=== PATIENT | female | born 1950 | race Caucasian/White ===

== ENCOUNTER → 2017-07-13 | Outpatient (CLI) | payer OTHER | LOC: M WUC 14:29 | DX: J20.9 Acute bronchitis, unspecified (principal) ==

== ENCOUNTER 2018-04-18 07:52 | Inpatient (IN) | payer OTHER, MEDICARE ==
[~2018-04-18] VITALS: Ht 172.7 cm; Wt 87.3 kg
[2018-04-18] MEDS ORDERED: HYDR-3713 PO (08:12)
[2018-04-18] MEDS ORDERED: ATOR1TAB19 PO (08:12)
[2018-04-18] MEDS ORDERED: METO1TAB7 PO (08:12)
[2018-04-18] MEDS ORDERED: IBUP-1022 PO (08:12)
[2018-04-18] MEDS ORDERED: ACETAMINOPHEN 325 MG TAB PO ONE (08:15)
[2018-04-18] MEDS ORDERED: LIDOCAINE 5% (LIDODERM) PATCH TD ONE (08:15)
[2018-04-18 08:34] LABS: BASO % 0.3 % (0.0-1.0); EOS % 0.1 % (0.0-3.0); HEMATOCRIT 42.8 % (36.0-47.0); HEMOGLOBIN 14.9 g/dl (12.0-15.5); LYMPH # 1.2 10^3/uL (1.5-4.5); LYMPH % 18.1 % (24.0-44.0); MEAN CORPUSCULAR HEMOGLOBIN 30.5 pg (27.0-33.0); MEAN CORPUSCULAR HGB CONC 34.8 g/dl (32.0-36.5); MEAN CORPUSCULAR VOLUME 87.5 fl (80.0-96.0); MONO # 0.3 10^3/uL (0.0-0.8); MONO % 4.9 % (0.0-5.0); NEUTROPHILS # 5.2 10^3/uL (1.8-7.7); PLATELET COUNT, AUTOMATED 291 10^3/uL (150-450); RED BLOOD COUNT 4.89 10^6/uL (4.00-5.40); WHITE BLOOD COUNT 6.8 10^3/uL (4.0-10.0)
[2018-04-18 09:09] LABS: ALBUMIN 4.3 GM/DL (3.2-5.2); ALT/SGPT 50 U/L (12-78); BILIRUBIN,TOTAL 0.6 MG/DL (0.2-1.0); BLOOD UREA NITROGEN 15 MG/DL (7-18); CALCIUM LEVEL 9.7 MG/DL (8.8-10.2); CARBON DIOXIDE LEVEL 21 MEQ/L (21-32); CHLORIDE LEVEL 104 MEQ/L (98-107); CREATININE FOR GFR 0.72 MG/DL (0.55-1.30); GLOMERULAR FILTRATION RATE > 60.0 (>45); GLUCOSE, FASTING 130 MG/DL (70-100); POTASSIUM SERUM 3.7 MEQ/L (3.5-5.1); SODIUM LEVEL 138 MEQ/L (136-145); TOTAL PROTEIN 7.2 GM/DL (6.4-8.2)
--- NOTE | 2018-04-18 09:19 | REP ---
CT abdomen and pelvis without contrast: History: Right-sided back pain. Flank pain. No comparison study. Findings: Preliminary digital application architect radiograph demonstrates a large rim calcification in the right upper quadrant. Bowel gas pattern is normal. On axial images at the lung bases, there is a nodular opacity at the right lower lobe which is incompletely evaluated 6 mm in greatest diameter visible on the uppermost 3 mm slice in the examination. There is linear fibrosis in the lingula. Lung bases are otherwise clear. The liver and spleen are normal in size, homogeneous in texture. There is a small accessory splenule. There is a small sliding hiatal hernia. A large calcified gallstone is seen in the lumen of the gallbladder. Gallbladder wall is not visibly thickened. Normal adrenal glands are seen bilaterally. No pancreatic abnormality is observed. The kidneys appear morphologically intact. No hydronephrosis or intrarenal calculus is seen. There is a dextroconvex scoliotic curve. Normal appendix is seen retrocecal in position. Small and large intestinal bowel loops are unremarkable. There is a small cyst in the right adnexa consistent with an ovarian cyst. This measures 2.7 cm in diameter. No uterine or left adnexal abnormality is seen. Urinary bladder is unremarkable. There is no evidence of diverticulosis or diverticulitis. No abdominal wall defect is seen. There is no evidence of free air or abnormal fluid collection. Bone window settings show no bony destructive lesion. Impression: Cholelithiasis with a large densely calcified gallstone in the gallbladder lumen. Small sliding-type hiatal hernia. Normal appendix. No urinary calculus or hydronephrosis seen. Also noted is a 6 mm nodule in the right lower lobe at the upper most slice in the CT acquisition. This is incompletely seen. Consider chest CT study. Electronically Signed by Mukul Bhatia MD 04/18/2018 11:27 A
[2018-04-18] MEDS: MORPHINE 4 MG/ML 1ML VIAL/SYRINGE (J2270) IV PRN ×4 (09:33→18:03)
[2018-04-18] MEDS ORDERED: diazePAM 5 MG TAB PO ONE (11:30)
[2018-04-18 12:21] LABS: C REACTIVE PROTEIN QUANTITATIV < 0.30 MG/DL (0.00-0.30)
[2018-04-18 12:59] LABS: ERYTHROCYTE SEDIMENTATION RATE 7 mm/hr (0-30)
--- NOTE | 2018-04-18 14:13 | REP ---
Pelvis right hip: Three views. History: Pain. Findings: AP view of the pelvis and AP and frog-leg views of the right hip are presented. Femoral heads are smooth and rounded and hip joint spaces are preserved. No hip fracture or pelvic fracture is seen. No sacral fractures noted. Visualized bowel gas pattern is unremarkable. Impression: No acute bony abnormality. Electronically Signed by Mukul Bhatia MD 04/18/2018 02:05 P
[2018-04-18] MEDS ORDERED: ADVI200T26 PO (14:57)
[2018-04-18] MEDS ORDERED: ALEV220T26 PO (14:57)
[2018-04-18] MEDS ORDERED: CALCTAB8 PO (14:57)
[2018-04-18] MEDS ORDERED: TURM500T PO (14:57)
[2018-04-18] MEDS ORDERED: ACETAMINOPHEN TAB 650MG DOSE (2X325MG) PO PRN (15:00)
--- NOTE | 2018-04-18 15:52 | HPE ---
DATE OF ADMISSION: 04/18/2018 PRIMARY CARE PROVIDER: Dr. Bonds CONSULTANTS: Dr. Adame from orthopaedic service ATTENDING PHYSICIAN: Dr. Taylor Cano CHIEF COMPLAINT: Intractable low back pain since Sunday. HISTORY OF PRESENT ILLNESS: The patient is a 68-year-old white female who presents to the hospital for evaluation of worsening low back pain. The history is provided by herself and she is a good historian. She states back to 1986 she had an L5 disc herniation for which she underwent surgical treatment. She does not have chronic low back pain. Also, she states she is receiving physical therapy with a physical therapist regularly. She states she was fine until Sunday when she woke up, she says she felt a little bit of pain in her low back which was mild and she was still able to be functioning normally. Prior to that she denies any injury or fall. However, in the next couple of days, her pain was getting worse gradually and she was trying to see her physical therapist but did not get an appointment yet. Today, she stated her pain is up to a 10/10 pain. She was trying to take nonsteroidal antiinflammatory drugs (NSAIDs) which did not help her. Also, she states sometimes the pain radiates to her right buttock and right lower extremity and she feels some numbness in the right side. She does not have any difficulty urinating or with bowel movements. After she came to the emergency room (ER), she was given IV morphine. After that, her pain has been getting better. She underwent x-ray, CT scan which was not significant. Due to worsening pain, she had a lumbar spine MRI done in the ER but formal report is pending at this point in time. Initially, the ER was planning to discharge her home. However, she has severe pain and not able to ambulate, so medicine service was called for admission. REVIEW OF SYSTEMS: Denies fever, no chills. No headache, no blurred vision. No shortness of breath, no chest pain. No abdominal pain, no nausea, no vomiting, no diarrhea or constipation. No dysuria. Except lower back and right buttock pain, otherwise not any other complaints. All other systems reviewed, but negative. PAST MEDICAL HISTORY: 1. Hypertension. 2. Dyslipidemia. PAST SURGICAL HISTORY: L5 disc surgery back to 1986, breast reduction, and tubal ligation. ALLERGIES: She is allergic to ERYTHROMYCIN, STREPTOMYCIN. SOCIAL HISTORY: Denies tobacco use. Denies alcohol abuse. Denies illicit drug abuse. She is living at home with her . She is a [employer]. FAMILY HISTORY: Both parents . Father from lymphoma and mother from leukemia. MEDICATIONS: Reviewed. PHYSICAL EXAMINATION: VITAL SIGNS: Temperature 97.4, heart rate 76, respiratory rate 18, blood pressure 170/89, oxygen saturation 99% on room air. GENERAL: She is awake, alert, oriented times three. She is in acute distress. HEENT: Atraumatic. Pupils equal, round, reactive to light. Ears, nose, and throat normal. No jaundice. Extraocular muscles intact. Mouth: Mucosa not dry. NECK: No jugular venous distention (JVD), no bruits. LUNGS: Clear, no wheezing, no crackles. HEART: S1, S2, regular, no murmur. ABDOMEN: Soft, bowel sounds positive, nontender. LOWER EXTREMITIES: No edema in bilateral lower extremities. NEUROLOGICAL: Focal, and regarding her low back pain she has severe tenderness in her right buttock area and also any movement of the right lower extremity makes the pain worse. SKIN: No rash. PSYCHOLOGICAL: No acute psychosis. DIAGNOSTIC AND LABORATORIES: Include the following: CBC and differential: WBC 6.8, hemoglobin and hematocrit 14.9/42, platelets 291. Sodium 138, potassium 3.7, chloride 104, bicarbonate 21, BUN 15, creatinine 0.7, glucose 130. CT of the abdomen and pelvis demonstrated positive gallstone. Lumbar spine MRI is pending. IMPRESSION: 1. Intractable low back pain. 2. Hypertension. 3. Dyslipidemia. PLAN: Patient will be admitted to the medical/surgical floor. Will treat with symptomatic and supportive. Will start her on oral steroid. Dr. Adame will consult on the patient. BRINDA
--- NOTE | 2018-04-18 15:57 | REP ---
MR LUMBAR SPINE WITHOUT CONTRAST: HISTORY: Back and right leg pain. Decreased signal intensity on T2-weighted images is present in the L2-3 through L5-S1 intervertebral discs. The discs are decreased in height. These findings are consistent with disc degeneration. A diffuse disc bulge is present at the L1-2 level. There is minimal compression of the thecal sac. There is hypertrophy of the ligamenta flava and posterior articulating facets. L1 nerves exit the neural foramina without compression. A diffuse disc bulge is present at the L2-3 level. There is minimal compression of the thecal sac. There is hypertrophy of the ligamenta flava and posterior articulating facets. The L2 nerves exit the neural foramina without compression. A diffuse disc bulge is present at the L3-4 level. There is hypertrophy of the ligamenta flava and posterior articulating facets. These findings produce mild central canal stenosis. There is compression of the left L3 nerve in the neural foramen. The right L3 nerve exits the neural foramen without compression. A diffuse disc bulge and mild sized right paracentral disc extrusion are present at the L4-5 level. there is inferior migration of disc material. There is hypertrophy of the ligamenta flava and posterior articulating facets. These findings produce moderate central canal stenosis. There is compression of the right L5 nerve in the right L5 lateral recess. The L4 nerves exit the neural foramina without compression. A diffuse disc bulge is present at the L5-S1 level. This abuts the thecal sac. There are 3 mm of retrolisthesis of L5 on S1. There is hypertrophy of the posterior articulating facets. There is compression of the right L5 nerve in the neural foramen. The left L5 nerve exits the neural foramen without compression. A right laminectomy defect is present. Scar tissue is present in the right lateral aspect of the spinal canal. The scar tissue involves the right S1 nerve. The conus medullaris is normal in appearance terminating at the level of the T12-L1 intervertebral discs . Increased signal intensity on T2-weighted images is present in the end plates of the L3-L4 vertebral bodies. This represents degenerative changes. IMPRESSION: 1. Diffuse disc bulges at the L1-2 and L2-3 levels with minimal thecal sac compression. 2. Mild central canal stenosis at the L3-4 level secondary to disc bulge, ligamentous, and facet hypertrophy. There is compression of the left L3 nerve in the neural foramen. 3. Moderate central stenosis at the L4-5 level secondary to disc bulge, disc extrusion, ligamentous and facet hypertrophy. There is compression of the right L5 nerve in the right L5 lateral recess. 4. Diffuse disc bulge at the L5-S1 level. This abuts the thecal sac. There is compression of the right L5 nerve in the neural foramen. A right laminectomy defect is present. Scar tissue involves the right S1 nerve. Electronically Signed by Michael Moncada MD 04/18/2018 04:32 P
[2018-04-18] MEDS ORDERED: methylPREDNISolone 4 MG TAB PO ONE ×2 (16:00→21:00)
[2018-04-18] MEDS: PERCOCET 5MG/325MG TAB PO PRN ×2 (16:03→20:55)
[2018-04-18 17:16] VITALS: BP 164/74
--- NOTE | 2018-04-18 17:35 | CR ---
DATE OF CONSULTATION: 04/18/2018 CONSULTATION FOR: Dr. Sheldon This is a 68-year-old woman I was asked to evaluate for significant low back pain and right lower extremity radiculopathy over the past 3 days. She relates that she had a discectomy at L5-S1 I believe back in [address] Bergman and has overall done pretty well with her back. She intermittently sees a chiropractor for back and neck issues. She does intermittently get some right lower extremity sciatica, but she backs off her activity and the symptoms seem to subside. She thinks that Sunday night or Sunday morning when she awoke that she started having this right-sided lower back pain and buttocks pain that occasionally radiates down her right leg to the bottom of her foot. No real numbness. No bowel/bladder incontinence. No weakness, but she says the pain has gotten gradually worse. She has tried anti-inflammatory medications without much benefit, did get some benefit out of IV medication in the emergency room. She has had a CT scan, MRI scan done so far. Has also had plain x-rays of her pelvis and hip. REVIEW OF SYSTEMS: Denies any fever or chills. She denies any blurred vision or shortness of breath. No chest pain. Denies any abdominal pain, nausea. She denies any endocrine abnormalities. No dysuria. No incontinence. PAST MEDICAL HISTORY: Notable for hypertension and hyperlipidemia. PAST SURGICAL HISTORY: As noted for L5-S1 discectomy back in 1986, breast reduction and tubal ligation. ALLERGIES: Include ERYTHROMYCIN and STREPTOMYCIN. SOCIAL HISTORY: She lives with her . Denies any drug or alcohol use. Denies tobacco use. FAMILY HISTORY: Otherwise noncontributory to this situation. MEDICATIONS: As above. PHYSICAL EXAMINATION: She is alert and oriented, in some distress, some degree of right-sided lower back discomfort. She is not currently getting any sciatic symptoms. HEENT: Extraocular muscles intact. She has regular rate and rhythm to her breathing. Regular pulse. Abdomen: Soft, nontender. Extremities were somewhat limited to exam due to her discomfort. She was able to dorsiflex her ankles, 5/5 strength. She had good plantar flexion. She has what appears to be 2+ reflexes in her knees and difficult to gauge her ankle reflexes. She has no obvious muscle atrophy. She does relate some right-sided lower back tenderness and right buttocks tenderness. Lab work as noted. CT scan abdomen and pelvis was obtained which shows cholelithiasis with a large gallstone. Hiatal hernia. No hydronephrosis. A nodule in the right lower lobe of the lung, and they are recommending considering a chest CT study. The pelvis and hip x-ray was otherwise unremarkable. No significant evidence of any fracture or arthritic change. Her lumbar spine MRI showed disc bulges at L1-2 and L2-3. There was some mild stenosis at L3-4 with compression of the left L3 nerve root, moderate stenosis at L4-5 with compression of the right L5 nerve in the right L5 lateral recess. Diffuse disc bulging at L5-S1. This also causes compression on the right L5 nerve root. Previous surgical findings noted. There is some right S1 nerve root scarring per this report. IMPRESSION: Low back pain and right lower extremity sciatica that is fairly significant. RECOMMENDATIONS: 1. Activity as tolerated and would consider physical therapy evaluation and treatment. 2. Would recommend hospitalist consideration for working up the right lower lobe finding on the CT scan. 3. As I discussed with the consulting physician, I would advise getting the pain service involved as soon as possible, especially given that the weekend is coming up, for consideration for epidural steroid injections. I hope that this is something that could be accomplished tomorrow, and I think would be likely helpful for her. 4. Continue with intravenous (IV) pain medication per routine. 5. If she has any worsening symptoms or bowel, bladder changes, or incontinence, or weakness, then please contact us immediately. 6. If she is refractory to conservative management, we certainly could get an opinion from an orthopedic spine surgeon. Thank you for the consult.
[2018-04-18] MEDS: DOCUSATE SODIUM 100 MG CAP PO SCH (20:53)
[2018-04-18] MEDS: HEPARIN SOD (PORCINE) 5000 UNITS/ML VIAL SC SCH (20:53)
[2018-04-18] MEDS: ATORVASTATIN 10 MG TAB PO SCH (20:53)
[2018-04-18 22:00] VITALS: BP 172/82
[2018-04-18] MEDS: **NOTE PATIENT COMMENT** MISC XX SCH (23:35)
[2018-04-18] MEDS: METOPROLOL SUCC (TopROL XL) 50MG **XL** TAB PO SCH (23:36)
[2018-04-19] MEDS: MORPHINE 4 MG/ML 1ML VIAL/SYRINGE (J2270) IV PRN ×5 (00:12→22:36)
[2018-04-19] MEDS: PERCOCET 5MG/325MG TAB PO PRN ×5 (04:39→22:37)
[2018-04-19] MEDS: HEPARIN SOD (PORCINE) 5000 UNITS/ML VIAL SC SCH ×4 (05:56→20:51)
[2018-04-19 06:00] VITALS: BP 153/71
[2018-04-19 08:41] LABS: BASO % 0.1 % (0.0-1.0); HEMOGLOBIN 15.1 g/dl (12.0-15.5); LYMPH # 1.5 10^3/uL (1.5-4.5); LYMPH % 17.7 % (24.0-44.0); MEAN CORPUSCULAR HEMOGLOBIN 30.5 pg (27.0-33.0); MEAN CORPUSCULAR HGB CONC 33.6 g/dl (32.0-36.5); MEAN CORPUSCULAR VOLUME 90.9 fl (80.0-96.0); MONO # 0.2 10^3/uL (0.0-0.8); MONO % 2.8 % (0.0-5.0); NEUTROPHILS # 6.5 10^3/uL (1.8-7.7); NEUTROPHILS % 78.8 % (36.0-66.0); PLATELET COUNT, AUTOMATED 337 10^3/uL (150-450); RED BLOOD COUNT 4.95 10^6/uL (4.00-5.40); WHITE BLOOD COUNT 8.3 10^3/uL (4.0-10.0)
[2018-04-19] MEDS: DOCUSATE SODIUM 100 MG CAP PO SCH ×2 (08:41→20:51)
[2018-04-19] MEDS: PANTOPRAZOLE 40MG TAB (PROTONIX) PO SCH (08:43)
[2018-04-19] MEDS: methylPREDNISolone 4 MG TAB PO SCH ×3 (08:44→20:51)
[2018-04-19 09:04] LABS: BLOOD UREA NITROGEN 15 MG/DL (7-18); C REACTIVE PROTEIN QUANTITATIV < 0.30 MG/DL (0.00-0.30); CALCIUM LEVEL 9.5 MG/DL (8.8-10.2); CARBON DIOXIDE LEVEL 25 MEQ/L (21-32); CHLORIDE LEVEL 104 MEQ/L (98-107); CREATININE FOR GFR 0.79 MG/DL (0.55-1.30); GLOMERULAR FILTRATION RATE > 60.0 (>45); GLUCOSE, FASTING 121 MG/DL (70-100); POTASSIUM SERUM 4.6 MEQ/L (3.5-5.1); SODIUM LEVEL 138 MEQ/L (136-145)
[2018-04-19 09:14] LABS: ERYTHROCYTE SEDIMENTATION RATE 5 mm/hr (0-30)
[2018-04-19] MEDS ORDERED: ISOVUE-370 76% 100ML VIAL (Q9967) As Ordered ONE (13:02)
--- NOTE | 2018-04-19 13:11 | IPNPDOC ---
Date Seen The patient was seen on 04/19/18. Progress Note SUBJECTIVE: Denies fever, no chills. No headache, no blurred vision. No shortness of breath, no chest pain. No abdominal pain, no nausea, no vomiting, no diarrhea or constipation. No dysuria. Except lower back and right buttock pain, otherwise not any other complaints. All other systems reviewed, but negative. OBJECTIVE: PHYSICAL EXAMINATION: VITAL SIGNS: PLS SEE BELOW GENERAL: She is awake, alert, oriented times three. She is in acute distress. HEENT: Atraumatic. Pupils equal, round, reactive to light. Ears, nose, and throat normal. No jaundice. Extraocular muscles intact. Mouth: Mucosa not dry. NECK: No jugular venous distention (JVD), no bruits. LUNGS: Clear, no wheezing, no crackles. HEART: S1, S2, regular, no murmur. ABDOMEN: Soft, bowel sounds positive, nontender. LOWER EXTREMITIES: No edema in bilateral lower extremities. NEUROLOGICAL: Focal, and regarding her low back pain she has severe tenderness in her right buttock area and also any movement of the right lower extremity makes the pain worse. SKIN: No rash. PSYCHOLOGICAL: No acute psychosis. DIAGNOSTIC AND LABORATORIES: ON HOSPITAL ADMISSION CBC and differential: WBC 6.8, hemoglobin and hematocrit 14.9/42, platelets 291. Sodium 138, potassium 3.7, chloride 104, bicarbonate 21, BUN 15, creatinine 0.7, glucose 130. IMAGING STUDIES: MR LUMBAR SPINE WITHOUT CONTRAST: HISTORY: Back and right leg pain. Decreased signal intensity on T2-weighted images is present in the L2-3 through L5-S1 intervertebral discs. The discs are decreased in height. These findings are consistent with disc degeneration. A diffuse disc bulge is present at the L1-2 level. There is minimal compression of the thecal sac. There is hypertrophy of the ligamenta flava and posterior articulating facets. L1 nerves exit the neural foramina without compression. A diffuse disc bulge is present at the L2-3 level. There is minimal compression of the thecal sac. There is hypertrophy of the ligamenta flava and posterior articulating facets. The L2 nerves exit the neural foramina without compression. A diffuse disc bulge is present at the L3-4 level. There is hypertrophy of the ligamenta flava and posterior articulating facets. These findings produce mild central canal stenosis. There is compression of the left L3 nerve in the neural foramen. The right L3 nerve exits the neural foramen without compression. A diffuse disc bulge and mild sized right paracentral disc extrusion are present at the L4-5 level. there is inferior migration of disc material. There is hypertrophy of the ligamenta flava and posterior articulating facets. These findings produce moderate central canal stenosis. There is compression of the right L5 nerve in the right L5 lateral recess. The L4 nerves exit the neural foramina without compression. A diffuse disc bulge is present at the L5-S1 level. This abuts the thecal sac. There are 3 mm of retrolisthesis of L5 on S1. There is hypertrophy of the posterior articulating facets. There is compression of the right L5 nerve in the neural foramen. The left L5 nerve exits the neural foramen without compression. A right laminectomy defect is present. Scar tissue is present in the right lateral aspect of the spinal canal. The scar tissue involves the right S1 nerve. The conus medullaris is normal in appearance terminating at the level of the T12-L1 intervertebral discs . Increased signal intensity on T2-weighted images is present in the end plates of the L3-L4 vertebral bodies. This represents degenerative changes. IMPRESSION: 1. Diffuse disc bulges at the L1-2 and L2-3 levels with minimal thecal sac compression. 2. Mild central canal stenosis at the L3-4 level secondary to disc bulge, ligamentous, and facet hypertrophy. There is compression of the left L3 nerve in the neural foramen. 3. Moderate central stenosis at the L4-5 level secondary to disc bulge, disc extrusion, ligamentous and facet hypertrophy. There is compression of the right L5 nerve in the right L5 lateral recess. 4. Diffuse disc bulge at the L5-S1 level. This abuts the thecal sac. There is compression of the right L5 nerve in the neural foramen. A right laminectomy defect is present. Scar tissue involves the right S1 nerve. Electronically Signed by Michael Moncada MD 04/18/2018 04:32 P DD: Michael Moncada MD 04/18/18 1330 DT: VERNON 04/18/18 1556 DS: DANIELLE 04/18/18 1632 04/18/[address] abdomen and pelvis without contrast: History: Right-sided back pain. Flank pain. No comparison study. Findings: Preliminary digital lacing string cutter radiograph demonstrates a large rim calcification in the right upper quadrant. Bowel gas pattern is normal. On axial images at the lung bases, there is a nodular opacity at the right lower lobe which is incompletely evaluated 6 mm in greatest diameter visible on the uppermost 3 mm slice in the examination. There is linear fibrosis in the lingula. Lung bases are otherwise clear. The liver and spleen are normal in size, homogeneous in texture. There is a small accessory splenule. There is a small sliding hiatal hernia. A large calcified gallstone is seen in the lumen of the gallbladder. Gallbladder wall is not visibly thickened. Normal adrenal glands are seen bilaterally. No pancreatic abnormality is observed. The kidneys appear morphologically intact. No hydronephrosis or intrarenal calculus is seen. There is a dextroconvex scoliotic curve. Normal appendix is seen retrocecal in position. Small and large intestinal bowel loops are unremarkable. There is a small cyst in the right adnexa consistent with an ovarian cyst. This measures 2.7 cm in diameter. No uterine or left adnexal abnormality is seen. Urinary bladder is unremarkable. There is no evidence of diverticulosis or diverticulitis. No abdominal wall defect is seen. There is no evidence of free air or abnormal fluid collection. Bone window settings show no bony destructive lesion Impression: Cholelithiasis with a large densely calcified gallstone in the gallbladder lumen. Small sliding-type hiatal hernia. Normal appendix. No urinary calculus or hydronephrosis seen. Also noted is a 6 mm nodule in the right lower lobe at the upper most slice in the CT acquisition. This is incompletely seen. Consider chest CT study. Electronically Signed by Mukul Bhatia MD 04/18/2018 11:27 A DD: Mukul Bhatia MD 04/18/18 0900 DT: NYDIA 04/18/18 0916 DS: JOLENE 04/18/18 1127 04/18/18 1127 Pelvis right hip: Three views. History: Pain. Findings: AP view of the pelvis and AP and frog-leg views of the right hip are presented. Femoral heads are smooth and rounded and hip joint spaces are preserved. No hip fracture or pelvic fracture is seen. No sacral fractures noted. Visualized bowel gas pattern is unremarkable. Impression: No acute bony abnormality. Electronically Signed by Mukul Bhatia MD 04/18/2018 02:05 P DD: Mukul Bhatia MD 04/18/18 1404 DT: Meri 04/18/18 1405 DS: JOLENE 04/18/18 1405 04/18/18 1405 ASSESSMENT AND PLAN: The patient is a 68-year-old white female who presents to the hospital for evaluation of worsening low back pain. The history is provided by herself and she is a good historian. She states back to 1986 she had an L5 disc herniation for which she underwent surgical treatment. She does not have chronic low back pain. Also, she states she is receiving physical therapy with a physical therapist regularly. She states she was fine until Sunday when she woke up, she says she felt a little bit of pain in her low back which was mild and she was still able to be functioning normally. Prior to that she denies any injury or fall. However, in the next couple of days, her pain was getting worse gradually and she was trying to see her physical therapist but did not get an appointment yet. Today, she stated her pain is up to a 10/10 pain. She was trying to take nonsteroidal antiinflammatory drugs (NSAIDs) which did not help her. Also, she states sometimes the pain radiates to her right buttock and right lower extremity and she feels some numbness in the right side. She does not have any difficulty urinating or with bowel movements. After she came to the emergency room (ER), she was given IV morphine. After that, her pain has been getting better. She underwent x-ray, CT scan which was not sign ificant. Due to worsening pain, she had a lumbar spine MRI done in the ER but formal report is pending at this point in time. Initially, the ER was planning to discharge her home. However, she has severe pain and not able to ambulate, so medicine service was called for admission. Intractable Back pain due to Diffuse disc bulges at the L1-2 and L2-3 levels with minimal thecal sac compression. Mild central canal stenosis at the L3-4 level secondary to disc bulge, ligamentous, and facet hypertrophy. There is compression of the left L3 nerve in the neural foramen. Moderate central stenosis at the L4-5 level secondary to disc bulge, disc extrusion, ligamentous and facet hypertrophy. There is compression of the right L5 nerve in the right L5 lateral recess. Diffuse disc bulge at the L5-S1 level. This abuts the thecal sac. There is compression of the right L5 nerve in the neural foramen. A right laminectomy defect is present. Scar tissue involves the right S1 nerve. Pt has been given prn po opioids, with no relief. Per Orthopedic surgical consultation, pain management has been consulted for epidural injections and physical therapy/ARU screen. Pt did not have signs and symptoms of myelopathy at this time. nodular opacity at the right lower lobe which is incompletely evaluated 6 mm in greatest diameter was found on CT abd/pelvis 04/18/18. 04/19/18 Ct chest with iv contrast has been ordered. Pt denies any tobacco use. Cholelithiasis with a large densely calcified gallstone in the gallbladder lumen has been found incidentally on CT abd/pelvis 04/18/18. She had no complaints of biliary colic, jaundice, abdominal pain, nausea, or vomiting. no fever or chills. if patient becomes symptomatic,may need to monitor bilirubin levels and surgical consultation for outpt laparoscopic cholecystectomy. Small sliding-type hiatal hernia. Pt does not complain of GERD symptoms. no need for further workup. She denies any hematemesis, dysphagia, or wt loss. HTN, uncontrolled due to back pain. continued on home meds, and added norvasc qhs with holding parameters. hyperlipidemia. chronic, resume home meds. L5-S1 discectomy 1987 defer to ortho for surgical recommendations pain mgt for poain control History of breast reduction and tubal ligation. DVT prophylaxis: compression stockings Diet: DASH Code status: full code VS, I&O, 24H, Fishbone Vital Signs/I&O Vital Signs Date Time Temp Pulse Resp B/P (MAP) Pulse Ox O2 Delivery O2 Flow Rate FiO2 04/19/18 12:26 18 04/19/18 06:00 96.8 60 153/71 (98) 95 Room Air I&O- Last 24 Hours up to 6 AM 04/19/18 06:00 Intake Total 2280 ml Output Total 1520 ml Balance 760 ml Laboratory Data 24H LABS Laboratory Tests 2 04/18/18 15:10: Urine Color YELLOW, Urine Appearance HAZY, Urine pH 7.0, Urine Specific [place] 1.010, Urine Protein NEGATIVE, Urine Glucose (UA) NEGATIVE, Urine Ketones NEGATIVE, Urine Blood NEGATIVE, Urine Nitrite NEGATIVE, Urine Bilirubin NEGATIVE, Urine Urobilinogen 0.2, Urine Leukocyte Esterase 1+H, Urine WBC (Auto) 5H, Urine RBC (Auto) 3, Urine Hyaline Casts (Auto) 0, Urine Bacteria (Auto) 1+H, Urine Squamous Epithelial Cells 1, Urine Mucus (Auto) SMALL, Urine Sperm (Auto) 04/19/18 08:15: Immature Granulocyte % (Auto) 0.6, White Blood Count 8.3, Red Blood Count 4.95, Hemoglobin 15.1, Hematocrit 45.0, Mean Corpuscular Volume 90.9, Mean Corpuscular Hemoglobin 30.5, Mean Corpuscular Hemoglobin Concent 33.6, Red Cell Distribution Width 12.0, Platelet Count 337, Neutrophils (%) (Auto) 78.8H, Lymphocytes (%) (Auto) 17.7L, Monocytes (%) (Auto) 2.8, Eosinophils (%) (Auto) 0.0, Basophils (%) (Auto) 0.1, Neutrophils # (Auto) 6.5, Lymphocytes # (Auto) 1.5, Monocytes # (Auto) 0.2, Eosinophils # (Auto) 0.0, Basophils # (Auto) 0.0, Nucleated Red Blood Cells % (auto) 0.0, Erythrocyte Sedimentation Rate 5, Anion Gap 9, Glom erular Filtration Rate > 60.0, Blood Urea Nitrogen 15, Creatinine 0.79, Sodium Level 138, Potassium Level 4.6#, Chloride Level 104, Carbon Dioxide Level 25, Calcium Level 9.5, C-Reactive Protein, Quantitative < 0.30 CBC/BMP Laboratory Tests 04/19/18 08:15 Red Blood Count 4.95, Mean Corpuscular Volume 90.9, Mean Corpuscular Hemoglobin 30.5, Mean Corpuscular Hemoglobin Concent 33.6, Red Cell Distribution Width 12.0, Neutrophils (%) (Auto) 78.8 H, Lymphocytes (%) (Auto) 17.7 L, Monocytes (%) (Auto) 2.8, Eosinophils (%) (Auto) 0.0, Basophils (%) (Auto) 0.1, Neutrophils # (Auto) 6.5, Lymphocytes # (Auto) 1.5, Monocytes # (Auto) 0.2, Eosinophils # (Auto) 0.0, Basophils # (Auto) 0.0, Calcium Level 9.5 Microbiology Microbiology 04/18/18 Urine Culture - Final, Complete LA ESPARZA MD Apr 19, 2018 12:51
--- NOTE | 2018-04-19 13:46 | CR ---
DATE OF CONSULTATION: 04/19/2018 CHIEF COMPLAINT: Low back pain, right leg pain. HISTORY OF PRESENT ILLNESS: Michelle is a generally healthy female who was admitted yesterday for intractable low back and right leg pain. History of lumbar surgery in the late 1980s and was doing well up until this past week. She does attend reproductive healthcare assistant and does home stretching and physical therapy (PT) over the years that has been helpful. She was unable to move due to pain. Denies any precipitating event. MRI imaging is showing disk protrusion and compression of the right L5 nerve and the right L5 lateral recess. Today, she is complaining of weakness and pain with any movement. She is unable to sit on her right buttock area. Denies bowel or bladder incontinence. PAST MEDICAL HISTORY: Hypertension and hyperlipidemia. PAST SURGICAL HISTORY: L5 disk surgery in 1986. Breast reduction. Tubal ligation. ALLERGIES: - ERYTHROMYCIN - STREPTOMYCIN SOCIAL HISTORY: She lives with her who is disabled. Denies tobacco use. Denies alcohol use. Denies illicit drug use. FAMILY HISTORY: Noncontributory. MEDICATIONS: Reviewed. PHYSICAL EXAMINATION: Awake, alert, pleasant, appears uncomfortable with any movement. Vital signs: 96.8, 60, 18, blood pressure (BP) of 153/71, and O2 sat 95% on room air. Cardiac: S1 and S2, normal rate and rhythm. Respiratory: Lung sounds clear. Respirations nonlabored. Inspection of Spine: Marked tenderness noted over right lumbar paraspinal area. Tenderness over right sacroiliac joint (SIJ) area. Neurologic: Normal sensation to light touch lower extremities. The patient is weak over right leg. ASSESSMENT: 1. Acute low back pain. 2. Lumbar radiculopathy. PLAN: 1. The patient will be brought to the pain clinic on Sunday for lumbar epidural steroid. I would suggest the addition of gabapentin 100 mg three times a day for lumbar radicular symptoms of the right leg. I would recommend using a muscle relaxant such as Soma 350 mg three times a day. Continue her current pain medications as needed for severe pain episodes. She will be holding the heparin dose on April 21 after her last dose. She is to be brought over by stretcher at 2:00 p.m. on April 22, for L4-5 lumbar epidural steroid injection (LESI). She is to be n.p.o. after the morning breakfast on April 22. Clear fluids stopped at 12 noon on April 22. Thank you for allowing us to participate in the care of your patient, Michelle Vallejo. If you should have questions or concerns, please do not hesitate to contact us. BRINDA
[2018-04-19 14:00] VITALS: BP 171/76
--- NOTE | 2018-04-19 19:23 | REP ---
Clinical: Right lower lobe nodule. Technique: Axial contrast enhanced images from the thoracic inlet to the upper abdomen with coronal and sagittal re-formations using 100 ml Isovue 370 intravenous contrast material. Comparison: Lung base images from abdominal CT dated 04/18/2018. Findings: The 6 mm density on the previous examination corresponds to a 6 mm non solid density (image 53) along the anterior right lower lobe and is otherwise nonspecific. A 3 mm noncalcified nodule is also identified along the periphery of the right upper lobe (image 31). Trace left basilar and lingular fibroatelectatic changes are noted along with very minimal scattered scarring. No consolidation, effusion, or pneumothorax. Tracheobronchial tree is patent. No significant axillary, hilar, or mediastinal adenopathy. Mediastinum demonstrates normal thoracic aorta and pulmonary vasculature along with atherosclerotic changes to the coronary arteries. No cardiomegaly or pericardial effusion. Musculoskeletal structures are intact and without focal osseous abnormality. 12 mm hypodense lesion in the left thyroid lobe is nonspecific but may warrant thyroid ultrasound follow-up. Limited upper abdomen demonstrates normal bilateral adrenal glands along with cholelithiasis. Impression: 1. The 6 mm density identified on previous abdominal CT corresponds to a 6 mm non solid density and is likely chronic. A 3 mm noncalcified nodules identified in the periphery of the right upper lobe. Consider reevaluation in 6-9 months. 2. Minimal scattered chronic interstitial changes without further acute mediastinal or pleuroparenchymal process. 3. Atherosclerotic changes to the coronary arteries. 4. Cholelithiasis. 5. 12 mm hypodense lesion in the left thyroid lobe may warrant ultrasound follow-up. Electronically Signed by Alexandru Amezcua MD 04/19/2018 07:07 P
[2018-04-19] MEDS: ATORVASTATIN 10 MG TAB PO SCH (20:51)
[2018-04-19] MEDS: METOPROLOL SUCC (TopROL XL) 50MG **XL** TAB PO SCH (20:52)
[2018-04-19] MEDS: **NOTE PATIENT COMMENT** MISC XX SCH (20:59)
[2018-04-19 22:00] VITALS: BP 154/73
[2018-04-20] MEDS: PERCOCET 5MG/325MG TAB PO PRN ×5 (03:19→22:12)
[2018-04-20 06:00] VITALS: BP 149/77
[2018-04-20] MEDS: HEPARIN SOD (PORCINE) 5000 UNITS/ML VIAL SC SCH ×3 (06:00→21:42)
[2018-04-20] MEDS: MORPHINE 4 MG/ML 1ML VIAL/SYRINGE (J2270) IV PRN ×4 (06:43→22:13)
[2018-04-20 07:18] LABS: BASO % 0.3 % (0.0-1.0); EOS % 0.2 % (0.0-3.0); HEMATOCRIT 42.3 % (36.0-47.0); HEMOGLOBIN 14.3 g/dl (12.0-15.5); LYMPH # 2.9 10^3/uL (1.5-4.5); LYMPH % 32.3 % (24.0-44.0); MEAN CORPUSCULAR HEMOGLOBIN 30.2 pg (27.0-33.0); MEAN CORPUSCULAR HGB CONC 33.8 g/dl (32.0-36.5); MEAN CORPUSCULAR VOLUME 89.2 fl (80.0-96.0); MONO # 0.7 10^3/uL (0.0-0.8); MONO % 7.3 % (0.0-5.0); NEUTROPHILS # 5.3 10^3/uL (1.8-7.7); NEUTROPHILS % 59.2 % (36.0-66.0); PLATELET COUNT, AUTOMATED 305 10^3/uL (150-450); RED BLOOD COUNT 4.74 10^6/uL (4.00-5.40); WHITE BLOOD COUNT 8.9 10^3/uL (4.0-10.0)
[2018-04-20 07:40] LABS: BLOOD UREA NITROGEN 20 MG/DL (7-18); CALCIUM LEVEL 9.3 MG/DL (8.8-10.2); CARBON DIOXIDE LEVEL 26 MEQ/L (21-32); CHLORIDE LEVEL 104 MEQ/L (98-107); CHOLESTEROL LEVEL 176 MG/DL (<200); CHOLESTEROL RISK RATIO 2.666 (<5); CREATININE FOR GFR 0.78 MG/DL (0.55-1.30); GLOMERULAR FILTRATION RATE > 60.0 (>45); GLUCOSE, FASTING 104 MG/DL (70-100); HDL CHOLESTEROL 66 MG/DL (>40); LDL CHOLESTEROL 83 MG/DL (<100); NON-HDL-C 110 MG/DL; POTASSIUM SERUM 4.4 MEQ/L (3.5-5.1); SODIUM LEVEL 138 MEQ/L (136-145); TRIGLYCERIDES LEVEL 136 MG/DL (<150)
[2018-04-20] MEDS: methylPREDNISolone 4 MG TAB PO SCH ×2 (08:56→21:46)
[2018-04-20] MEDS: DOCUSATE SODIUM 100 MG CAP PO SCH ×2 (08:56→21:46)
[2018-04-20] MEDS: PANTOPRAZOLE 40MG TAB (PROTONIX) PO SCH (08:56)
[2018-04-20] MEDS: CARISOPRODOL 350 MG TAB PO SCH ×3 (09:49→21:46)
[2018-04-20] MEDS: GABAPENTIN 100 MG CAP PO SCH ×3 (09:49→21:42)
--- NOTE | 2018-04-20 10:43 | IPNPDOC ---
Date Seen The patient was seen on 04/20/18. Progress Note SUBJECTIVE: Pt was seen by pain mgt. she continues to have no relief w current regimen, and states that she missed a dose of pain med while sleeping and still trying to catch up. Per pain management recommendations: "pain clinic on Sunday for lumbar epidural steroid. I would suggest the addition of gabapentin 100 mg three times a day for lumbar radicular symptoms of the right leg. I would recommend using a muscle relaxant such as Soma 350 mg three times a day. Continue her current pain medications as needed for severe pain episodes. She will be holding the heparin dose on April 21 after her last dose. She is to be brought over by stretcher at 2:00 p.m. on Sunday, April 22, for L4-5 lumbar epidural steroid injection (LESI). She is to be n.p.o. after the morning breakfast on April 22. Clear fluids stopped at 12 noon on April 22." OBJECTIVE PHYSICAL EXAMINATION: VITAL SIGNS: Please see below. GENERAL: She is awake, alert, oriented times three. She is in acute distress. HEENT: Atraumatic. Pupils equal, round, reactive to light. Ears, nose, and throat normal. No jaundice. Extraocular muscles intact. Mouth: Mucosa not dry. NECK: No jugular venous distention (JVD), no bruits. LUNGS: Clear, no wheezing, no crackles. HEART: S1, S2, regular, no murmur. ABDOMEN: Soft, bowel sounds positive, nontender. LOWER EXTREMITIES: No edema in bilateral lower extremities. NEUROLOGICAL: Focal, and regarding her low back pain she has severe tenderness in her right buttock area and also any movement of the right lower extremity makes the pain worse. SKIN: No rash. PSYCHOLOGICAL: No acute psychosis. DIAGNOSTIC AND LABORATORIES: ON HOSPITAL ADMISSION CBC and differential: WBC 6.8, hemoglobin and hematocrit 14.9/42, platelets 291. Sodium 138, potassium 3.7, chloride 104, bicarbonate 21, BUN 15, creatinine 0.7, glucose 130. TODAY'S LABS: REVIEWED, PLS SEE BELOW IMAGING STUDIES: Clinical: Right lower lobe nodule. Technique: Axial contrast enhanced images from the thoracic inlet to the upper abdomen with coronal and sagittal re-formations using 100 ml Isovue 370 intravenous contrast material. Comparison: Lung base images from abdominal CT dated 04/18/2018. Findings: The 6 mm density on the previous examination corresponds to a 6 mm non solid density (image 53) along the anterior right lower lobe and is otherwise nonspecific. A 3 mm noncalcified nodule is also identified along the periphery of the right upper lobe (image 31). Trace left basilar and lingular fibroatelectatic changes are noted along with very minimal scattered scarring. No consolidation, effusion, or pneumothorax. Tracheobronchial tree is patent. No significant axillary, hilar, or mediastinal adenopathy. Mediastinum demonstrates normal thoracic aorta and pulmonary vasculature along with atherosclerotic changes to the coronary arteries. No cardiomegaly or per icardial effusion. Musculoskeletal structures are intact and without focal osseous abnormality. 12 mm hypodense lesion in the left thyroid lobe is nonspecific but may warrant thyroid ultrasound follow-up. Limited upper abdomen demonstrates normal bilateral adrenal glands along with cholelithiasis. Impression: 1. The 6 mm density identified on previous abdominal CT corresponds to a 6 mm non solid density and is likely chronic. A 3 mm noncalcified nodules identified in the periphery of the right upper lobe. Consider reevaluation in 6-9 months. 2. Minimal scattered chronic interstitial changes without further acute mediastinal or pleuroparenchymal process. 3. Atherosclerotic changes to the coronary arteries. 4. Cholelithiasis. 5. 12 mm hypodense lesion in the left thyroid lobe may warrant ultrasound follow-up. Electronically Signed by MR LUMBAR SPINE WITHOUT CONTRAST: HISTORY: Back and right leg pain. Decreased signal intensity on T2-weighted images is present in the L2-3 through L5-S1 intervertebral discs. The discs are decreased in height. These findings are consistent with disc degeneration. A diffuse disc bulge is present at the L1-2 level. There is minimal compression of the thecal sac. There is hypertrophy of the ligamenta flava and posterior articulating facets. L1 nerves exit the neural foramina without compression. A diffuse disc bulge is present at the L2-3 level. There is minimal compression of the thecal sac. There is hypertrophy of the ligamenta flava and posterior articulating facets. The L2 nerves exit the neural foramina without compression. A diffuse disc bulge is present at the L3-4 level. There is hypertrophy of the ligamenta flava and posterior articulating facets. These findings produce mild central canal stenosis. There is compression of the left L3 nerve in the neural foramen. The right L3 nerve exits the neural foramen without compression. A diffuse disc bulge and mild sized right paracentral disc extrusion are present at the L4-5 level. there is inferior migration of disc material. There is hypertrophy of the ligamenta flava and posterior articulating facets. These findings produce moderate central canal stenosis. There is compression of the right L5 nerve in the right L5 lateral recess. The L4 nerves exit the neural foramina without compression. A diffuse disc bulge is present at the L5-S1 level. This abuts the thecal sac. There are 3 mm of retrolisthesis of L5 on S1. There is hypertrophy of the posterior articulating facets. There is compression of the right L5 nerve in the neural foramen. The left L5 nerve exits the neural foramen without compression. A right laminectomy defect is present. Scar tissue is present in the right lateral aspect of the spinal canal. The scar tissue involves the right S1 nerve. The conus medullaris is normal in appearance terminating at the level of the T12-L1 intervertebral discs . Increased signal intensity on T2-weighted images is present in the end plates of the L3-L4 vertebral bodies. This represents degenerative changes. IMPRESSION: 1. Diffuse disc bulges at the L1-2 and L2-3 levels with minimal thecal sac compression. 2. Mild central canal stenosis at the L3-4 level secondary to disc bulge, ligamentous, and facet hypertrophy. There is compression of the left L3 nerve in the neural foramen. 3. Moderate central stenosis at the L4-5 level secondary to disc bulge, disc extrusion, ligamentous and facet hypertrophy. There is compression of the right L5 nerve in the right L5 lateral recess. 4. Diffuse disc bulge at the L5-S1 level. This abuts the thecal sac. There is compression of the right L5 nerve in the neural foramen. A right laminectomy defect is present. Scar tissue involves the right S1 nerve. Electronically Signed by Michael Moncada MD 04/18/2018 04:32 P DD: Michael Moncada MD 04/18/18 1330 DT: VERNON 04/18/18 1556 DS: DANIELLE 04/18/18 1632 04/18/[address] abdomen and pelvis without contrast: History: Right-sided back pain. Flank pain. No comparison study. Findings: Preliminary digital mud logger radiograph demonstrates a large rim calcification in the right upper quadrant. Bowel gas pattern is normal. On axial images at the lung bases, there is a nodular opacity at the right lower lobe which is incompletely evaluated 6 mm in greatest diameter visible on the uppermost 3 mm slice in the examination. There is linear fibrosis in the lingula. Lung bases are otherwise clear. The liver and spleen are normal in size, homogeneous in texture. There is a small accessory splenule. There is a small sliding hiatal hernia. A large calcified gallstone is seen in the lumen of the gallbladder. Gallbladder wall is not visibly thickened. Normal adrenal glands are seen bilaterally. No pancreatic abnormality is observed. The kidneys appear morphologically intact. No hydronephrosis or intrarenal calculus is seen. There is a dextroconvex scoliotic curve. Normal appendix is seen retrocecal in position. Small and large intestinal bowel loops are unremarkable. There is a small cyst in the right adnexa consistent with an ovarian cyst. This measures 2.7 cm in diameter. No uterine or left adnexal abnormality is seen. Urinary bladder is unremarkable. There is no evidence of diverticulosis or diverticulitis. No abdominal wall defect is seen. There is no evidence of free air or abnormal fluid collection. Bone window settings show no bony destructive lesion Impression: Cholelithiasis with a large densely calcified gallstone in the gallbladder lumen. Small sliding-type hiatal hernia. Normal appendix. No urinary calculus or hydronephrosis seen. Also noted is a 6 mm nodule in the right lower lobe at the upper most slice in the CT acquisition. This is incompletely seen. Consider chest CT study. Electronically Signed by Mukul Bhatia MD 04/18/2018 11:27 A DD: Mukul Bhatia MD 04/18/18 0900 DT: NYDIA 04/18/18 0916 DS: JOLENE 04/18/18 1127 04/18/18 1127 Pelvis right hip: Three views. History: Pain. Findings: AP view of the pelvis and AP and frog-leg views of the right hip are presented. Femoral heads are smooth and rounded and hip joint spaces are preserved. No hip fracture or pelvic fracture is seen. No sacral fractures noted. Visualized bowel gas pattern is unremarkable. Impression: No acute bony abnormality. Electronically Signed by Mukul Bhatia MD 04/18/2018 02:05 P DD: Mukul Bhatia MD 04/18/18 1404 DT: Meri 04/18/18 1405 DS: JOLENE 04/18/18 1405 04/18/18 1405 ASSESSMENT AND PLAN: The patient is a 68-year-old white female who presents to the hospital for evaluation of worsening low back pain. The history is provided by herself and she is a good historian. She states back to 1986 she had an L5 disc herniation for which she underwent surgical treatment. She does not have chronic low back pain. Also, she states she is receiving physical therapy with a physical therapist regularly. She states she was fine until Sunday when she woke up, she says she felt a little bit of pain in her low back which was mild and she was still able to be functioning normally. Prior to that she denies any injury or fall. However, in the next couple of days, her pain was getting worse gradually and she was trying to see her physical therapist but did not get an appointment yet. Today, she stated her pain is up to a 10/10 pain. She was trying to take nonsteroidal antiinflammatory drugs (NSAIDs) which did not help her. Also, she states sometimes the pain radiates to her right buttock and right lower extremity and she feels some numbness in the right side. She does not have any difficulty urinating or with bowel movements. After she came to the emergency room (ER), she was given IV morphine. After that, her pain has been getting better. She underwent x-ray, CT scan which was not significan t. Due to worsening pain, she had a lumbar spine MRI done in the ER but formal report is pending at this point in time. Initially, the ER was planning to discharge her home. However, she has severe pain and not able to ambulate, so medicine service was called for admission. Intractable Back pain due to Diffuse disc bulges at the L1-2 and L2-3 levels with minimal thecal sac compression. Mild central canal stenosis at the L3-4 level secondary to disc bulge, ligamentous, and facet hypertrophy. There is compression of the left L3 nerve in the neural foramen. Moderate central stenosis at the L4-5 level secondary to disc bulge, disc extrusion, ligamentous and facet hypertrophy. There is compression of the right L5 nerve in the right L5 lateral recess. Diffuse disc bulge at the L5-S1 level. This abuts the thecal sac. There is compression of the right L5 nerve in the neural foramen. A right laminectomy defect is present. Scar tissue involves the right S1 nerve. Pt has been given prn po opioids, with no relief. Per Orthopedic surgical consultation, pain management has been consulted for epidural injections and physical therapy/ARU screen. Pt did not have signs and symptoms of myelopathy at this time. Per pain management recommendations: "pain clinic on Sunday for lumbar epidural steroid. I would suggest the addition of gabapentin 100 mg three times a day for lumbar radicular symptoms of the right leg. I would recommend using a muscle relaxant such as Soma 350 mg three times a day. Continue her current pain medications as needed for severe pain episodes. She will be holding the heparin dose on April 21 after her last dose. She is to be brought over by stretcher at 2:00 p.m. on April 22, for L4-5 lumbar epidural steroid injection (LESI). She is to be n.p.o. after the morning breakfast on April 22. Clear fluids stopped at 12 noon on April 22." nodular opacity at the right lower lobe which is incompletely evaluated 6 mm in greatest diameter was found on CT abd/pelvis 04/18/18. 04/19/18 Ct chest with iv contrast reviewed.Outpt surveillance with repeat CT chest in 6 months to be arranged by her primary care physician. Pt denies any tobacco use. Cholelithiasis with a large densely calcified gallstone in the gallbladder lumen has been found incidentally on CT abd/pelvis 04/18/18. She had no complaints of biliary colic, jaundice, abdominal pain, nausea, or vomiting. no fever or chills. if patient becomes symptomatic,may need to monitor bilirubin levels and surgical consultation for outpt laparoscopic cholecystectomy. Small sliding-type hiatal hernia. Pt does not complain of GERD symptoms. no need for further workup. She denies any hematemesis, dysphagia, or wt loss. HTN, uncontrolled due to back pain. continued on home meds, and added norvasc qhs with holding parameters. hyperlipidemia. chronic, resume home meds. Atherosclerotic changes to the coronary arteries. optimize lipid and bp meds 12 mm hypodense lesion in the left thyroid lobe thyroid ultrasound, check thyroid function tests L5-S1 discectomy 1987 defer to ortho for surgical recommendations pain mgt for poain control History of breast reduction and tubal ligation. DVT prophylaxis: compression stockings Diet: DASH Code status: full code VS, I&O, 24H, Lj Vital Signs/I&O Vital Signs Date Time Temp Pulse Resp B/P (MAP) Pulse Ox O2 Delivery O2 Flow Rate FiO2 04/20/18 08:57 20 04/20/18 06:00 98.9 60 149/77 (101) 96 Room Air I&O- Last 24 Hours up to 6 AM 04/20/18 06:00 Intake Total 720 ml Output Total 900 ml Balance -180 ml Laboratory Data 24H LABS Laboratory Tests 2 04/20/18 06:49: Immature Granulocyte % (Auto) 0.7, White Blood Count 8.9, Red Blood Count 4.74, Hemoglobin 14.3, Hematocrit 42.3, Mean Corpuscular Volume 89.2, Mean Corpuscular Hemoglobin 30.2, Mean Corpuscular Hemoglobin Concent 33.8, Red Cell Distribution Width 11.9, Platelet Count 305, Neutrophils (%) (Auto) 59.2, Lymphocytes (%) (Auto) 32.3, Monocytes (%) (Auto) 7.3H, Eosinophils (%) (Auto) 0.2, Basophils (%) (Auto) 0.3, Neutrophils # (Auto) 5.3, Lymphocytes # (Auto) 2.9, Monocytes # (Auto) 0.7, Eosinophils # (Auto) 0.0, Basophils # (Auto) 0.0, Nucleated Red Blood Cells % (auto) 0.0, Anion Gap 8, Glomerular Filtration Rate > 60.0, Calcium Level 9.3, Triglycerides Level 136, LDL Cholesterol 83, Total Cholesterol 176, Non-HDL Cholesterol (LDL + VLDL) 110, Total HDL Cholesterol 66, Cholesterol/HDL Ratio 2.666 CBC/BMP Laboratory Tests 04/20/18 06:49 Red Blood Count 4.74, Mean Corpuscular Volume 89.2, Mean Corpuscular Hemoglobin 30.2, Mean Corpuscular Hemoglobin Concent 33.8, Red Cell Distribution Width 11.9, Neutrophils (%) (Auto) 59.2, Lymphocytes (%) (Auto) 32.3, Monocytes (%) (Auto) 7.3 H, Eosinophils (%) (Auto) 0.2, Basophils (%) (Auto) 0.3, Neutrophils # (Auto) 5.3, Lymphocytes # (Auto) 2.9, Monocytes # (Auto) 0.7, Eosinophils # (Auto) 0.0, Basophils # (Auto) 0.0 Microbiology Microbiology 04/18/18 Urine Culture - Final, Complete LA ESPARZA MD Apr 20, 2018 09:29
[2018-04-20] MEDS ORDERED: MORPHINE 4 MG/ML 1ML VIAL/SYRINGE (J2270) IV ONE (11:00)
[2018-04-20 14:00] VITALS: BP 139/74
[2018-04-20] MEDS: ATORVASTATIN 10 MG TAB PO SCH (21:46)
[2018-04-20] MEDS: METOPROLOL SUCC (TopROL XL) 50MG **XL** TAB PO SCH (21:46)
[2018-04-20 22:00] VITALS: BP 155/73
[2018-04-21] MEDS: MORPHINE 4 MG/ML 1ML VIAL/SYRINGE (J2270) IV PRN ×5 (01:43→21:39)
[2018-04-21] MEDS: PERCOCET 5MG/325MG TAB PO PRN ×5 (02:50→22:46)
[2018-04-21 06:00] VITALS: BP 132/71
[2018-04-21] MEDS: HEPARIN SOD (PORCINE) 5000 UNITS/ML VIAL SC SCH ×4 (06:00→21:39)
[2018-04-21] MEDS: GABAPENTIN 100 MG CAP PO SCH ×3 (08:19→21:37)
[2018-04-21] MEDS: methylPREDNISolone 4 MG TAB PO SCH ×2 (08:19→21:37)
[2018-04-21] MEDS: DOCUSATE SODIUM 100 MG CAP PO SCH ×2 (08:19→21:37)
[2018-04-21] MEDS: PANTOPRAZOLE 40MG TAB (PROTONIX) PO SCH (08:19)
[2018-04-21] MEDS: CARISOPRODOL 350 MG TAB PO SCH ×3 (08:22→21:37)
[2018-04-21 14:00] VITALS: BP 146/72
--- NOTE | 2018-04-21 19:27 | IPNPDOC ---
Date Seen The patient was seen on 04/21/18. Progress Note SUBJECTIVE: Pt feels some relief with new meds given by pain mgt,but increased sleepiness. She is worried as her cannot care for her at home. He has his own medical problems which she oversees. painis improved with current meds, but worse whenshe attempts to move. plans are for epidural sunday at 2pm. npo after 12noon on sunday. OBJECTIVE PHYSICAL EXAMINATION: VITAL SIGNS: Please see below. GENERAL: She is awake, alert, oriented times three. She is in acute distress. HEENT: Atraumatic. Pupils equal, round, reactive to light. Ears, nose, and throat normal. No jaundice. Extraocular muscles intact. Mouth: Mucosa not dry. NECK: No jugular venous distention (JVD), no bruits. LUNGS: Clear, no wheezing, no crackles. HEART: S1, S2, regular, no murmur. ABDOMEN: Soft, bowel sounds positive, nontender. LOWER EXTREMITIES: No edema in bilateral lower extremities. NEUROLOGICAL: Focal, and regarding her low back pain she has severe tenderness in her right buttock area and also any movement of the right lower extremity makes the pain worse. SKIN: No rash. PSYCHOLOGICAL: No acute psychosis. DIAGNOSTIC AND LABORATORIES: ON HOSPITAL ADMISSION CBC and differential: WBC 6.8, hemoglobin and hematocrit 14.9/42, platelets 291. Sodium 138, potassium 3.7, chloride 104, bicarbonate 21, BUN 15, creatinine 0.7, glucose 130. TODAY'S LABS: REVIEWED, PLS SEE BELOW IMAGING STUDIES: Clinical: Right lower lobe nodule. Technique: Axial contrast enhanced images from the thoracic inlet to the upper abdomen with coronal and sagittal re-formations using 100 ml Isovue 370 intravenous contrast material. Comparison: Lung base images from abdominal CT dated 04/18/2018. Findings: The 6 mm density on the previous examination corresponds to a 6 mm non solid density (image 53) along the anterior right lower lobe and is otherwise nonspecific. A 3 mm noncalcified nodule is also identified along the periphery of the right upper lobe (image 31). Trace left basilar and lingular fibroatelectatic changes are noted along with very minimal scattered scarring. No consolidation, effusion, or pneumothorax. Tracheobronchial tree is patent. No significant axillary, hilar, or mediastinal adenopathy. Mediastinum demonstrates normal thoracic aorta and pulmonary vasculature along with atherosclerotic changes to the coronary arteries. No cardiomegaly or pericardial effusion. Musculoskeletal structures are intact and without focal osseous abnormality. 12 mm hypodense lesion in the left thyroid lobe is nonspecific but may warrant thyroid ultrasound follow-up. Limited upper abdomen demonstrates normal bilateral adrenal glands along with cholelithiasis. Impression: 1. The 6 mm density identified on previous abdominal CT corresponds to a 6 mm non solid density and is likely chronic. A 3 mm noncalcified nodules identified in the periphery of the right upper lobe. Consider reevaluation in 6-9 months. 2. Minimal scattered chronic interstitial changes without further acute mediastinal or pleuroparenchymal process. 3. Atherosclerotic changes to the coronary arteries. 4. Cholelithiasis. 5. 12 mm hypodense lesion in the left thyroid lobe may warrant ultrasound follow-up. Electronically Signed by MR LUMBAR SPINE WITHOUT CONTRAST: HISTORY: Back and right leg pain. Decreased signal intensity on T2-weighted images is present in the L2-3 through L5-S1 intervertebral discs. The discs are decreased in height. These findings are consistent with disc degeneration. A diffuse disc bulge is present at the L1-2 level. There is minimal compression of the thecal sac. There is hypertrophy of the ligamenta flava and posterior articulating facets. L1 nerves exit the neural foramina without compression. A diffuse disc bulge is present at the L2-3 level. There is minimal compression of the thecal sac. There is hypertrophy of the ligamenta flava and posterior articulating facets. The L2 nerves exit the neural foramina without compression. A diffuse disc bulge is present at the L3-4 level. There is hypertrophy of the ligamenta flava and posterior articulating facets. These findings produce mild central canal stenosis. There is compression of the left L3 nerve in the neural foramen. The right L3 nerve exits the neural foramen without compression. A diffuse disc bulge and mild sized right paracentral disc extrusion are present at the L4-5 level. there is inferior migration of disc material. There is hypertrophy of the ligamenta flava and posterior articulating facets. These findings produce moderate central canal stenosis. There is compression of the right L5 nerve in the right L5 lateral recess. The L4 nerves exit the neural foramina without compression. A diffuse disc bulge is present at the L5-S1 level. This abuts the thecal sac. There are 3 mm of retrolisthesis of L5 on S1. There is hypertrophy of the posterior articulating facets. There is compression of the right L5 nerve in the neural foramen. The left L5 nerve exits the neural foramen without compression. A right laminectomy defect is present. Scar tissue is present in the right lateral aspect of the spinal canal. The scar tissue involves the right S1 nerve. The conus medullaris is normal in appearance terminating at the level of the T12-L1 intervertebral discs . Increased signal intensity on T2-weighted images is present in the end plates of the L3-L4 vertebral bodies. This represents degenerative changes. IMPRESSION: 1. Diffuse disc bulges at the L1-2 and L2-3 levels with minimal thecal sac compression. 2. Mild central canal stenosis at the L3-4 level secondary to disc bulge, ligamentous, and facet hypertrophy. There is compression of the left L3 nerve in the neural foramen. 3. Moderate central stenosis at the L4-5 level secondary to disc bulge, disc extrusion, ligamentous and facet hypertrophy. There is compression of the right L5 nerve in the right L5 lateral recess. 4. Diffuse disc bulge at the L5-S1 level. This abuts the thecal sac. There is compression of the right L5 nerve in the neural foramen. A right laminectomy defect is present. Scar tissue involves the right S1 nerve. Electronically Signed by Michael Moncada MD 04/18/2018 04:32 P DD: Michael Moncada MD 04/18/18 1330 DT: [facility] 04/18/18 1556 DS: DANIELLE 04/18/18 1632 04/18/[address] abdomen and pelvis without contrast: History: Right-sided back pain. Flank pain. No comparison study. Findings: Preliminary digital color grinder radiograph demonstrates a large rim calcification in the right upper quadrant. Bowel gas pattern is normal. On axial images at the lung bases, there is a nodular opacity at the right lower lobe which is incompletely evaluated 6 mm in greatest diameter visible on the uppermost 3 mm slice in the examination. There is linear fibrosis in the lingula. Lung bases are otherwise clear. The liver and spleen are normal in size, homogeneous in texture. There is a small accessory splenule. There is a small sliding hiatal hernia. A large calcified gallstone is seen in the lumen of the gallbladder. Gallbladder wall is not visibly thickened. Normal adrenal glands are seen bilaterally. No pancreatic abnormality is observed. The kidneys appear morphologically intact. No hydronephrosis or intrarenal calculus is seen. There is a dextroconvex scoliotic curve. Normal appendix is seen retrocecal in position. Small and large intestinal bowel loops are unremarkable. There is a small cyst in the right adnexa consistent with an ovarian cyst. This measures 2.7 cm in diameter. No uterine or left adnexal abnormality is seen. Urinary bladder is unremarkable. There is no evidence of diverticulosis or diverticulitis. No abdominal wall defect is seen. There is no evidence of free air or abnormal fluid collection. Bone window settings show no bony destructive lesion Impression: Cholelithiasis with a large densely calcified gallstone in the gallbladder lumen. Small sliding-type hiatal hernia. Normal appendix. No urinary calculus or hydronephrosis seen. Also noted is a 6 mm nodule in the right lower lobe at the upper most slice in the CT acquisition. This is incompletely seen. Consider chest CT study. Electronically Signed by Mukul Bhatia MD 04/18/2018 11:27 A DD: Mukul Bhatia MD 04/18/18 0900 DT: [facility] 04/18/18 0916 DS: JOLENE 04/18/18 1127 04/18/18 1127 Pelvis right hip: Three views. History: Pain. Findings: AP view of the pelvis and AP and frog-leg views of the right hip are presented. Femoral heads are smooth and rounded and hip joint spaces are preserved. No hip fracture or pelvic fracture is seen. No sacral fractures noted. Visualized bowel gas pattern is unremarkable. Impression: No acute bony abnormality. Electronically Signed by Mukul Bhatia MD 04/18/2018 02:05 P DD: Mukul Bhatia MD 04/18/18 1404 1405 DS: JOLENE 04/18/18 1405 04/18/18 1405 ASSESSMENT AND PLAN: The patient is a 68-year-old white female who presents to the hospital for evaluation of worsening low back pain. The history is provided by herself and she is a good historian. She states back to 1986 she had an L5 disc herniation for which she underwent surgical treatment. She does not have chronic low back pain. Also, she states she is receiving physical therapy with a physical therapist regularly. She states she was fine until Sunday when she woke up, she says she felt a little bit of pain in her low back which was mild and she was still able to be functioning normally. Prior to that she denies any injury or fall. However, in the next couple of days, her pain was getting worse gradually and she was trying to see her physical therapist but did not get an appointment yet. Today, she stated her pain is up to a 10/10 pain. She was trying to take nonsteroidal antiinflammatory drugs (NSAIDs) which did not help her. Also, she states sometimes the pain radiates to her right buttock and right lower extremity and she feels some numbness in the right side. She does not have any difficulty urinating or with bowel movements. After she came to the emergency room (ER), she was given IV morphine. After that, her pain has been getting better. She underwent x-ray, CT scan which was not significant. Due to worsening pain, she had a lumbar spine MRI done in the ER but formal report is pending at this point in time. Initially, the ER was planning to discharge her home. However, she has severe pain and not able to ambulate, so medicine service was called for admission. Intractable Back pain due to Diffuse disc bulges at the L1-2 and L2-3 levels with minimal thecal sac compression. Mild central canal stenosis at the L3-4 level secondary to disc bulge, ligamentous, and facet hypertrophy. There is compression of the left L3 nerve in the neural foramen. Moderate central stenosis at the L4-5 level secondary to disc bulge, disc extrusion, ligamentous and facet hypertrophy. There is compression of the right L5 nerve in the right L5 lateral recess. Diffuse disc bulge at the L5-S1 level. This abuts the thecal sac. There is compression of the right L5 nerve in the neural foramen. A right laminectomy defect is present. Scar tissue involves the right S1 nerve. Pt has been given prn po opioids, with no relief. Per Orthopedic surgical consultation, pain management has been consulted for epidural injections and physical therapy/ARU screen. Pt did not have signs and symptoms of myelopathy at this time. Per pain management recommendations: "pain clinic on Sunday for lumbar epidural steroid. I would suggest the addition of gabapentin 100 mg three times a day for lumbar radicular symptoms of the right leg. I would recommend using a muscle relaxant such as Soma 350 mg three times a day. Continue her current pain medications as needed for severe pain episodes. She will be holding the heparin dose on April 21 after her last dose. She is to be brought over by stretcher at 2:00 p.m. on April 22, for L4-5 lumbar epidural steroid injection (LESI). She is to be n.p.o. after the morning breakfast on April 22. Clear fluids stopped at 12 noon on April 22." nodular opacity at the right lower lobe which is incompletely evaluated 6 mm in greatest diameter was found on CT abd/pelvis 04/18/18. 04/19/18 Ct chest with iv contrast reviewed.Outpt surveillance with repeat CT chest in 6 months to be arranged by her primary care physician. Pt denies any tobacco use. Cholelithiasis with a large densely calcified gallstone in the gallbladder lumen has been found incidentally on CT abd/pelvis 04/18/18. She had no complaints of biliary colic, jaundice, abdominal pain, nausea, or vomiting. no fever or chills. if patient becomes symptomatic,may need to monitor bilirubin levels and surgical consultation for outpt laparoscopic cholecystectomy. Small sliding-type hiatal hernia. Pt does not complain of GERD symptoms. no need for further workup. She denies any hematemesis, dysphagia, or wt loss. HTN, uncontrolled due to back pain. continued on home meds, and added norvasc qhs with holding parameters. hyperlipidemia. chronic, resume home meds. Atherosclerotic changes to the coronary arteries. optimize lipid and bp meds 12 mm hypodense lesion in the left thyroid lobe thyroid ultrasound, check thyroid function tests L5-S1 discectomy 1986 defer to ortho for surgical recommendations pain mgt for poain control History of breast reduction and tubal ligation. DVT prophylaxis: compression stockings Diet: DASH Code status: full code VS, I&O, 24H, Fishbone Vital Signs/I&O Vital Signs Date Time Temp Pulse Resp B/P (MAP) Pulse Ox O2 Delivery O2 Flow Rate FiO2 04/21/18 18:10 20 04/21/18 14:00 98.0 63 146/72 (96) 95 Room Air I&O- Last 24 Hours up to 6 AM 04/21/18 06:00 Intake Total 1620 ml Output Total 1950 ml Balance -330 ml Laboratory Data Microbiology Microbiology 04/18/18 Urine Culture - Final, Complete LA ESPARZA MD Apr 21, 2018 19:27
[2018-04-21 20:00] VITALS: BP 106/55
[2018-04-21] MEDS: METOPROLOL SUCC (TopROL XL) 50MG **XL** TAB PO SCH (21:37)
[2018-04-21] MEDS: ATORVASTATIN 10 MG TAB PO SCH (21:38)
[2018-04-21 22:00] VITALS: BP 144/62
[2018-04-21 22:55] VITALS: BP 109/55
[2018-04-22] MEDS: MORPHINE 4 MG/ML 1ML VIAL/SYRINGE (J2270) IV PRN ×4 (01:26→21:28)
[2018-04-22] MEDS: PERCOCET 5MG/325MG TAB PO PRN ×2 (03:12→10:18)
[2018-04-22 06:00] VITALS: BP_SYST 135; BP_SYST 144; BP_DIAS 62; BP_DIAS 69
[2018-04-22] MEDS: DOCUSATE SODIUM 100 MG CAP PO SCH ×2 (10:17→21:25)
[2018-04-22] MEDS: GABAPENTIN 100 MG CAP PO SCH ×3 (10:18→21:26)
[2018-04-22] MEDS: methylPREDNISolone 4 MG TAB PO SCH ×2 (10:18→21:26)
[2018-04-22] MEDS: CARISOPRODOL 350 MG TAB PO SCH ×3 (10:19→21:26)
[2018-04-22] MEDS: PANTOPRAZOLE 40MG TAB (PROTONIX) PO SCH (10:21)
[2018-04-22] MEDS ORDERED: MORPHINE 4 MG/ML 1ML VIAL/SYRINGE (J2270) IV ONE (10:45)
--- NOTE | 2018-04-22 10:52 | IPNPDOC ---
Date Seen The patient was seen on 04/22/18. Progress Note SUBJECTIVE: Despite iv morphine and percocet, pt was in tears this AM. denies urinary or bowel incontinence or retentions. Pt is tolerating gabapentin and soma given by pain mgt,but increased sleepiness. She is worried as her cannot care for her at home. He has his own medical problems which she oversees. painis improved with current meds, but worse when she attempts to move. plans are for epidural 04/22/18at 2pm. npo after 12noon on sunday. OBJECTIVE PHYSICAL EXAMINATION: VITAL SIGNS: Please see below. GENERAL: She is awake, alert, oriented times three. She is in acute distress. HEENT: Atraumatic. Pupils equal, round, reactive to light. Ears, nose, and throat normal. No jaundice. Extraocular muscles intact. Mouth: Mucosa not dry. NECK: No jugular venous distention (JVD), no bruits. LUNGS: Clear, no wheezing, no crackles. HEART: S1, S2, regular, no murmur. ABDOMEN: Soft, bowel sounds positive, nontender. LOWER EXTREMITIES: No edema in bilateral lower extremities. NEUROLOGICAL: Focal, and regarding her low back pain she has severe tenderness in her right buttock area and also any movement of the right lower extremity makes the pain worse. SKIN: No rash. PSYCHOLOGICAL: No acute psychosis. DIAGNOSTIC AND LABORATORIES: ON HOSPITAL ADMISSION CBC and differential: WBC 6.8, hemoglobin and hematocrit 14.9/42, platelets 291. Sodium 138, potassium 3.7, chloride 104, bicarbonate 21, BUN 15, creatinine 0.7, glucose 130. TODAY'S LABS: REVIEWED, PLS SEE BELOW IMAGING STUDIES: Clinical: Right lower lobe nodule. Technique: Axial contrast enhanced images from the thoracic inlet to the upper abdomen with coronal and sagittal re-formations using 100 ml Isovue 370 intravenous contrast material. Comparison: Lung base images from abdominal CT dated 04/18/2018. Findings: The 6 mm density on the previous examination corresponds to a 6 mm non solid density (image 53) along the anterior right lower lobe and is otherwise nonspecific. A 3 mm noncalcified nodule is also identified along the periphery of the right upper lobe (image 31). Trace left basilar and lingular fibroatelectatic changes are noted along with very minimal scattered scarring. No consolidation, effusion, or pneumothorax. Tracheobronchial tree is patent. No significant axillary, hilar, or mediastinal adenopathy. Mediastinum demonstrates normal thoracic aorta and pulmonary vasculature along with atherosclerotic changes to the coronary arteries. No cardiomegaly or pericardial effusion. Musculoskeletal structures are intact and without focal osseous abnormality. 12 mm hypodense lesion in the left thyroid lobe is nonspecific but may warrant thyroid ultrasound follow-up. Limited upper abdomen demonstrates normal bilateral adrenal glands along with cholelithiasis. Impression: 1. The 6 mm density identified on previous abdominal CT corresponds to a 6 mm non solid density and is likely chronic. A 3 mm noncalcified nodules identified in the periphery of the right upper lobe. Consider reevaluation in 6-9 months. 2. Minimal scattered chronic interstitial changes without further acute mediastinal or pleuroparenchymal process. 3. Atherosclerotic changes to the coronary arteries. 4. Cholelithiasis. 5. 12 mm hypodense lesion in the left thyroid lobe may warrant ultrasound follow-up. Electronically Signed by MR LUMBAR SPINE WITHOUT CONTRAST: HISTORY: Back and right leg pain. Decreased signal intensity on T2-weighted images is present in the L2-3 through L5-S1 intervertebral discs. The discs are decreased in height. These findings are consistent with disc degeneration. A diffuse disc bulge is present at the L1-2 level. There is minimal compression of the thecal sac. There is hypertrophy of the ligamenta flava and posterior articulating facets. L1 nerves exit the neural foramina without compression. A diffuse disc bulge is present at the L2-3 level. There is minimal compression of the thecal sac. There is hypertrophy of the ligamenta flava and posterior articulating facets. The L2 nerves exit the neural foramina without compression. A diffuse disc bulge is present at the L3-4 level. There is hypertrophy of the ligamenta flava and posterior articulating facets. These findings produce mild central canal stenosis. There is compression of the left L3 nerve in the neural foramen. The right L3 nerve exits the neural foramen without compression. A diffuse disc bulge and mild sized right paracentral disc extrusion are present at the L4-5 level. there is inferior migration of disc material. There is hypertrophy of the ligamenta flava and posterior articulating facets. These findings produce moderate central canal stenosis. There is compression of the right L5 nerve in the right L5 lateral recess. The L4 nerves exit the neural foramina without compression. A diffuse disc bulge is present at the L5-S1 level. This abuts the thecal sac. There are 3 mm of retrolisthesis of L5 on S1. There is hypertrophy of the posterior articulating facets. There is compression of the right L5 nerve in the neural foramen. The left L5 nerve exits the neural foramen without compression. A right laminectomy defect is present. Scar tissue is present in the right lateral aspect of the spinal canal. The scar tissue involves the right S1 nerve. The conus medullaris is normal in appearance terminating at the level of the T12-L1 intervertebral discs . Increased signal intensity on T2-weighted images is present in the end plates of the L3-L4 vertebral bodies. This represents degenerative changes. IMPRESSION: 1. Diffuse disc bulges at the L1-2 and L2-3 levels with minimal thecal sac compression. 2. Mild central canal stenosis at the L3-4 level secondary to disc bulge, ligamentous, and facet hypertrophy. There is compression of the left L3 nerve in the neural foramen. 3. Moderate central stenosis at the L4-5 level secondary to disc bulge, disc extrusion, ligamentous and facet hypertrophy. There is compression of the right L5 nerve in the right L5 lateral recess. 4. Diffuse disc bulge at the L5-S1 level. This abuts the thecal sac. There is compression of the right L5 nerve in the neural foramen. A right laminectomy defect is present. Scar tissue involves the right S1 nerve. Electronically Signed by Michael Moncada MD 04/18/2018 04:32 P DD: Michael Moncada MD 04/18/18 1330 DT: [facility]ERNON 04/18/18 1556 DS: DANIELLE 04/18/18 1632 04/18/[address] abdomen and pelvis without contrast: History: Right-sided back pain. Flank pain. No comparison study. Findings: Preliminary digital belly dancer radiograph demonstrates a large rim calcification in the right upper quadrant. Bowel gas pattern is normal. On axial images at the lung bases, there is a nodular opacity at the right lower lobe which is incompletely evaluated 6 mm in greatest diameter visible on the uppermost 3 mm slice in the examination. There is linear fibrosis in the lingula. Lung bases are otherwise clear. The liver and spleen are normal in size, homogeneous in texture. There is a small accessory splenule. There is a small sliding hiatal hernia. A large calcified gallstone is seen in the lumen of the gallbladder. Gallbladder wall is not visibly thickened. Normal adrenal glands are seen bilaterally. No pancreatic abnormality is observed. The kidneys appear morphologically intact. No hydronephrosis or intrarenal calculus is seen. There is a dextroconvex scoliotic curve. Normal appendix is seen retrocecal in position. Small and large intestinal bowel loops are unremarkable. There is a small cyst in the right adnexa consistent with an ovarian cyst. This measures 2.7 cm in diameter. No uterine or left adnexal abnormality is seen. Urinary bladder is unremarkable. There is no evidence of diverticulosis or diverticulitis. No abdominal wall defect is seen. There is no evidence of free air or abnormal fluid collection. Bone window settings show no bony destructive lesion Impression: Cholelithiasis with a large densely calcified gallstone in the gallbladder lumen. Small sliding-type hiatal hernia. Normal appendix. No urinary calculus or hydronephrosis seen. Also noted is a 6 mm nodule in the right lower lobe at the upper most slice in the CT acquisition. This is incompletely seen. Consider chest CT study. Electronically Signed by Mukul Bhatia MD 04/18/2018 11:27 A DD: Mukul Bhatia MD 04/18/18 0900 DT: [facility] 04/18/18 0916 DS: JOLENE 04/18/18 1127 04/18/18 1127 Pelvis right hip: Three views. History: Pain. Findings: AP view of the pelvis and AP and frog-leg views of the right hip are presented. Femoral heads are smooth and rounded and hip joint spaces are preserved. No hip fracture or pelvic fracture is seen. No sacral fractures noted. Visualized bowel gas pattern is unremarkable. Impression: No acute bony abnormality. Electronically Signed by Mukul Bhatia MD 04/18/2018 02:05 P DD: Mukul Bhatia MD 04/18/18 1404 1405 DS: JOLENE 04/18/18 1405 04/18/18 1405 ASSESSMENT AND PLAN: The patient is a 68-year-old white female who presents to the hospital for evaluation of worsening low back pain. The history is provided by herself and she is a good historian. She states back to 1986 she had an L5 disc herniation for which she underwent surgical treatment. She does not have chronic low back pain. Also, she states she is receiving physical therapy with a physical therapist regularly. She states she was fine until Sunday when she woke up, she says she felt a little bit of pain in her low back which was mild and she was still able to be functioning normally. Prior to that she denies any injury or fall. However, in the next couple of days, her pain was getting worse gradually and she was trying to see her physical therapist but did not get an appointment yet. Today, she stated her pain is up to a 10/10 pain. She was trying to take nonsteroidal antiinflammatory drugs (NSAIDs) which did not help her. Also, she states sometimes the pain radiates to her right buttock and right lower extremity and she feels some numbness in the right side. She does not have any difficulty urinating or with bowel movements. After she came to the emergency room (ER), she was given IV morphine. After that, her pain has been getting better. She underwent x-ray, CT scan which was not signifi cant. Due to worsening pain, she had a lumbar spine MRI done in the ER but formal report is pending at this point in time. Initially, the ER was planning to discharge her home. However, she has severe pain and not able to ambulate, so medicine service was called for admission. Intractable Back pain due to Diffuse disc bulges at the L1-2 and L2-3 levels with minimal thecal sac compression. Mild central canal stenosis at the L3-4 level secondary to disc bulge, ligamentous, and facet hypertrophy. There is compression of the left L3 nerve in the neural foramen. Moderate central stenosis at the L4-5 level secondary to disc bulge, disc extrusion, ligamentous and facet hypertrophy. There is compression of the right L5 nerve in the right L5 lateral recess. Diffuse disc bulge at the L5-S1 level. This abuts the thecal sac. There is compression of the right L5 nerve in the neural foramen. A right laminectomy defect is present. Scar tissue involves the right S1 nerve. Pt has been given prn po opioids, with no relief. Per Orthopedic surgical consultation, pain management has been consulted for epidural injections and physical therapy/ARU screen. Pt did not have signs and symptoms of myelopathy at this time. Per pain management recommendations: "pain clinic on Sunday for lumbar epidural steroid. I would suggest the addition of gabapentin 100 mg three times a day for lumbar radicular symptoms of the right leg. I would recommend using a muscle relaxant such as Soma 350 mg three times a day. Continue her current pain medications as needed for severe pain episodes. She will be holding the heparin dose on April 21 after her last dose. She is to be brought over by stretcher at 2:00 p.m. on April 22, for L4-5 lumbar epidural steroid injection (LESI). She is to be n.p.o. after the morning breakfast on April 22. Clear fluids stopped at 12 noon on April 22." nodular opacity at the right lower lobe which is incompletely evaluated 6 mm in greatest diameter was found on CT abd/pelvis 04/18/18. 04/19/18 Ct chest with iv contrast reviewed.Outpt surveillance with repeat CT chest in 6 months to be arranged by her primary care physician. Pt denies any tobacco use. Cholelithiasis with a large densely calcified gallstone in the gallbladder lumen has been found incidentally on CT abd/pelvis 04/18/18. She had no complaints of biliary colic, jaundice, abdominal pain, nausea, or vomiting. no fever or chills. if patient becomes symptomatic,may need to monitor bilirubin levels and surgical consultation for outpt laparoscopic cholecystectomy. Small sliding-type hiatal hernia. Pt does not complain of GERD symptoms. no need for further workup. She denies any hematemesis, dysphagia, or wt loss. HTN, uncontrolled due to back pain. continued on home meds, and added norvasc qhs with holding parameters. hyperlipidemia. chronic, resume home meds. Atherosclerotic changes to the coronary arteries. optimize lipid and bp meds 12 mm hypodense lesion in the left thyroid lobe thyroid ultrasound, check thyroid function tests L5-S1 discectomy 1986 defer to ortho for surgical recommendations pain mgt for poain control History of breast reduction and tubal ligation. DVT prophylaxis: compression stockings Diet: DASH Code status: full code VS, I&O, 24H, Fishbone Vital Signs/I&O Vital Signs Date Time Temp Pulse Resp B/P (MAP) Pulse Ox O2 Delivery O2 Flow Rate FiO2 04/22/18 10:18 16 04/22/18 06:00 98.4 67 135/69 (91) 96 Room Air I&O- Last 24 Hours up to 6 AM 04/22/18 06:00 Intake Total 2280 ml Output Total 2850 ml Balance -570 ml Laboratory Data Microbiology Microbiology 04/18/18 Urine Culture - Final, Complete LA ESPARZA MD Apr 22, 2018 10:52
[2018-04-22] MEDS ORDERED: oxyCODONE 5MG TAB As Ordered ONE (16:15)
[2018-04-22] MEDS ORDERED: ONDANSETRON 4MG/2ML VIAL (J2405) As Ordered ONE (16:31)
[2018-04-22] MEDS ORDERED: ISOVUE-M 300 61% 15ML VIAL (Q9967) As Ordered ONE (16:38)
[2018-04-22] MEDS ORDERED: methylPREDNISolone SUSP 40 MG/ML (DEPO-medrol) VIAL (J1030) As Ordered ONE (16:38)
[2018-04-22] MEDS ORDERED: LIDOCAINE 1% SDV INJ 30 ML VIAL As Ordered ONE (16:38)
[2018-04-22] MEDS ORDERED: diazePAM 5 MG TAB As Ordered ONE (16:41)
[2018-04-22 18:30] VITALS: BP 166/98
[2018-04-22] MEDS: METOPROLOL SUCC (TopROL XL) 50MG **XL** TAB PO SCH (21:26)
[2018-04-22] MEDS: ATORVASTATIN 10 MG TAB PO SCH (21:26)
[2018-04-22 22:00] VITALS: BP 145/67
[2018-04-23] MEDS: MORPHINE 4 MG/ML 1ML VIAL/SYRINGE (J2270) IV PRN ×7 (02:10→20:48)
[2018-04-23 06:00] VITALS: BP 127/66
[2018-04-23 06:26] LABS: HEMATOCRIT 44.8 % (36.0-47.0); HEMOGLOBIN 15.1 g/dl (12.0-15.5); MEAN CORPUSCULAR HEMOGLOBIN 30.4 pg (27.0-33.0); MEAN CORPUSCULAR HGB CONC 33.7 g/dl (32.0-36.5); MEAN CORPUSCULAR VOLUME 90.1 fl (80.0-96.0); PLATELET COUNT, AUTOMATED 327 10^3/uL (150-450); RED BLOOD COUNT 4.97 10^6/uL (4.00-5.40); WHITE BLOOD COUNT 7.5 10^3/uL (4.0-10.0)
[2018-04-23 06:57] LABS: BLOOD UREA NITROGEN 20 MG/DL (7-18); CALCIUM LEVEL 9.5 MG/DL (8.8-10.2); CARBON DIOXIDE LEVEL 29 MEQ/L (21-32); CHLORIDE LEVEL 102 MEQ/L (98-107); CREATININE FOR GFR 0.93 MG/DL (0.55-1.30); FREE THYROXINE INDEX 3.2 % (1.3-4.8); GLOMERULAR FILTRATION RATE > 60.0 (>45); GLUCOSE, FASTING 113 MG/DL (70-100); POTASSIUM SERUM 4.9 MEQ/L (3.5-5.1); SODIUM LEVEL 137 MEQ/L (136-145); T UPTAKE 36 % (30-39); THYROID STIMULATING HORMONE 0.556 uIU/ML (0.358-3.740); THYROXINE (T4) 8.8 UG/DL (4.5-12.0)
[2018-04-23] MEDS: HEPARIN SOD (PORCINE) 5000 UNITS/ML VIAL SC SCH ×3 (06:58→20:44)
[2018-04-23 08:30] VITALS: BP 173/90
--- NOTE | 2018-04-23 08:45 | REP ---
Clinical: Right thyroid nodule. Technique: Real time santana scale and color evaluation using linear high frequency and curved array transducers. Findings: The thyroid gland is relatively normal in contour, and size demonstrating multiple nonspecific bilateral small cysts and nodules. The isthmus measures 2.0 mm in width. Right lobe measures 5.7 x 1.8 x 1.9 cm and includes a 19 x 12 x 16 mm solid mid pole nodule and 6 x 5 x 5 mm solid lower pole nodule along with 7 x 5 x 5 mm posterior mid pole cyst with small mural nodule. Left lobe measures 5.3 x 1.6 x 1.5 cm and includes 17 x 9 x 12 mm complex cystic nodule with small echogenic mural focus with 5 x 3 x 3 mm upper pole solid nodule and 7 x 4 x 5 mm upper pole partially cystic nodule. Impression: Multiple bilateral nodules and cysts. Findings are nonspecific and should be correlated with thyroid function tests. Biopsy/aspiration of the larger right-sided nodule and left-sided complex cystic nodule may be considered. Electronically Signed by Alexandru Amezcua MD 04/23/2018 08:37 A
--- NOTE | 2018-04-23 08:51 | IPN ---
DATE: 04/23/2018 Michelle is seen on 5 aponte under the hospitalist service. Admitted with intractable back pain. She had an epidural yesterday. Has not really noticed much change in her pain since then. PHYSICAL EXAMINATION: Afebrile. Vital signs stable. Lungs: Clear. Heart: Regular rate and rhythm. Abdomen: Soft, nontender. No masses. Normal strength in the arms and legs. Normal sensation in the legs. Thyroid nodule palpable. LABS: BMP unremarkable. TSH normal. CBC unremarkable. IMPRESSION: 1. Intractable low back pain status post epidural. She has an acute rehabilitation unit (ARU) screen pending. Continue physical therapy efforts. 2. Lung nodule. She had a CT of the chest that showed a right anterior lung nodule that was unchanged; 6 mm no change from previous CT; 3 mm right upper lobe nodule warrants repeat CT in 6-9 months. 3. Thyroid nodule. Ultrasound pending. This really should be dealt with as an outpatient. 4. Hyperlipidemia. control on current dose of atorvastatin. 5. Hypertension. Blood pressure is well controlled on current regimen.
[2018-04-23 09:00] VITALS: BP 173/90
--- NOTE | 2018-04-23 09:03 | REP ---
Partial lumbar spine series: Three views . History: Injection procedure for pain. 13 seconds of fluoroscopy time is reported. Findings: A sequence of three fluoroscopically obtained last image hold procedural spot radiographs of the lumbar spine document needle position and contrast injection associated with injection procedure. Electronically Signed by Mukul Bhatia MD 04/23/2018 08:53 A
[2018-04-23] MEDS: PERCOCET 5MG/325MG TAB PO PRN ×4 (09:48→20:47)
[2018-04-23] MEDS: CARISOPRODOL 350 MG TAB PO SCH ×3 (09:58→20:45)
[2018-04-23] MEDS: methylPREDNISolone 4 MG TAB PO SCH ×2 (10:16→20:45)
[2018-04-23] MEDS: DOCUSATE SODIUM 100 MG CAP PO SCH ×2 (10:16→20:44)
[2018-04-23] MEDS: PANTOPRAZOLE 40MG TAB (PROTONIX) PO SCH (10:17)
[2018-04-23] MEDS: GABAPENTIN 100 MG CAP PO SCH ×3 (10:17→20:45)
[2018-04-23] MEDS ORDERED: PILL CRUSHER/CUTTER 1 EACH XX PRN (10:30)
[2018-04-23 14:00] VITALS: BP 144/69
[2018-04-23 20:00] VITALS: BP 156/75
[2018-04-23] MEDS ORDERED: HEPARIN SOD (PORCINE) 5000 UNITS/ML VIAL As Ordered ONE (20:36)
[2018-04-23] MEDS: ATORVASTATIN 10 MG TAB PO SCH (20:44)
[2018-04-23] MEDS: METOPROLOL SUCC (TopROL XL) 50MG **XL** TAB PO SCH (20:45)
[2018-04-24] MEDS: HEPARIN SOD (PORCINE) 5000 UNITS/ML VIAL SC SCH ×3 (04:57→20:49)
[2018-04-24] MEDS: MORPHINE 4 MG/ML 1ML VIAL/SYRINGE (J2270) IV PRN ×3 (04:58→14:19)
[2018-04-24 06:00] VITALS: BP 136/72
[2018-04-24] MEDS: DOCUSATE SODIUM 100 MG CAP PO SCH ×2 (08:09→20:50)
[2018-04-24] MEDS: PANTOPRAZOLE 40MG TAB (PROTONIX) PO SCH (08:09)
[2018-04-24] MEDS: CARISOPRODOL 350 MG TAB PO SCH ×3 (08:09→20:51)
[2018-04-24] MEDS: GABAPENTIN 100 MG CAP PO SCH (08:09)
[2018-04-24] MEDS: methylPREDNISolone 4 MG TAB PO SCH ×2 (08:09→20:51)
[2018-04-24] MEDS: PERCOCET 5MG/325MG TAB PO PRN ×2 (08:10→14:18)
--- NOTE | 2018-04-24 13:41 | IPN ---
DATE: 04/24/2018 Michelle is seen in [address] [place] [address]. She was feeling pretty good this morning, woke up with no back pain, but then once she got out of bed the back pain recurred. Waiting to meet with the pain clinic later today. PHYSICAL EXAMINATION: Afebrile. 136/72. Lungs clear. Palpable left thyroid nodule. Heart regular rate and rhythm. Abdomen soft, nontender. Low back is tender to palpate. IMAGING: Thyroid ultrasound showed multiple bilateral nodules and cysts. She has a 1.9 x 1.2 x 1.6 cm solid mid pole nodule on the right. There is a 1.7 x 0.9 x 1.2 cm complex cystic nodule on the left, both of which will require outpatient attention. IMPRESSION: 1. Intractable low back pain. Continue efforts through physical therapy. She is seeing the pain clinic later today. Her epidural that she had 2 days ago really did not provide much relief. 2. Lung nodule. Followup CT scan in 6-9 months recommended. 3. Thyroid nodules. Outpatient evaluation and possible fine needle aspiration advised. 4. Hyperlipidemia. Good control on current dose of atorvastatin. 5. Hypertension. Well controlled on current regimen. Patient's primary care provider is Dr. Tay Ray MD in [place], [place], I left him a message at his office for him to call just to hand off the CT of the chest and thyroid findings for outpatient followup. He is out of the office today, but his department secretary said that she would provide the message.
[2018-04-24] MEDS: oxyCODONE 5MG TAB PO PRN (18:32)
[2018-04-24] MEDS: METOPROLOL SUCC (TopROL XL) 50MG **XL** TAB PO SCH (20:50)
[2018-04-24] MEDS: GABAPENTIN 300 MG CAP PO SCH (20:51)
[2018-04-24] MEDS: ATORVASTATIN 10 MG TAB PO SCH (20:51)
[2018-04-24 22:00] VITALS: BP 136/73
[2018-04-25] MEDS: oxyCODONE 5MG TAB PO PRN ×4 (00:34→23:54)
[2018-04-25 06:00] VITALS: BP 127/69
[2018-04-25] MEDS: HEPARIN SOD (PORCINE) 5000 UNITS/ML VIAL SC SCH ×3 (06:38→22:02)
[2018-04-25] MEDS: PANTOPRAZOLE 40MG TAB (PROTONIX) PO SCH (10:11)
[2018-04-25] MEDS: GABAPENTIN 300 MG CAP PO SCH ×2 (10:11→22:02)
[2018-04-25] MEDS: DOCUSATE SODIUM 100 MG CAP PO SCH ×2 (10:11→21:59)
[2018-04-25] MEDS: methylPREDNISolone 4 MG TAB PO SCH (10:12)
[2018-04-25] MEDS: CARISOPRODOL 350 MG TAB PO SCH ×3 (10:12→21:59)
--- NOTE | 2018-04-25 12:31 | IPN ---
DATE: 04/25/2018 Patient seen and examined. She is feeling a fair amount better. She had her epidural steroid about 3 days ago and she is getting physical therapy for her back. We talked again at length about her previous history with all of the laminectomy/diskectomy with Dr. Bergman many years ago and about how she has always had be somewhat careful with her back, she is feeling much more encouraged that she is progressing, has been up walking some etc. On exam she moves her feet and ankles well. She has no signs of any deep venous thrombosis (DVT) on exam today. I was careful not to do a straight leg raise for fear of just getting her back irritated because she is doing well. No tenderness about her hip. At this point her symptoms seemed to be centralizing, she is getting more the way of buttocks pain and much less in the way of radicular pain. My recommendation is continue with the same. She is going to followup with a pain clinic in a couple of weeks. I think we should also get her into see our spine surgeon, Dr. Baca, and she is very interested in seeing someone with his expertise in the event that this does not respond to conservative management. Certainly pending changes for the worse while she is here, please do not hesitate to contact us.
[2018-04-25] MEDS: GABAPENTIN 100 MG CAP PO SCH (13:22)
--- NOTE | 2018-04-25 13:59 | IPN ---
DATE: 04/25/2018 Michelle feels better. She has gotten out of bed. She was able to get to the bathroom and do some self care today, which is the most she has been able to do. She is constipated. PHYSICAL EXAMINATION: Afebrile. Vital signs stable. Lungs clear. Heart regular rhythm. Abdomen soft and nontender. Normal strength in the arms and legs. IMPRESSION: 1. Low back pain. She is improved. Continue physical therapy. She might be a candidate for acute rehabilitation unit (ARU). 2. Lung nodule. I spoke with Dr. Jose Ray in [place] yesterday at length about her thyroid nodule and her lung nodules and he will be following up on these as an outpatient. She can either go to ARU or hopefully home over the next few days depending on how she progresses with therapy.
[2018-04-25 14:00] VITALS: BP 135/67
[2018-04-25] MEDS: MIRALAX *UNIT DOSE* 17GM PACKET PO SCH ×2 (16:34→22:02)
[2018-04-25] MEDS: SENOKOT S TAB PO SCH ×2 (16:35→22:00)
[2018-04-25 22:00] VITALS: BP 136/74
[2018-04-25] MEDS: ATORVASTATIN 10 MG TAB PO SCH (22:01)
[2018-04-25] MEDS: METOPROLOL SUCC (TopROL XL) 50MG **XL** TAB PO SCH (22:01)
[2018-04-26] MEDS: oxyCODONE 5MG TAB PO PRN ×3 (05:41→20:46)
[2018-04-26] MEDS: HEPARIN SOD (PORCINE) 5000 UNITS/ML VIAL SC SCH ×3 (05:41→20:47)
[2018-04-26 06:00] VITALS: BP 134/71
[2018-04-26] MEDS: methylPREDNISolone 4 MG TAB PO SCH (09:51)
[2018-04-26] MEDS: GABAPENTIN 300 MG CAP PO SCH ×2 (09:51→20:46)
[2018-04-26] MEDS: PANTOPRAZOLE 40MG TAB (PROTONIX) PO SCH (09:51)
[2018-04-26] MEDS: MIRALAX *UNIT DOSE* 17GM PACKET PO SCH ×2 (09:52→20:46)
[2018-04-26] MEDS: CARISOPRODOL 350 MG TAB PO SCH ×3 (09:52→20:44)
[2018-04-26] MEDS: DOCUSATE SODIUM 100 MG CAP PO SCH ×2 (09:52→20:45)
[2018-04-26] MEDS: SENOKOT S TAB PO SCH ×2 (09:53→20:46)
[2018-04-26] MEDS: GABAPENTIN 100 MG CAP PO SCH (12:11)
--- NOTE | 2018-04-26 13:48 | IPN ---
DATE: 04/26/2018 Michelle is seen in [address]. She has been getting progressively better. She is doing more self care. She is out of bed more over the last day as well. PHYSICAL EXAMINATION: Afebrile. Vital signs stable. Lungs clear. Heart regular rate and rhythm. Abdomen soft, nontender. Normal strength in the arms and legs. PLAN: Per physical therapy. Hopefully she will be stable for discharge tomorrow.
[2018-04-26 14:00] VITALS: BP 154/75
[2018-04-26] MEDS: ATORVASTATIN 10 MG TAB PO SCH (20:44)
[2018-04-26] MEDS: METOPROLOL SUCC (TopROL XL) 50MG **XL** TAB PO SCH (20:45)
[2018-04-26 22:00] VITALS: BP 144/88
[2018-04-27] MEDS: HEPARIN SOD (PORCINE) 5000 UNITS/ML VIAL SC SCH ×3 (05:53→21:09)
[2018-04-27] MEDS: oxyCODONE 5MG TAB PO PRN ×3 (05:53→21:08)
[2018-04-27 06:00] VITALS: BP 129/78
[2018-04-27] MEDS: MIRALAX *UNIT DOSE* 17GM PACKET PO SCH ×2 (09:21→21:05)
[2018-04-27] MEDS: PANTOPRAZOLE 40MG TAB (PROTONIX) PO SCH (09:21)
[2018-04-27] MEDS: CARISOPRODOL 350 MG TAB PO SCH ×3 (09:21→21:07)
[2018-04-27] MEDS: SENOKOT S TAB PO SCH ×2 (09:21→21:05)
[2018-04-27] MEDS: GABAPENTIN 300 MG CAP PO SCH ×2 (09:22→21:05)
[2018-04-27] MEDS: DOCUSATE SODIUM 100 MG CAP PO SCH ×2 (09:22→21:05)
[2018-04-27] MEDS: methylPREDNISolone 4 MG TAB PO SCH (09:22)
[2018-04-27] MEDS: GABAPENTIN 100 MG CAP PO SCH (12:25)
--- NOTE | 2018-04-27 12:40 | IPN ---
DATE: 04/27/2018 Michelle has had a bit of setback. She says she tried to do a lot yesterday in anticipation of trying to go home, but now she feels more pain and does not feel that she is able to be discharged. She would like to go to a rehab unit if possible. PHYSICAL EXAM: Lungs: Clear. Heart: Regular rate and rhythm. Abdomen: Soft, nontender. Normal strength in both legs. IMPRESSION: Intractable back pain. PLAN: Sunday will get an acute rehabilitation unit (ARU) consult. Check some lab work tomorrow.
[2018-04-27 14:00] VITALS: BP 144/74
[2018-04-27] MEDS: ATORVASTATIN 10 MG TAB PO SCH (21:06)
[2018-04-27] MEDS: METOPROLOL SUCC (TopROL XL) 50MG **XL** TAB PO SCH (21:06)
[2018-04-27 22:00] VITALS: BP 123/70
[2018-04-28] MEDS: oxyCODONE 5MG TAB PO PRN ×3 (03:09→18:14)
[2018-04-28 06:00] VITALS: BP 115/58
[2018-04-28] MEDS: HEPARIN SOD (PORCINE) 5000 UNITS/ML VIAL SC SCH ×3 (06:12→21:52)
[2018-04-28 06:39] LABS: HEMATOCRIT 41.6 % (36.0-47.0); HEMOGLOBIN 13.9 g/dl (12.0-15.5); MEAN CORPUSCULAR HEMOGLOBIN 30.8 pg (27.0-33.0); MEAN CORPUSCULAR HGB CONC 33.4 g/dl (32.0-36.5); PLATELET COUNT, AUTOMATED 270 10^3/uL (150-450); RED BLOOD COUNT 4.52 10^6/uL (4.00-5.40); WHITE BLOOD COUNT 8.9 10^3/uL (4.0-10.0)
[2018-04-28 07:07] LABS: BLOOD UREA NITROGEN 24 MG/DL (7-18); CALCIUM LEVEL 8.9 MG/DL (8.8-10.2); CARBON DIOXIDE LEVEL 27 MEQ/L (21-32); CHLORIDE LEVEL 106 MEQ/L (98-107); CREATININE FOR GFR 0.79 MG/DL (0.55-1.30); GLOMERULAR FILTRATION RATE > 60.0 (>45); GLUCOSE, FASTING 95 MG/DL (70-100); POTASSIUM SERUM 4.3 MEQ/L (3.5-5.1); SODIUM LEVEL 139 MEQ/L (136-145)
[2018-04-28] MEDS: CARISOPRODOL 350 MG TAB PO SCH ×3 (10:03→21:53)
[2018-04-28] MEDS: MIRALAX *UNIT DOSE* 17GM PACKET PO SCH ×2 (10:03→21:52)
[2018-04-28] MEDS: SENOKOT S TAB PO SCH ×2 (10:03→21:53)
[2018-04-28] MEDS: DOCUSATE SODIUM 100 MG CAP PO SCH ×2 (10:03→21:53)
[2018-04-28] MEDS: GABAPENTIN 300 MG CAP PO SCH ×2 (10:03→21:53)
[2018-04-28] MEDS: PANTOPRAZOLE 40MG TAB (PROTONIX) PO SCH (10:03)
[2018-04-28] MEDS: GABAPENTIN 100 MG CAP PO SCH (12:28)
[2018-04-28 14:00] VITALS: BP 126/73
--- NOTE | 2018-04-28 17:04 | IPN ---
DATE: 04/28/2018 Michelle was out of bed on , but she felt that she needed to get back in bed. Her back pain is about the same as yesterday. She has no symptoms otherwise. PHYSICAL EXAMINATION: VITAL SIGNS: Stable. LUNGS: Clear. HEART: Regular rate and rhythm. ABDOMEN: Soft, nontender. LABORATORY DATA: Unremarkable. PLAN: Acute rehabilitation unit (ARU) evaluation tomorrow.
[2018-04-28] MEDS: ATORVASTATIN 10 MG TAB PO SCH (21:53)
[2018-04-28] MEDS: METOPROLOL SUCC (TopROL XL) 50MG **XL** TAB PO SCH (21:53)
[2018-04-28 22:00] VITALS: BP 130/77
[2018-04-29] MEDS: oxyCODONE 5MG TAB PO PRN ×3 (01:34→20:11)
[2018-04-29 06:00] VITALS: BP 134/75
[2018-04-29] MEDS: HEPARIN SOD (PORCINE) 5000 UNITS/ML VIAL SC SCH ×2 (06:57→14:50)
[2018-04-29] MEDS: CARISOPRODOL 350 MG TAB PO SCH ×3 (10:05→21:28)
[2018-04-29] MEDS: SENOKOT S TAB PO SCH ×2 (10:05→21:28)
[2018-04-29] MEDS: GABAPENTIN 300 MG CAP PO SCH ×2 (10:05→21:28)
[2018-04-29] MEDS: DOCUSATE SODIUM 100 MG CAP PO SCH ×2 (10:05→21:28)
[2018-04-29] MEDS: MIRALAX *UNIT DOSE* 17GM PACKET PO SCH ×2 (10:05→21:28)
[2018-04-29] MEDS: PANTOPRAZOLE 40MG TAB (PROTONIX) PO SCH (10:05)
[2018-04-29] MEDS ORDERED: FLEET ENEMA PR PRN (11:15)
[2018-04-29] MEDS ORDERED: MAGNESIUM CITRATE 300 ML BTL PO ONE (11:15)
--- NOTE | 2018-04-29 12:13 | IPN ---
DATE: 04/29/2018 Michelle does not feel able to go home. She has weakness in her right leg and right low back pain. She was cleared Sunday by physical and occupational therapy but seems to feel she got worse over the weekend. PHYSICAL EXAM: Afebrile. Vital signs stable, 134/75. Right lower leg has normal strength. There is pain in the leg when checking dorsi and plantar flexion at the ankle. This pain is more from the sciatic region. Low back seemed to palpate with some spasm. LABS: Complete blood count (CBC), basic metabolic panel (BMP) unremarkable. IMPRESSION: Intractable back pain. PLAN: At this point, she does not feel able to be discharged. Acute rehabilitation unit (ARU) evaluated and did not feel she was appropriate. I have put a call in to Lenora East at the pain clinic. I would like her to reassess again, see if another intervention might be beneficial. Dr. Venessa Pedroza will be assuming her care tomorrow.
[2018-04-29] MEDS: GABAPENTIN 100 MG CAP PO SCH (13:03)
[2018-04-29] MEDS: ATORVASTATIN 10 MG TAB PO SCH (21:28)
[2018-04-29] MEDS: METOPROLOL SUCC (TopROL XL) 50MG **XL** TAB PO SCH (21:29)
[2018-04-29 22:00] VITALS: BP 139/76
[2018-04-30] MEDS: oxyCODONE 5MG TAB PO PRN ×3 (02:15→21:56)
[2018-04-30 06:00] VITALS: BP 142/75
[2018-04-30] MEDS: CARISOPRODOL 350 MG TAB PO SCH ×3 (08:15→21:58)
[2018-04-30] MEDS: GABAPENTIN 300 MG CAP PO SCH ×2 (08:15→21:58)
[2018-04-30] MEDS: SENOKOT S TAB PO SCH ×2 (08:15→21:00)
[2018-04-30] MEDS: PANTOPRAZOLE 40MG TAB (PROTONIX) PO SCH (08:15)
[2018-04-30] MEDS: MIRALAX *UNIT DOSE* 17GM PACKET PO SCH ×2 (08:16→21:00)
[2018-04-30] MEDS: DOCUSATE SODIUM 100 MG CAP PO SCH ×2 (08:16→21:00)
--- NOTE | 2018-04-30 08:57 | CR ---
DATE OF CONSULTATION: 04/30/2018 CHIEF COMPLAINT: 1. Low back pain. 2. Right leg pain. REFERRING PHYSICIAN: Dr. Troy Rene HISTORY OF PRESENT ILLNESS: Michelle is an inpatient that was admitted on 04/18/2018 for intractable low back pain and right leg pain. History of lumbar surgery in the late 80s. Continues with complaints of right leg numbness and pain, especially with ambulation. She had a lumbar epidural steroid injection last week at our pain center. Reports that this helped with the intensity of right leg pain and low back pain. Continues to feel that she is unable to go home due to inability to ambulate without episodes of severe right leg pain. MRI imaging is showing disk protrusion and compression of the right L5 nerve in the right L5 lateral recess. Rating pain intensity as a 5/10 at rest and episodes of severe pain with ambulation in the right leg. ALLERGIES: ERYTHROMYCIN, STREPTOMYCIN. SOCIAL HISTORY: Lives with her , who is disabled. PHYSICAL EXAMINATION: Awake, alert, pleasant. No acute distress. Obvious distress with repositioning and getting in and out of bed. Vital signs: 99.3, 84, 16, BP 139/76, O2 sats 94%. Cardiac: S1, S2. Normal rate and rhythm. Respiratory: Lung sounds are clear. Respirations nonlabored. Neuromuscular: Slight weakness over right leg compared to left. Inspection of spine showed well-healed surgical scar at LS axis. Palpation - Tenderness over the right sacroiliac joint and lower lumbar facet region. Ambulation - Walks with assistance of a walker with standby only. Does show some distress with use of right leg. Neuro - Normal sensation to light touch of lower extremities. ASSESSMENT: Low back pain with right leg radiculopathy. PLAN: Discussed options for interventions at the pain center to include caudal epidural steroid injection. Potential risks were described. She is aware of the unpredictable nature and effectiveness of procedures such as this. She plans on being discharged the day after the epidural. She would like to seek surgical intervention if this is of no benefit once she is discharged. Nothing by mouth after 12 midnight tonight. To pain center at 08:30 a.m. on April 30 for caudal epidural steroid injection versus right sacroiliac joint steroid injection. Stop heparin dose tonight and restart post procedure as directed. May have her morning medicines with a sip of water.
[2018-04-30] MEDS ORDERED: diazePAM 5 MG TAB As Ordered ONE (09:59)
[2018-04-30] MEDS ORDERED: oxyCODONE 5MG TAB As Ordered ONE (09:59)
[2018-04-30] MEDS ORDERED: ISOVUE-M 300 61% 15ML VIAL (Q9967) As Ordered ONE (10:16)
[2018-04-30] MEDS ORDERED: BUPIVACAINE HCL 0.25% 30 ML VIAL As Ordered ONE (10:16)
[2018-04-30] MEDS ORDERED: LIDOCAINE 1% SDV INJ 30 ML VIAL As Ordered ONE (10:16)
[2018-04-30] MEDS ORDERED: TRIAMCINOLONE ACETONIDE SUSP 40 MG/ML VIAL (J3301) As Ordered ONE (10:16)
[2018-04-30] MEDS: GABAPENTIN 100 MG CAP PO SCH (12:05)
--- NOTE | 2018-04-30 12:07 | REP ---
SI JOINT SERIES: LIMITED SINGLE VIEW. HISTORY: SI joint injection for pain. Right SI joint block. 20 seconds of fluoroscopy time is reported. FINDINGS: A single fluoroscopically obtained spot radiographs of the right SI joint documents needle position and contrast injection associated with right SI joint injection procedure. Electronically Signed by Mukul Bhatia MD 04/30/2018 08:33 P
[2018-04-30 14:00] VITALS: BP 136/73
--- NOTE | 2018-04-30 21:19 | IPN ---
DATE: 04/30/2018 SUBJECTIVE: The patient tells me she is actually feeling better after epidural injection. She notices immediate improvement and is able to bear weight. She denies fevers, chills, chest pain, or shortness of breath. No bladder or bowel incontinence. No paresthesias. OBJECTIVE: VITAL SIGNS: Temperature 98.3, pulse 82, respiratory rate 16, blood pressure 142/75, oxygen saturation 95% on room air. GENERAL: She is a pleasant elderly female sitting in a chair. She does not appear to be in any acute distress. HEENT: Cranial nerves II-XII are grossly intact. She has moist mucous membranes. No elevation of central venous pressure (CVP). CARDIOVASCULAR EXAM: S1, S2, regular. RESPIRATORY EXAM: Quite clear. ABDOMINAL EXAM: Mildly obese. EXTREMITIES: No clubbing, cyanosis, or edema. LABORATORY STUDIES: WBC 8.9, hemoglobin 13.9, platelet count 270. Chemistry panel: Sodium 139, potassium 4.3, chloride 106, bicarbonate 27, BUN 24, creatinine 0.9. No new imaging. ASSESSMENT AND PLAN: This is a 68-year-old female with intractable low back pain. PROBLEMS: 1. Intractable low back pain with right leg radiculopathy. Pain management help is greatly appreciated. She is status post an epidural injection today. She appears to have tolerated the procedure quite well and it improved; however, will continue to work with occupational therapy. She has cleared physical therapy already. I suspect she may be able to be cleared as early as tomorrow. We will continue with gabapentin, oxycodone, Soma. She does appear to be improving today. I suspect she may be able to be discharged home as early as tomorrow. 2. Hypertension. Continue with Norvasc. The patient is also on metoprolol. 3. Gastroesophageal reflux disease. Continue with Protonix. 4. Dyslipidemia. Continue with Lipitor. DISPOSITION: Pending occupational therapy (OT) clearance, possibly home as early as tomorrow.
[2018-04-30] MEDS: ATORVASTATIN 10 MG TAB PO SCH (21:56)
[2018-04-30 21:58] VITALS: BP 141/76
[2018-04-30] MEDS: METOPROLOL SUCC (TopROL XL) 50MG **XL** TAB PO SCH (21:58)
[2018-04-30 22:00] VITALS: BP 141/76
[2018-05-01 06:00] VITALS: BP 119/72
[2018-05-01] MEDS: MIRALAX *UNIT DOSE* 17GM PACKET PO SCH (09:10)
[2018-05-01] MEDS: PANTOPRAZOLE 40MG TAB (PROTONIX) PO SCH (09:11)
[2018-05-01] MEDS: GABAPENTIN 300 MG CAP PO SCH (09:11)
[2018-05-01] MEDS: CARISOPRODOL 350 MG TAB PO SCH (09:11)
[2018-05-01] MEDS: DOCUSATE SODIUM 100 MG CAP PO SCH (09:11)
[2018-05-01] MEDS: SENOKOT S TAB PO SCH (09:11)
[2018-05-01] MEDS ORDERED: GABA-843 PO (11:00)
[2018-05-01] MEDS ORDERED: AMLO25TA PO (11:00)
[2018-05-01] MEDS ORDERED: OXYCO5TA PO (11:00)
[2018-05-01] MEDS ORDERED: GABA-1171 PO (11:00)
[2018-05-01] MEDS ORDERED: CARI1TAB7 PO (11:00)
[2018-05-01] MEDS ORDERED: Docusate Sod/Senna PO (11:00)
[2018-05-01] MEDS: GABAPENTIN 100 MG CAP PO SCH (12:20)
[2018-05-01] MEDS: oxyCODONE 5MG TAB PO PRN (12:22)
--- NOTE | 2018-05-01 21:41 | DSES ---
DATE OF ADMISSION: 04/18/2018 DATE OF DISCHARGE: 05/01/2018 DISCHARGE DIAGNOSES: 1. Hypertension. 2. Gastroesophageal reflux disease. 3. Dyslipidemia. 4. Pulmonary nodule. 5. Hypertension. HOSPITAL COURSE: The patient was admitted with back pain. He was seen by orthopedic surgery, who felt that her symptoms were radicular in nature, and based on her MRI findings they thought that she would benefit from pain management consultation. She had diffuse disc bulge at L1-3 with minimal thecal sac compression, mild central canal stenosis at L3-4, compression of the L3 nerve in the medial foramen. Moderate central canal stenosis at L4-5 secondary to disc bulge. Compression of the right L5 nerve in the right L5 lateral recess and compression of the L5 nerve in the neural foramen as well as scar tissue involving the right S1 nerve. During her stay her pain was difficult to control. She was seen by pain management twice. Following the second injection, pain was better controlled, and she was able to clear physical therapy (PT) and occupational therapy (OT). She had significant anxiety and hesitation about being discharged throughout her stay, but today she was agreeable and did demonstrate significant improvement. SUBJECTIVE: Today the patient denies any complaint and is eager to go home. OBJECTIVE: VITAL SIGNS: Temperature 99.3, pulse 51, respiratory rate 16, blood pressure (BP) 119/72, oxygen saturation 91% on room air. GENERAL: She is a pleasant, elderly female, lying in bed at a 30-degree angle. She does not appear to be in any acute distress. HEENT: Cranial nerves II-XII are grossly intact. She has moist mucous membranes. No elevation in central venous pressure (CVP). CARDIOVASCULAR: S1, S2, regular. RESPIRATORY EXAM: Clear. ABDOMEN: Benign. She has good range of motion in the lower extremities. LABORATORY STUDIES: WBC 8.9, hemoglobin 13.9, platelet count 270 from April 28. Sodium 139, potassium 4.3, chloride 106, bicarbonate 27, BUN 24, creatinine 0.7, also from April 28. Urine culture was negative. IMAGING: The patient had a CT scan of the abdomen and pelvis, which showed cholelithiasis, a small sliding hiatal hernia and a 6 mm nodule in the right lower lobe. She did have a CT scan of the chest subsequently, which revealed a 6 mm density, nonsolid, likely chronic, 3 mm noncalcified nodule identified in the periphery in the right upper lobe. Consider 6-9 month re-evaluation was recommended to the patient. A 12 mm hypodense lesion in the left thyroid, may warrant ultrasound and followup. The patient did have a thyroid ultrasound that revealed multiple bilateral nodules and cysts. Findings nonspecific. It should be correlated with thyroid function tests. Biopsy and aspiration of the larger right-sided nodule and left-sided complex cystic nodule may be considered. Patient did have thyroid tests completed, which were within normal limits. ASSESSMENT AND PLAN: This is a 68-year-old female with intractable back pain. 1. Intractable back pain, likely related to her MRI spinal findings. Pain management's help has been greatly appreciated as well as orthopedic surgery. At this time, her pain is better controlled. She has been cleared by physical therapy (PT)/occupational therapy (OT), who recommended that she be discharged home and followup with both pain clinic and orthopedic spine. She will be discharged on Soma 350 mg three times a day as needed for pain, gabapentin 300 mg twice a day and 100 mg daily, oxycodone 5 mg every 6 hours as needed for pain, as well as Advil PM as needed. 2. Pulmonary and thyroid nodules incidentally found during her stay. Recommended that she follows up with her primary care provider and consider repeat imaging, plus/minus thyroid fine-needle aspiration. 3. Hypertension, controlled with Norvasc and metoprolol. 4. Dyslipidemia. She is continued on Lipitor. DISPOSITION: The patient is being discharged home. She is close to her functional baseline. She is to followup with her primary care physician (PCP) in 7 days, orthopedic spine within 1 month, and pain clinic within 2 weeks. Activity is as tolerated. Diet as prior to admission. She is to return to the emergency room (ER) if symptoms worsen. DISCHARGE MEDICATIONS: - amlodipine 10 mg at bedtime - Soma 350 mg three times daily as needed for pain - docusate one tablet twice a day - gabapentin 300 mg twice a day and 100 mg daily - oxycodone 10 mg every 6 hours as needed for pain - Advil PM 200/38 at bedtime - atorvastatin 10 mg at bedtime - calcium/magnesium - zinc one tablet twice daily, 333/133/5 - turmeric 500 mg tablet as needed for joint stiffness as per the patient - metoprolol extended release 50 mg at bedtime Greater than 30 minutes spent organizing disposition.
== END 2018-05-01 12:20 | disposition home health service (06) | DRG 552 ==
LOC: EDBD 07:52 → M ED 07:52 → M ED INP 14:48 → M MS5PR 16:40
PROVIDERS: ADMIT Hospitalist; ATTEND Internal Medicine
PROC: 3E0U3NZ Introduction of Analgesics, Hypnotics, Sedatives into Joints, Percutaneous Approach (ICD-10-PCS; principal; 2018-04-30)
DX: M48.061 Spinal stenosis, lumbar region without neurogenic claudication (principal); I10 Essential (primary) hypertension; K21.9 Gastro-esophageal reflux disease without esophagitis; E78.5 Hyperlipidemia, unspecified; R91.1 Solitary pulmonary nodule; K44.9 Diaphragmatic hernia without obstruction or gangrene; K80.20 Calculus of gallbladder without cholecystitis without obstruction; Z79.899 Other long term (current) drug therapy; Z88.1 Allergy status to other antibiotic agents; E04.1 Nontoxic single thyroid nodule

== ENCOUNTER → 2018-05-06 | Outpatient (CLI) | payer OTHER, MEDICARE ==
[~2018-05-06] MED LIST: ADVI200T26 PO; ALEV220T26 PO; AMLO25TA PO; ATOR1TAB19 PO; CALCTAB8 PO; CARI1TAB7 PO; Docusate Sod/Senna PO; GABA-1171 PO; GABA-843 PO; HYDR-3713 PO; IBUP-1022 PO; METO1TAB7 PO; OXYCO5TA PO; TURM500T PO
--- NOTE | 2018-05-23 | ECWPNPC ---
PATIENT NAME: POONAM LIVE : 1950 GENDER: FEMALE VISIT DATE: 05/06/2018 DISCHARGE DATE: 05/06/18 1134 VISIT LOCKED DATE TIME: PHYSICIAN: PRADIP MARTIN MD RESOURCE: PRADIP MARTIN MD REASON FOR APPOINTMENT 1. POST [facility] PER DR Damon HISTORY OF PRESENT ILLNESS HISTORY OF PRESENT ILLNESS: PAIN THE PATIENT DESCRIBES THE PAIN... 68 YEAR OLD FEMALE PATIENT WITH A HISTORY OF CHRONIC LOW BACK PAIN. THE PATIENT DESCRIBES THE PAIN ACHING AND INTERMITTENT WITH A PAIN SCORE OF 2-8/10 DEPENDING ON PHYSICAL ACTIVITY. THE PATIENT SAYS THE PAIN STARTS IN HER LOW BACK AND RADIATES DOWN HER RIGHT LEG WITH SOME NUMBNESS. THE PATIENT HAS A HISTORY OF A BACK SURGERY MANY YEARS AGO. THE PATIENT RECEIVED A LUMBAR EPIDURAL STEROID INJECTION AN INPATIENT ON 04/22/2018 AND REPORTS HAVING SOME PAIN RELIEF. THE PATIENT RECEIVED A SACROILIAC JOINT INJECTION ON 04/30/2018 AN INPATIENT AND REPORTS THAT IT HELPED HER LOW BACK PAIN, BUT SAYS SHE STILL HAS PAIN DOWN HER LEG. THE PATIENT IS CURRENTLY USING OXYCODONE NEEDED AND GABAPENTIN TO AID IN PAIN RELIEF. PATIENT DENIES UNEXPLAINABLE WEIGHT LOSS, FEVER, CHILLS, NEW CHANGES ON HER URINARY OR BOWEL CONTROL. FALL RISK SCREENING: SCREENING :NO FALLS IN THE PAST YEAR CURRENT MEDICATIONS TAKING ATORVASTATIN CALCIUM 10 MG TABLET 1 TABLET ORALLY BEFORE BEDTIME TAKING METOPROLOL SUCCINATE ER 50 MG TABLET EXTENDED RELEASE 24 HOUR 1 TABLET ORALLY BEFORE BEDTIME TAKING AMLODIPINE BESYLATE 2.5 MG TABLET 1 TABLET ORALLY BEFORE BEDTIME TAKING CARISOPRODOL 350 MG TABLET 1 TABLET NEEDED ORALLY THREE TIMES A DAY NEEDED TAKING GABAPENTIN 100 MG CAPSULE 1 CAPSULE ORALLY DAILY AT 1200 TAKING GABAPENTIN 300 MG CAPSULE 1 CAPSULE ORALLY TWICE A DAY TAKING POLYETHYLENE GLYCOL - POWDER 1 PKT ORALLY BID TAKING OXYCODONE HCL 5 MG TABLET 1 TABLET NEEDED ORALLY TWICE A DAY NEEDED TAKING ADVIL 200 MG TABLET 1 TABLET WITH FOOD OR MILK NEEDED ORALLY TWO TIMES A DAY TAKING ADVIL PM 200-38 MG TABLET 2 TABLETS AT BEDTIME NEEDED ORALLY ONCE A DAY NOT-TAKING DOCUSATE SODIUM 100 MG CAPSULE 1 CAPSULE NEEDED ORALLY BID NOT-TAKING PANTOPRAZOLE SODIUM 40 MG TABLET DELAYED RELEASE 1 TABLET ORALLY ONCE A DAY NOT-TAKING SENNA-DOCUSATE SODIUM 8.6-50 MG TABLET 1 TABLET ORALLY BID NOT-TAKING MAGNESIUM CITRATE 1.745 GM/30ML SOLUTION 150 ML ORALLY ONCE NOT-TAKING HEPARIN SODIUM (PORCINE) 5000 UNIT/ML SOLUTION SUBCUTANEOUSLY EVERY 8 HOURS MEDICATION LIST REVIEWED AND RECONCILED WITH THE PATIENT PAST MEDICAL HISTORY HYPERTENSION DYSLIPIDEMIA RIGHT LOW BACK PAIN ALLERGIES ERYTHROMYCIN: BODY DOESN'T PROCESS: ALLERGY STREPTOMYCIN SULFATE: BODY DOESN'T PROCESS: ALLERGY SURGICAL HISTORY L5 DISC SURGERY 1986 BREAST REDUCTION 1990 TUBAL LIGATION YEARS AGO DEVIATED SEPTUM REPAIR 2001 TOOTH EXTRACTION MULTIPLE FAMILY HISTORY FATHER: , DIAGNOSED WITH HEART DISEASE, CANCER MOTHER: , DIAGNOSED WITH CANCER SOCIAL HISTORY GENERAL: TOBACCO USE ARE YOU A:NONSMOKER RECREATIONAL DRUG USE DRUG USE?NO CAFFEINE CAFFEINE USE?YES OCCASSIONAL CHRISTIAN [id number] LATTER DAY LANGUAGE LANGUAGES SPOKEN:YI EDUCATION LEVEL OF EDUCATION:FINISHED COLLEGE LEARNING BARRIERS / SPECIAL NEEDS BARRIERS TO LEARNING?NO HEARING IMPAIRED?NO VISION IMPAIRED?YES :CORRECTIVE LENSES COGNITIVELY IMPAIRED?NO READINESS TO LEARN?YES LEARNING PREFERENCES?NO LEARNING CAPABILITIES PRESENT?YES EMOTIONAL BARRIERS?NO SPECIAL DEVICES?NO MEMORY CARE DIRECTOR NEEDED?NO OCCUPATION: RETIRED. DIET: REGULAR. MARITAL STATUS: . OTHERS AT HOME: SPOUSE. PAIN CLINIC PFS, CLERGY, PUBLIC HEALTH REFERRALS HAS THE PATIENT BEEN EDUCATED REGARDING HIS/HER PLAN OF CARE?YES HAS THE PATIENT BEEN EDUCATED REGARDING PAIN, THE RISK FOR PAIN, THE IMPORTANCE OF EFFECTIVE PAIN MANAGEMENT, AND THE PAIN ASSESSMENT PROCESS?YES ADVANCE DIRECTIVE ADVANCE DIRECTIVE DISCUSSED WITH PATIENT:YES HCP - REMY LIVE () REVIEWED WITH PATIENT 04/30/18 1891 JS. HOSPITALIZATION/MAJOR DIAGNOSTIC PROCEDURE SURGERY- RELATED BACK PAIN 03/2018 REVIEW OF SYSTEMS REVIEWED BY: PROVIDER: PRADIP MARTIN MD . CONSTITUTIONAL: ANY CHANGE IN YOUR MEDICAL CONDITION? NO . CHILLS NO . FEVER NO . INFECTION: DO YOU HAVE NEW INFECTIONS? NO . DO YOU HAVE HISTORY OF MRSA? NO . MUSCULOSKELETAL: ANY NEW PATTERNS OF PAIN OR NUMBNESS? YES, PAIN LESS SEVERE . GASTROENTEROLOGY: ANY NEW CHANGE IN BOWEL CONTROL? NO . GENITOURINARY: ANY NEW CHANGE IN BLADDER CONTROL? NO . IS THERE A CHANCE YOU COULD BE ? NO . HEMATOLOGY/LYMPH: DO YOU TAKE ANY BLOOD THINNERS? (FOR EXAMPLE- COUMADIN, PLAVIX, AGGRENOX, PLATEL, PRADAXA, OR XARELTO) NO . WHEN WAS YOUR LAST DOSE? DATE: TIME: . NEUROLOGY: HAVE YOU FALLEN IN THE PAST 12 MONTHS? YES . ANY NEW EXTREMITY NUMBNESS OR WEAKNESS? NO . CARDIOLOGY: DO YOU HAVE A PACEMAKER OR DEFIBRILLATOR? NO . RESPIRATORY: HAVE YOU BEEN SICK IN THE PAST WEEK? NO . FEVER NO . FLU LIKE SYMPTOMS? NO . COUGH NO . INTEGUMENTARY: DO YOU HAVE ANY RASHES OR OPEN SORES? NO . ALLERGIC/IMMUNO: ARE YOU ALLERGIC TO IV DYE? NO . ANY NEW ALLERGIES? NO . PSYCHIATRIC: DO YOU HAVE THOUGHTS OF HURTING YOURSELF OR SOMEONE ELSE? NO . ARE YOU ABUSED, NEGLECTED, OR IN AN UNSAFE ENVIRONMENT? NO . ENDOCRINOLOGY: ARE YOU DIABETIC? NO . OTHER: DO YOU NEED ANY PRESCRIPTIONS? NO . IF YES, PLEASE LIST: ____ . ANY NEW PROBLEMS WITH YOUR MEDICATIONS? NO . WHEN DID YOU LAST EAT? ____ . WHEN DID YOU LAST DRINK? ____ . WHAT DID YOU LAST DRINK? ____ . NAME OF PERSON DRIVING YOU HOME? ____ . DO YOU HAVE ANY OTHER QUESTIONS OR CONCERNS NO . VITAL SIGNS WT 192 LBS, HT 68 IN, BMI 29.19 INDEX, BP 149/89 MM HG, HR 87 /MIN, RR 16 /MIN, TEMP 97.9 F, OXYGEN SAT % 98%, NA INITIALS SC 09:31, REVIEWED BY: JEEVAN. EXAMINATION GENERAL EXAMINATION: PATIENT IS ALERT O X 3 AND COOPERATIVE. THE PATIENT IS USING A WALKER TO AMBULATE. RIGHT LEG IS WEAKER AT EXTENSION AND FLEXION. STRAIGHT LEG RAISE OF THE RIGHT LEG IS POSITIVE AT 15 DEGREES FOR RADICULOPATHY. MRI OF THE LUMBAR SPINE DONE ON 04/18/2018 SHOWS POST LAMINECTOMY CHANGES AND BULGING DISCS AT MULTIPLE LEVELS WITH SCAR TISSUE AT THE RIGHT S1 NERVE. ASSESSMENTS LUMBAR POST-LAMINECTOMY SYNDROME - M96.1 (PRIMARY) INTERVERTEBRAL DISC DISORDER WITH RADICULOPATHY OF LUMBAR REGION - M51.16 TREATMENT LUMBAR POST-LAMINECTOMY SYNDROME CLINICAL NOTES: WE DISCUSSED SEVERAL ISSUES WITH MRS. LIVE'S PAIN MANAGEMENT CASE. DUE TO LUMBAR RADICULOPATHY, I WOULD LIKE TO MOVE FORWARD WITH A RIGHT L4, L5, AND S1 TRANSFORAMINAL EPIDURAL STEROID INJECTION AT THIS TIME. WE DISCUSSED THE BENEFITS, RISKS, AND ALTERNATIVES OF THE INJECTION AND THE PATIENT WOULD LIKE TO PROCEED. I WILL INCREASE THE PATIENT'S GABAPENTIN TO 300MG 3 TIMES PER DAY. I WILL ALSO START THE PATIENT ON IBUPROFEN 800MG UP TO 3 TABLETS PER DAY AND TIZANIDINE FOR THE SEVERE SPASMS. INSTRUCTIONS WERE GIVEN, QUESTIONS WERE ANSWERED, PATIENT REPORTS UNDERSTANDING AND AGREES WITH THE PLAN. I, SHONA MARIN, DOCUMENTED THE ABOVE INFORMATION ACTING A SCRIBE FOR DR. MARTIN. I HAVE REVIEWED THE ABOVE DOCUMENT, WRITTEN BY SHONA MATHEW AND I VERIFY THAT IT IS ACCURATE. OTHERS REFILL GABAPENTIN CAPSULE, 300 MG, 1 CAPSULE, ORALLY FOR PAIN, THREE TIMES A DAY MDD3, 30 DAY(S), 90, REFILLS 1 START IBUPROFEN TABLET, 800 MG, 1 TABLET WITH FOOD OR MILK NEEDED, ORALLY, EVERY 8 HOURS NEEDED MDD3, 30 DAY(S), 70, REFILLS 1 START TIZANIDINE HCL TABLET, 2 MG, 1 TABLET NEEDED, ORALLY FOR SPASMS AND PAIN, EVERY 6 HOURS NEEDED MDD3, 30 DAY(S), 70, REFILLS 1 PREVENTIVE MEDICINE PAIN CLINIC TEACHING: MEDITATION TIZANIDINE STARTED AND IBUPROFEN INCREASED GABAPENTIN PRINTED EDURCATION GIVEN. PROCEDURE CODES FA211 ESTABILISHED PATIENT [facility] CHARGE [id number] CURRENT MEDS W/DOSAGES DOCUMENTED G8730 PAIN ASSESS POS TOOL F/U PLAN DOC DISPOSITION & COMMUNICATION FOLLOW UP 3 WEEKS ELECTRONICALLY SIGNED BY PRADIP MARTIN MD, ON 05/22/2018 AT 06:50 AM EST DISCLAIMER : THIS IS A VISIT SUMMARY EXTRACTED FROM THE [employer] CHART. IT IS NOT A COPY OF THE [employer] PROGRESS NOTE. MTDD
== END ==
LOC: M PAIN 09:30
PROVIDERS: ATTEND Anesthesiology
DX: M96.1 Postlaminectomy syndrome, not elsewhere classified (principal); M51.16 Intervertebral disc disorders with radiculopathy, lumbar region; I10 Essential (primary) hypertension; E78.5 Hyperlipidemia, unspecified; Z98.890 Other specified postprocedural states; Z88.1 Allergy status to other antibiotic agents; Z88.2 Allergy status to sulfonamides; Z79.899 Other long term (current) drug therapy

== ENCOUNTER → 2018-05-22 | Outpatient (CLI) | payer OTHER, MEDICARE ==
--- NOTE | 2018-05-24 23:33 | ECWPNPC ---
PATIENT NAME: POONAM LIVE : 1950 GENDER: FEMALE VISIT DATE: 05/22/2018 DISCHARGE DATE: 05/22/18 1300 VISIT LOCKED DATE TIME: PHYSICIAN: ANGE COE RESOURCE: ANGE COE REASON FOR APPOINTMENT 1. POST PROC HISTORY OF PRESENT ILLNESS HISTORY OF PRESENT ILLNESS: HERE FOR POST PROCEDURE F/U.HAD RIGHT SIJ 04/30/18.REPORTING SIGNIFICANT REDUCTION OF PAIN POST PROCEDURE.RATING PAIN VAS 5/10.PAIN HAS GRADUALLY RETURNED TO BASELINE. PAIN THE PATIENT DESCRIBES THE PAIN... FALL RISK SCREENING: SCREENING : NO FALLS IN THE PAST YEAR. CURRENT MEDICATIONS TAKING GABAPENTIN 300 MG CAPSULE 1 CAPSULE ORALLY FOR PAIN THREE TIMES A DAY MDD3 TAKING IBUPROFEN 800 MG TABLET 1 TABLET WITH FOOD OR MILK NEEDED ORALLY EVERY 8 HOURS NEEDED MDD3 TAKING TIZANIDINE HCL 2 MG TABLET 1 TABLET NEEDED ORALLY FOR SPASMS AND PAIN EVERY 6 HOURS NEEDED MDD3 TAKING ATORVASTATIN CALCIUM 10 MG TABLET 1 TABLET ORALLY BEFORE BEDTIME TAKING METOPROLOL SUCCINATE ER 50 MG TABLET EXTENDED RELEASE 24 HOUR 1 TABLET ORALLY BEFORE BEDTIME TAKING AMLODIPINE BESYLATE 2.5 MG TABLET 1 TABLET ORALLY BEFORE BEDTIME TAKING POLYETHYLENE GLYCOL - POWDER 1 PKT ORALLY BID TAKING OXYCODONE HCL 5 MG TABLET 1 TABLET NEEDED ORALLY TWICE A DAY NEEDED, NOTES: NOT TAKING IT VERY FREQUENTLY TAKING ADVIL 200 MG TABLET 1 TABLET WITH FOOD OR MILK NEEDED ORALLY TWO TIMES A DAY TAKING ADVIL PM 200-38 MG TABLET 2 TABLETS AT BEDTIME NEEDED ORALLY ONCE A DAY NOT-TAKING CARISOPRODOL 350 MG TABLET 1 TABLET NEEDED ORALLY THREE TIMES A DAY NEEDED NOT-TAKING GABAPENTIN 100 MG CAPSULE 1 CAPSULE ORALLY DAILY AT 1200 NOT-TAKING DOCUSATE SODIUM 100 MG CAPSULE 1 CAPSULE NEEDED ORALLY BID NOT-TAKING PANTOPRAZOLE SODIUM 40 MG TABLET DELAYED RELEASE 1 TABLET ORALLY ONCE A DAY NOT-TAKING SENNA-DOCUSATE SODIUM 8.6-50 MG TABLET 1 TABLET ORALLY BID NOT-TAKING MAGNESIUM CITRATE 1.745 GM/30ML SOLUTION 150 ML ORALLY ONCE NOT-TAKING HEPARIN SODIUM (PORCINE) 5000 UNIT/ML SOLUTION SUBCUTANEOUSLY EVERY 8 HOURS MEDICATION LIST REVIEWED AND RECONCILED WITH THE PATIENT PAST MEDICAL HISTORY HYPERTENSION DYSLIPIDEMIA RIGHT LOW BACK PAIN ALLERGIES ERYTHROMYCIN: BODY DOESN'T PROCESS: ALLERGY STREPTOMYCIN SULFATE: BODY DOESN'T PROCESS: ALLERGY SURGICAL HISTORY L5 DISC SURGERY 1986 BREAST REDUCTION 1990 TUBAL LIGATION YEARS AGO DEVIATED SEPTUM REPAIR 2002 TOOTH EXTRACTION MULTIPLE FAMILY HISTORY FATHER: , DIAGNOSED WITH HEART DISEASE, CANCER MOTHER: , DIAGNOSED WITH CANCER SOCIAL HISTORY GENERAL: TOBACCO USE ARE YOU A:NONSMOKER RECREATIONAL DRUG USE DRUG USE?NO CAFFEINE CAFFEINE USE?YES OCCASSIONAL MU-ISM [id number] MOSQUE LANGUAGE LANGUAGES SPOKEN:KAZAKH EDUCATION LEVEL OF EDUCATION:FINISHED COLLEGE LEARNING BARRIERS / SPECIAL NEEDS BARRIERS TO LEARNING?NO HEARING IMPAIRED?NO VISION IMPAIRED?YES :CORRECTIVE LENSES COGNITIVELY IMPAIRED?NO READINESS TO LEARN?YES LEARNING PREFERENCES?NO LEARNING CAPABILITIES PRESENT?YES EMOTIONAL BARRIERS?NO SPECIAL DEVICES?YES USES A CANE OR A WALKER CUT OFF SAW OPERATOR METAL NEEDED?NO OCCUPATION: RETIRED. DIET: REGULAR. MARITAL STATUS: . OTHERS AT HOME: SPOUSE. PAIN CLINIC PFS, CLERGY, PUBLIC HEALTH REFERRALS HAS THE PATIENT BEEN EDUCATED REGARDING HIS/HER PLAN OF CARE?YES HAS THE PATIENT BEEN EDUCATED REGARDING PAIN, THE RISK FOR PAIN, THE IMPORTANCE OF EFFECTIVE PAIN MANAGEMENT, AND THE PAIN ASSESSMENT PROCESS?YES ADVANCE DIRECTIVE ADVANCE DIRECTIVE DISCUSSED WITH PATIENT:YES HCP - REMY LIVE () REVIEWED WITH PATIENT 04/30/18 3561 JSREVIEWED WITH PATIENT 05/22/18 1215 LAS. HOSPITALIZATION/MAJOR DIAGNOSTIC PROCEDURE SURGERY- RELATED BACK PAIN 03/2018 REVIEW OF SYSTEMS REVIEWED BY: PROVIDER: ANGE LAMAR . CONSTITUTIONAL: ANY CHANGE IN YOUR MEDICAL CONDITION? NO . CHILLS NO . FEVER NO . INFECTION: DO YOU HAVE NEW INFECTIONS? NO . DO YOU HAVE HISTORY OF MRSA? NO . MUSCULOSKELETAL: ANY NEW PATTERNS OF PAIN OR NUMBNESS? PT WAS TREATED DURING AN INPATIENT STAY, LESI 04/22, AND RIGHT SIJ 04/30. DISCHARGED FROM [facility] 05/01, WITH PAIN LEVEL 0-7, WITH PAIN INCREASING WITH ACTIVITY OR WHEN PAIN MEDICATIONS WORE OFF. SHE NOW REPORTS HER PAIN LEVEL IS STARTING TO RETURN, NOT INTENSE PRE-PROCEDURE, BUT REPORTS SHE REMAINS UNABLE TO DRIVE AND PROVIDE CARE FOR HER . . GASTROENTEROLOGY: ANY NEW CHANGE IN BOWEL CONTROL? NO . GENITOURINARY: ANY NEW CHANGE IN BLADDER CONTROL? NO . IS THERE A CHANCE YOU COULD BE ? NO . HEMATOLOGY/LYMPH: DO YOU TAKE ANY BLOOD THINNERS? (FOR EXAMPLE- COUMADIN, PLAVIX, AGGRENOX, PLATEL, PRADAXA, OR XARELTO) NO . WHEN WAS YOUR LAST DOSE? DATE: TIME: . NEUROLOGY: HAVE YOU FALLEN IN THE PAST 12 MONTHS? NO . ANY NEW EXTREMITY NUMBNESS OR WEAKNESS? PT REPORTS A NUMBNESS IN HER FOOT FOLLOWING HER PROCEDURE, BUT STATES THAT HAS PROGRESSIVELY RETURNED. . CARDIOLOGY: DO YOU HAVE A PACEMAKER OR DEFIBRILLATOR? NO . RESPIRATORY: HAVE YOU BEEN SICK IN THE PAST WEEK? NO . FEVER NO . FLU LIKE SYMPTOMS? NO . COUGH NO . INTEGUMENTARY: DO YOU HAVE ANY RASHES OR OPEN SORES? NO . ALLERGIC/IMMUNO: ARE YOU ALLERGIC TO IV DYE? NO . ANY NEW ALLERGIES? NO . PSYCHIATRIC: DO YOU HAVE THOUGHTS OF HURTING YOURSELF OR SOMEONE ELSE? NO . ARE YOU ABUSED, NEGLECTED, OR IN AN UNSAFE ENVIRONMENT? NO . ENDOCRINOLOGY: ARE YOU DIABETIC? NO . OTHER: DO YOU NEED ANY PRESCRIPTIONS? NO . IF YES, PLEASE LIST: ____ . ANY NEW PROBLEMS WITH YOUR MEDICATIONS? PT REPORTS THE TIZANIDINE MAKES HER DIZZY/SLEEPY, SO SHE IS TRYING TO TAKE THAT LITTLE POSSIBLE. . WHEN DID YOU LAST EAT? ____ . WHEN DID YOU LAST DRINK? ____ . WHAT DID YOU LAST DRINK? ____ . NAME OF PERSON DRIVING YOU HOME? ____ . DO YOU HAVE ANY OTHER QUESTIONS OR CONCERNS PT TO SEE DR ARENAS IN [place] TO CONSULT FOR BACK SURGERY . VITAL SIGNS WT 189.6 LBS, HT 68 IN, BMI 28.83 INDEX, BP 155/76 MM HG, HR 79 /MIN, RR 18 /MIN, TEMP 97.7 F, OXYGEN SAT % 97%, SAFE IN ENV? (Y/N) YES, NA INITIALS IN 11:57, REVIEWED BY: MEREDITH. EXAMINATION GENERAL EXAMINATION: GENERAL APPEARANCE:ALERT,NO DISTRESS . PSYCHAFFECT NORMAL . LUNGS:LUNG SOUNDS ARE CLEAR . HEART:HEART RATE REGULAR . MUSCULOSKELETAL:MST 5/5 BILAT. LOWER EXTREMITIES . LUMBAR SACRAL SPINE TENDERNESS RIGHT SIJ .POSITIVE LOKESH TEST-RIGHT LEG. DIAGNOSTIC TESTS REVIEWEDMRI L/S [id number] . ASSESSMENTS SACROILIITIS, NOT ELSEWHERE CLASSIFIED - M46.1 (PRIMARY) TREATMENT SACROILIITIS, NOT ELSEWHERE CLASSIFIED NOTES: RIGHT SIJ. PREVENTIVE MEDICINE PAIN CLINIC TEACHING: PROCEDURE TEACHING REVIEWED PROCEDURE INFORMATION WITH PATIENT. ALSO REVIEWED PRE-PROCEDURE INSTRUCTIONS. PATIENT VERBALIZED AN UNDERSTANDING. JONELLE SANTOS 05/22/2018 1:28:10 PM > . PROCEDURE CODES FA211 ESTABILISHED PATIENT [facility] CHARGE DISPOSITION & COMMUNICATION FOLLOW UP POST (REASON: RIGHT SIJ) ELECTRONICALLY SIGNED BY BRIANDA PETTY ON 05/24/2018 AT 10:30 AM EST DISCLAIMER : THIS IS A VISIT SUMMARY EXTRACTED FROM THE [employer] CHART. IT IS NOT A COPY OF THE [employer] PROGRESS NOTE. BRINDA
== END ==
LOC: M PAIN 11:45
PROVIDERS: ATTEND Nurse Practitioner Family
DX: M46.1 Sacroiliitis, not elsewhere classified (principal); I10 Essential (primary) hypertension; E78.5 Hyperlipidemia, unspecified; Z98.890 Other specified postprocedural states; Z88.1 Allergy status to other antibiotic agents; Z88.2 Allergy status to sulfonamides; Z79.899 Other long term (current) drug therapy

== ENCOUNTER → 2018-07-29 | Outpatient (CLI) | payer OTHER, MEDICARE ==
--- NOTE | 2018-08-21 00:22 | ECWPNPC ---
PATIENT NAME: POONAM LIVE : 1950 GENDER: FEMALE VISIT DATE: 07/29/2018 DISCHARGE DATE: 07/29/18 1223 VISIT LOCKED DATE TIME: PHYSICIAN: ANGE COE RESOURCE: ANGE COE REASON FOR APPOINTMENT 1. POST PROC HISTORY OF PRESENT ILLNESS HISTORY OF PRESENT ILLNESS: HERE FOR POST PROC. F/U.HAD RIGHT SIJ ON 05/06/18.PAIN IS BETTER ON RIGHT BUT HAS BEEN EXPERIENCING RETURN OF LBP NOW GREATER ON LEFT SIDE.RATING PAIN VAS 5/10.MEDICATION MAKES HER GROGGY SO SHE ONLY TAKES AT NIGHT.DESCRIBES PAIN CONTINUOUS,SHARP AND ACHING. PAIN THE PATIENT DESCRIBES THE PAIN... FALL RISK SCREENING: SCREENING :NO FALLS REPORTED IN THE LAST YEAR CURRENT MEDICATIONS TAKING GABAPENTIN 300 MG CAPSULE 1 CAPSULE ORALLY FOR PAIN THREE TIMES A DAY MDD3 TAKING IBUPROFEN 800 MG TABLET 1 TABLET WITH FOOD OR MILK NEEDED ORALLY EVERY 8 HOURS NEEDED MDD3 TAKING TIZANIDINE HCL 2 MG TABLET 1 TABLET NEEDED ORALLY FOR SPASMS AND PAIN EVERY 6 HOURS NEEDED MDD3 TAKING ATORVASTATIN CALCIUM 10 MG TABLET 1 TABLET ORALLY BEFORE BEDTIME TAKING METOPROLOL SUCCINATE ER 50 MG TABLET EXTENDED RELEASE 24 HOUR 1 TABLET ORALLY BEFORE BEDTIME TAKING POLYETHYLENE GLYCOL - POWDER 1 PKT NEEDED ORALLY DAILY TAKING ADVIL 200 MG TABLET 1 TABLET WITH FOOD OR MILK NEEDED ORALLY TWO TIMES A DAY TAKING ADVIL PM 200-38 MG TABLET 2 TABLETS AT BEDTIME NEEDED ORALLY ONCE A DAY TAKING LORATADINE 10 MG TABLET 1 TABLET NEEDED ORALLY ONCE A DAY NOT-TAKING AMLODIPINE BESYLATE 2.5 MG TABLET 1 TABLET ORALLY BEFORE BEDTIME NOT-TAKING OXYCODONE HCL 5 MG TABLET 1 TABLET NEEDED ORALLY TWICE A DAY NEEDED, NOTES: NOT TAKING IT VERY FREQUENTLY NOT-TAKING CARISOPRODOL 350 MG TABLET 1 TABLET NEEDED ORALLY THREE TIMES A DAY NEEDED NOT-TAKING GABAPENTIN 100 MG CAPSULE 1 CAPSULE ORALLY DAILY AT 1200 NOT-TAKING DOCUSATE SODIUM 100 MG CAPSULE 1 CAPSULE NEEDED ORALLY BID NOT-TAKING PANTOPRAZOLE SODIUM 40 MG TABLET DELAYED RELEASE 1 TABLET ORALLY ONCE A DAY NOT-TAKING SENNA-DOCUSATE SODIUM 8.6-50 MG TABLET 1 TABLET ORALLY BID NOT-TAKING MAGNESIUM CITRATE 1.745 GM/30ML SOLUTION 150 ML ORALLY ONCE NOT-TAKING HEPARIN SODIUM (PORCINE) 5000 UNIT/ML SOLUTION SUBCUTANEOUSLY EVERY 8 HOURS MEDICATION LIST REVIEWED AND RECONCILED WITH THE PATIENT PAST MEDICAL HISTORY HYPERTENSION DYSLIPIDEMIA RIGHT LOW BACK PAIN 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 2 BROTHERS - ACCIDENT KIDS. SOCIAL HISTORY GENERAL: TOBACCO USE ARE YOU A:NONSMOKER OTHERS AT HOME: SPOUSE. EDUCATION LEVEL OF EDUCATION:FINISHED COLLEGE DIET: REGULAR. LANGUAGE LANGUAGES SPOKEN:HEBREW RECREATIONAL DRUG USE DRUG USE?NO LEARNING BARRIERS / SPECIAL NEEDS BARRIERS TO LEARNING?NO HEARING IMPAIRED?NO VISION IMPAIRED?YES :CORRECTIVE LENSES COGNITIVELY IMPAIRED?NO READINESS TO LEARN?YES LEARNING PREFERENCES?NO LEARNING CAPABILITIES PRESENT?YES EMOTIONAL BARRIERS?NO SPECIAL DEVICES?YES USES A CANE OR A WALKER MOTOR CHECKER NEEDED?NO PAIN CLINIC PFS, CLERGY, PUBLIC HEALTH REFERRALS HAS THE PATIENT BEEN EDUCATED REGARDING HIS/HER PLAN OF CARE?YES HAS THE PATIENT BEEN EDUCATED REGARDING PAIN, THE RISK FOR PAIN, THE IMPORTANCE OF EFFECTIVE PAIN MANAGEMENT, AND THE PAIN ASSESSMENT PROCESS?YES LATEX QUESTIONNAIRE LATEX ALLERGY : HAVE YOU EVER DEVELOPED ANY TYPE OF REACTION AFTER HANDLING LATEX PRODUCTS SUCH RUBBER GLOVES, CONDOMS, DIAPHRAGMS, BALLOONS, SOCKS, OR UNDERWEAR?NO LATEX ALLERGY : HAVE YOU EVER DEVELOPED ANY TYPE OF REACTION DURING OR AFTER DENTAL APPOINTMENT, VAGINAL/RECTAL EXAMINATION, SURGICAL PROCEDURE, OR ANY OTHER EXPOSURE?NO LATEX RISK : HAVE YOU EVER HAD ANY DIFFICULTY BREATHING OR HIVES AFTER EATING OR HANDLING ANY FRUITS, OR VEGETABLES; SUCH KIWI, BANANAS, STONE FRUITS, OR CHESTNUTSNO LATEX RISK : DO YOU HAVE A PREVIOUS PERSONAL HISTORY OF MORE THAN NINE SURGERIES, SPINA BIFIDA, OR REPEATED CATHERTIZATIONS? YES - PLEASE INDICATE : > 9 SURGERIES LATEX RISK : ARE YOU FREQUENTLY EXPOSED TO LATEX PRODUCTS IN YOUR OCCUPATION?NO DATE ASKED : 07/29/2018 CAFFEINE CAFFEINE USE?YES OCCASSIONAL ADVANCE DIRECTIVE ADVANCE DIRECTIVE DISCUSSED WITH PATIENT:YES HCP - REMY LIVE () [id number] MU-ISM MARITAL STATUS: . OCCUPATION: RETIRED. REVIEWED WITH PATIENT 04/30/18 4302 JSREVIEWED WITH PATIENT 2/27/19 1215 LASREVIEWED WITH PATIENT 07/29/18 1136 JS. HOSPITALIZATION/MAJOR DIAGNOSTIC PROCEDURE SURGERY- RELATED BACK PAIN 03/2018 REVIEW OF SYSTEMS REVIEWED BY: PROVIDER: ANGE LAMAR . CONSTITUTIONAL: ANY CHANGE IN YOUR MEDICAL CONDITION? NO . CHILLS NO . FEVER NO . INFECTION: DO YOU HAVE NEW INFECTIONS? NO . DO YOU HAVE HISTORY OF MRSA? NO . MUSCULOSKELETAL: ANY NEW PATTERNS OF PAIN OR NUMBNESS? YES, STATES THE PAIN HAS CHANGED TO THE LEFT SIDE. IT WAS IN THE RIGHT SIDE WHEN IN THE HOSPITAL . GASTROENTEROLOGY: ANY NEW CHANGE IN BOWEL CONTROL? NO . GENITOURINARY: ANY NEW CHANGE IN BLADDER CONTROL? NO . IS THERE A CHANCE YOU COULD BE ? NO . HEMATOLOGY/LYMPH: DO YOU TAKE ANY BLOOD THINNERS? (FOR EXAMPLE- COUMADIN, PLAVIX, AGGRENOX, PLATEL, PRADAXA, OR XARELTO) NO . WHEN WAS YOUR LAST DOSE? DATE: TIME: . NEUROLOGY: HAVE YOU FALLEN IN THE PAST 12 MONTHS? NO . ANY NEW EXTREMITY NUMBNESS OR WEAKNESS? YES, STATES WEAKNESS AND LOSING BALANCE IN THE RIGHT LEG, CAUSING INCREASED PAIN IN THE LEFT LEG . CARDIOLOGY: DO YOU HAVE A PACEMAKER OR DEFIBRILLATOR? NO . RESPIRATORY: HAVE YOU BEEN SICK IN THE PAST WEEK? NO . FEVER NO . FLU LIKE SYMPTOMS? NO . COUGH NO . INTEGUMENTARY: DO YOU HAVE ANY RASHES OR OPEN SORES? NO . ALLERGIC/IMMUNO: ARE YOU ALLERGIC TO IV DYE? NO . ANY NEW ALLERGIES? NO . PSYCHIATRIC: DO YOU HAVE THOUGHTS OF HURTING YOURSELF OR SOMEONE ELSE? NO . ARE YOU ABUSED, NEGLECTED, OR IN AN UNSAFE ENVIRONMENT? NO . ENDOCRINOLOGY: ARE YOU DIABETIC? NO . OTHER: DO YOU NEED ANY PRESCRIPTIONS? YES . IF YES, PLEASE LIST: ____GABAPENTIN, TIZANIDINE? . ANY NEW PROBLEMS WITH YOUR MEDICATIONS? YES, STATES THE TIZANIDINE MAKES HER VERY SLEEPY AND OUT OF IT, NOW ONLY TAKES IT A NIGHT . WHEN DID YOU LAST EAT? ____ . WHEN DID YOU LAST DRINK? ____ . WHAT DID YOU LAST DRINK? ____ . NAME OF PERSON DRIVING YOU HOME? ____ . DO YOU HAVE ANY OTHER QUESTIONS OR CONCERNS YES, STATES THAT THE PHYSICAL THERAPY, MASSAGE, AND CHIROPRACTOR ARE NOT HELPING TO RELIEVE THE PAIN MUCH . VITAL SIGNS WT 194.6 LBS, HT 68 IN, BMI 29.59 INDEX, BP 153/73 MM HG, HR 62 /MIN, RR 18 /MIN, TEMP 97.8 F, OXYGEN SAT % 98%, SAFE IN ENV? (Y/N) YES, NA INITIALS AW 1120, REVIEWED BY: JS. EXAMINATION GENERAL EXAMINATION: GENERAL APPEARANCE: AWAKE,ALERT ,PLEAASANT . PSYCH AFFECT NORMAL . LUNGS: LUNG CARR ARE CLEAR TO AUSCULTATION BILATERALLY. GOOD MOVEMENT OF AIR . HEART: S1, S2 IN A REGULAR RATE AND RHYTHM. NO SIGNIFICANT MURMURS, RUBS OR GALLOPS NOTED . LUMBAR SACRAL SPINEPALPATION:TENDER OVER BILAT. L4/5-L5/S1 LUMBAR FACETS WITH FACET LOADING.. DIAGNOSTIC TESTS REVIEWED MRI L/S SPINE-04/18/18. ASSESSMENTS LUMBOSACRAL SPINAL STENOSIS - M48.07 (PRIMARY) TREATMENT LUMBOSACRAL SPINAL STENOSIS REFILL GABAPENTIN CAPSULE, 300 MG, 1 CAPSULE, ORALLY FOR PAIN, BID, 30 DAY(S), 60 CAPSULE, REFILLS 2 REFILL TIZANIDINE HCL TABLET, 2 MG, 1/2 TO 1 TAB, ORALLY FOR SPASMS AND PAIN, Q8H PRN, 30 DAY(S), 45, REFILLS 2 NOTES: BILAT. L4/5-L5/S1 LFBT,FACET JOINT INJECTION MATERIAL WAS PRINTED,FACET JOINT INJECTION: YOUR EXPERIENCE MATERIAL WAS PRINTED. PREVENTIVE MEDICINE PAIN CLINIC TEACHING: PROCEDURE TEACHING INFORMATION ABOUT FACET JOINT INJECTIONS PRINTED AND REVIEWED WITH PT, PT VERBALIZES UNDERSTANDING 07/29/18 1211 LAS. PROCEDURE CODES FA211 ESTABILISHED PATIENT [facility] FACILITY CHARGE DISPOSITION & COMMUNICATION FOLLOW UP POST (REASON: BILAT. L4/5-L5/S1 LFBT) ELECTRONICALLY SIGNED BY BRIANDA PETTY ON 08/20/2018 AT 02:16 PM EDT DISCLAIMER : THIS IS A VISIT SUMMARY EXTRACTED FROM THE [employer] CHART. IT IS NOT A COPY OF THE [employer] PROGRESS NOTE. BRINDA
== END ==
LOC: M PAIN 10:45
PROVIDERS: ATTEND Nurse Practitioner Family
DX: M48.07 Spinal stenosis, lumbosacral region (principal); I10 Essential (primary) hypertension; E78.5 Hyperlipidemia, unspecified; Z98.890 Other specified postprocedural states; Z88.1 Allergy status to other antibiotic agents; Z79.899 Other long term (current) drug therapy

== ENCOUNTER → 2018-09-17 | Outpatient (CLI) | payer OTHER, MEDICARE ==
[~2018-09-17] MED LIST changes: +BUPIVACAINE HCL 0.25% 30 ML VIAL As Ordered ONE; +ISOVUE-M 300 61% 15ML VIAL (Q9967) As Ordered ONE; +LIDOCAINE 1% SDV INJ 30 ML VIAL As Ordered ONE; +TRIAMCINOLONE ACETONIDE SUSP 40 MG/ML VIAL (J3301) As Ordered ONE; +diazePAM 5 MG TAB As Ordered ONE; +oxyCODONE 5MG TAB As Ordered ONE
--- NOTE | 2018-09-17 12:56 | REP ---
Partial lumbar spine series: Two views . History: Injection procedure for pain. 22 seconds of fluoroscopy time is reported. Findings: A sequence of two fluoroscopically obtained last image hold procedural spot radiographs of the lumbar spine document needle position and contrast injection associated with injection procedure. Electronically Signed by Mukul Bhatia MD 09/17/2018 12:47 P
--- NOTE | 2018-09-26 00:56 | ECWPNPC ---
PATIENT NAME: POONAM LIVE : 1950 GENDER: FEMALE VISIT DATE: 09/17/2018 DISCHARGE DATE: 09/17/18 1105 VISIT LOCKED DATE TIME: PHYSICIAN: PRADIP MARTIN MD RESOURCE: PRADIP MARTIN MD REASON FOR APPOINTMENT 1. BILAT. L4/5-L5/S1 LFBT HISTORY OF PRESENT ILLNESS HISTORY OF PRESENT ILLNESS: PAIN THE PATIENT DESCRIBES THE PAIN... FALL RISK SCREENING: SCREENING :NO FALLS REPORTED IN THE LAST YEAR CURRENT MEDICATIONS TAKING IBUPROFEN 800 MG TABLET 1 TABLET WITH FOOD OR MILK NEEDED ORALLY EVERY 8 HOURS NEEDED MDD3, NOTES: 09/15/18 TAKING ATORVASTATIN CALCIUM 10 MG TABLET 1 TABLET ORALLY BEFORE BEDTIME, NOTES: 09/16/18 TAKING METOPROLOL SUCCINATE ER 50 MG TABLET EXTENDED RELEASE 24 HOUR 1 TABLET ORALLY BEFORE BEDTIME, NOTES: 09/16/18 TAKING POLYETHYLENE GLYCOL - POWDER 1 PKT NEEDED ORALLY DAILY, NOTES: 09/15/18 TAKING ADVIL 200 MG TABLET 1 TABLET WITH FOOD OR MILK NEEDED ORALLY TWO TIMES A DAY, NOTES: 09/15/18 TAKING ADVIL PM 200-38 MG TABLET 2 TABLETS AT BEDTIME NEEDED ORALLY ONCE A DAY, NOTES: 09/16/18 TAKING LORATADINE 10 MG TABLET 1 TABLET NEEDED ORALLY ONCE A DAY, NOTES: 09/15/18 TAKING GABAPENTIN 300 MG CAPSULE 1 CAPSULE ORALLY FOR PAIN BID, NOTES: 09/16/18 TAKING TIZANIDINE HCL 2 MG TABLET 1/2 TO 1 TAB ORALLY FOR SPASMS AND PAIN Q8H PRN, NOTES: 09/16/18 TAKING AMLODIPINE BESYLATE 2.5 MG TABLET 1 TABLET ORALLY BEFORE BEDTIME, NOTES: 09/16/18 TAKING MAGNESIUM CITRATE 1.745 GM/30ML SOLUTION 150 ML ORALLY ONCE, NOTES: 09/16/18 NOT-TAKING OXYCODONE HCL 5 MG TABLET 1 TABLET NEEDED ORALLY TWICE A DAY NEEDED, NOTES: NOT TAKING IT VERY FREQUENTLY NOT-TAKING CARISOPRODOL 350 MG TABLET 1 TABLET NEEDED ORALLY THREE TIMES A DAY NEEDED NOT-TAKING GABAPENTIN 100 MG CAPSULE 1 CAPSULE ORALLY DAILY AT 1200 NOT-TAKING DOCUSATE SODIUM 100 MG CAPSULE 1 CAPSULE NEEDED ORALLY BID NOT-TAKING PANTOPRAZOLE SODIUM 40 MG TABLET DELAYED RELEASE 1 TABLET ORALLY ONCE A DAY NOT-TAKING SENNA-DOCUSATE SODIUM 8.6-50 MG TABLET 1 TABLET ORALLY BID NOT-TAKING HEPARIN SODIUM (PORCINE) 5000 UNIT/ML SOLUTION SUBCUTANEOUSLY EVERY 8 HOURS MEDICATION LIST REVIEWED AND RECONCILED WITH THE PATIENT PAST MEDICAL HISTORY HYPERTENSION DYSLIPIDEMIA RIGHT LOW BACK PAIN 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 2 BROTHERS - ACCIDENT KIDS. SOCIAL HISTORY GENERAL: TOBACCO USE ARE YOU A:NONSMOKER OTHERS AT HOME: SPOUSE. EDUCATION LEVEL OF EDUCATION:FINISHED COLLEGE DIET: REGULAR. LANGUAGE LANGUAGES SPOKEN:CZECH RECREATIONAL DRUG USE DRUG USE?NO LEARNING BARRIERS / SPECIAL NEEDS BARRIERS TO LEARNING?NO HEARING IMPAIRED?NO VISION IMPAIRED?YES :CORRECTIVE LENSES COGNITIVELY IMPAIRED?NO READINESS TO LEARN?YES LEARNING PREFERENCES?NO LEARNING CAPABILITIES PRESENT?YES EMOTIONAL BARRIERS?NO SPECIAL DEVICES?YES USES A CANE OR A WALKER DIVERSITY INTERN NEEDED?NO PAIN CLINIC PFS, CLERGY, PUBLIC HEALTH REFERRALS HAS THE PATIENT BEEN EDUCATED REGARDING HIS/HER PLAN OF CARE?YES HAS THE PATIENT BEEN EDUCATED REGARDING PAIN, THE RISK FOR PAIN, THE IMPORTANCE OF EFFECTIVE PAIN MANAGEMENT, AND THE PAIN ASSESSMENT PROCESS?YES LATEX QUESTIONNAIRE LATEX ALLERGY : HAVE YOU EVER DEVELOPED ANY TYPE OF REACTION AFTER HANDLING LATEX PRODUCTS SUCH RUBBER GLOVES, CONDOMS, DIAPHRAGMS, BALLOONS, SOCKS, OR UNDERWEAR?NO LATEX ALLERGY : HAVE YOU EVER DEVELOPED ANY TYPE OF REACTION DURING OR AFTER DENTAL APPOINTMENT, VAGINAL/RECTAL EXAMINATION, SURGICAL PROCEDURE, OR ANY OTHER EXPOSURE?NO LATEX RISK : HAVE YOU EVER HAD ANY DIFFICULTY BREATHING OR HIVES AFTER EATING OR HANDLING ANY FRUITS, OR VEGETABLES; SUCH KIWI, BANANAS, STONE FRUITS, OR CHESTNUTSNO LATEX RISK : DO YOU HAVE A PREVIOUS PERSONAL HISTORY OF MORE THAN NINE SURGERIES, SPINA BIFIDA, OR REPEATED CATHERTIZATIONS? YES - PLEASE INDICATE : > 9 SURGERIES LATEX RISK : ARE YOU FREQUENTLY EXPOSED TO LATEX PRODUCTS IN YOUR OCCUPATION?NO DATE ASKED : 07/29/2018 CAFFEINE CAFFEINE USE?YES OCCASSIONAL ADVANCE DIRECTIVE ADVANCE DIRECTIVE DISCUSSED WITH PATIENT:YES HCP - REMY LIVE () RASTAFARI [id number] [employer] MARITAL STATUS: . OCCUPATION: RETIRED. REVIEWED WITH PATIENT 04/30/18 5209 JSREVIEWED WITH PATIENT 05/22/18 1215 LASREVIEWED WITH PATIENT 07/29/18 1136 JS. HOSPITALIZATION/MAJOR DIAGNOSTIC PROCEDURE SURGERY- RELATED BACK PAIN 03/2018 REVIEW OF SYSTEMS REVIEWED BY: PROVIDER: . CONSTITUTIONAL: ANY CHANGE IN YOUR MEDICAL CONDITION? NO . CHILLS NO . FEVER NO . INFECTION: DO YOU HAVE NEW INFECTIONS? NO . DO YOU HAVE HISTORY OF MRSA? NO . MUSCULOSKELETAL: ANY NEW PATTERNS OF PAIN OR NUMBNESS? YES, RIGHT HIP PAIN RADIATING TO LEFT HIP AND DOWN LEFT LEG . GASTROENTEROLOGY: ANY NEW CHANGE IN BOWEL CONTROL? NO . GENITOURINARY: ANY NEW CHANGE IN BLADDER CONTROL? NO . IS THERE A CHANCE YOU COULD BE ? NO . HEMATOLOGY/LYMPH: DO YOU TAKE ANY BLOOD THINNERS? (FOR EXAMPLE- COUMADIN, PLAVIX, AGGRENOX, PLATEL, PRADAXA, OR XARELTO) NO . WHEN WAS YOUR LAST DOSE? DATE: TIME: . NEUROLOGY: HAVE YOU FALLEN IN THE PAST 12 MONTHS? YES, LAST WEEK FROM LOSS OF BALANCE, PT DENIES INJURIES . ANY NEW EXTREMITY NUMBNESS OR WEAKNESS? NO . CARDIOLOGY: DO YOU HAVE A PACEMAKER OR DEFIBRILLATOR? NO . RESPIRATORY: HAVE YOU BEEN SICK IN THE PAST WEEK? NO . FEVER NO . FLU LIKE SYMPTOMS? NO . COUGH YES, ALLERGY COUGH . INTEGUMENTARY: DO YOU HAVE ANY RASHES OR OPEN SORES? NO . ALLERGIC/IMMUNO: ARE YOU ALLERGIC TO IV DYE? NO . ANY NEW ALLERGIES? NO . PSYCHIATRIC: DO YOU HAVE THOUGHTS OF HURTING YOURSELF OR SOMEONE ELSE? NO . ARE YOU ABUSED, NEGLECTED, OR IN AN UNSAFE ENVIRONMENT? NO . ENDOCRINOLOGY: ARE YOU DIABETIC? NO . OTHER: DO YOU NEED ANY PRESCRIPTIONS? NO . IF YES, PLEASE LIST: ____ . ANY NEW PROBLEMS WITH YOUR MEDICATIONS? NO . WHEN DID YOU LAST EAT? 09/16/18 1800 . WHEN DID YOU LAST DRINK? 09/17/18 0700 . WHAT DID YOU LAST DRINK? WATER . NAME OF PERSON DRIVING YOU HOME? AVNI . DO YOU HAVE ANY OTHER QUESTIONS OR CONCERNS YES, BALANCE ISSUES . VITAL SIGNS WT 198.4 LBS, HT 68 IN, BMI 30.16 INDEX, BP 134/77 MM HG, HR 72 /MIN, RR 16 /MIN, TEMP 97.3 F, OXYGEN SAT % 98%, NA INITIALS SC 08:53, REVIEWED BY: SHANIQUA. ASSESSMENTS SPONDYLOSIS OF LUMBAR REGION WITHOUT MYELOPATHY OR RADICULOPATHY - M47.816 (PRIMARY) SPONDYLOSIS OF LUMBOSACRAL REGION WITHOUT MYELOPATHY OR RADICULOPATHY - M47.817 PROCEDURES PN LUMBAR FACET BLOCK THERAPEUTIC PRE PROCEDURE DIAGNOSIS LUMBAR SPONDYLOSIS, LUMBOSACRAL SPONDYLOSIS POST PROCEDURE DIAGNOSIS LUMBAR SPONDYLOSIS, LUMBOSACRAL SPONDYLOSIS PROCEDURE BILATERAL L4-L5 AND BILATERAL L5-S1 LUMBAR FACET THERAPEUTIC BLOCK SURGEON DR. PRADIP MARTIN NEWSPAPER MANAGER NONE ANESTHESIA LOCAL PRE PROCEDURE NOTE THE PATIENT HAS A HISTORY OF CHRONIC LOW BACK PAIN. I EVALUATE THE PATIENT AND REVIEWED THE CHART. I WENT OVER THE RISKS, ALTERNATIVES, AND BENEFITS ASSOCIATED WITH THIS PROCEDURE. THE PATIENT WOULD LIKE TO PROCEED AND GIVE CONSENT TO PERFORMED THE PROCEDURE. THE PATIENT DENIES UNEXPLAINABLE WEIGHT LOSS, FEVER, CHILLS, OR NEW CHANGES IN URINARY OR BOWEL CONTROL DESCRIPTION OF PROCEDURE THE PATIENT WAS BROUGHT TO THE PROCEDURE ROOM AND PLACED IN THE PRONE POSITION. THE LUMBOSACRAL AREA WAS CLEANED WITH CHLORAPREP SOLUTION AND DRAPED ASEPTICALLY. THE PROCEDURE WAS DONE UNDER STERILE CONDITIONS. I CHECKED LATERALITY AND THE LEVEL WHERE THE PROCEDURE WAS GOING TO BE PERFORMED WITH THE PATIENT AND THE SUPPORTING STAFF AT THE MOMENT OF THE TIME OUT IN THE PROCEDURE ROOM. UNDER FLUOROSCOPIC GUIDANCE, THE TARGET POINT WAS SELECTED AT THE RIGHT AND LEFT L4-L5 AND RIGHT AND LEFT L5-S1 FACET JOINT. TARGET POINT WAS SELECTED AFTER LATERAL ROTATION AND TILT OF THE MAGNIFIER OF THE C-ARM. LIDOCAINE 0.5% WAS USED TO NUMB THE SKIN AND THE SUBCUTANEOUS TISSUE BELOW IT. SPINAL NEEDLES, 22-GAUGE, WERE ADVANCED UNDER FLUOROSCOPIC GUIDANCE AND FOLLOWING PATIENT FEEDBACK UNTIL THE TARGETS WERE TOUCHED. THE POSITION OF THE NEEDLES WAS VERIFIED WITH AP AND LATERAL VIEWS. AFTER PROPER POSITION OF THE NEEDLES WAS ACHIEVED, ISOVUE-M DYE 30% 0.1 ML WAS INJECTED SHOWING ADEQUATE SPREAD OF THE DYE. THEN A SOLUTION OF 1.9 ML OF BUPIVACAINE 0.125% OF KENALOG 10 MG WAS INJECTED AT EACH SITE. THERE WAS NO EVIDENCE OF BLOOD, PARESTHESIA OR CEREBROSPINAL FLUID DURING THE PROCEDURE. THE PATIENT WAS SENT TO THE RECOVERY ROOM. THE PATIENT WAS MOVING THE EXTREMITIES AND DOING WELL. THERE WAS NO COMPLICATION DURING THE PROCEDURE. FLUOROSCOPY TIME WAS 22 SECONDS POST PROCEDURE NOTE THE PATIENT WILL BE SEEN IN A FOLLOW UP IN THE NEXT FEW WEEKS. INSTRUCTIONS WERE GIVEN, QUESTIONS WERE ANSWERED, AND THE PATIENT EXPRESSED UNDERSTANDING AND AGREES WITH THE PLAN. I, SHONA MARIN, DOCUMENTED THE ABOVE INFORMATION ACTING A SCRIBE FOR DR. MARTIN. I HAVE REVIEWED THE ABOVE DOCUMENT, WRITTEN BY SHONA ARCEOIBDanisha AND I VERIFY THAT IT IS ACCURATE. DIAGNOSTIC IMAGING [facility] FACET BLOCK (PAIN)[id number] PROCEDURE CODES 6045F RADXPS IN END [id number] PXD [id number] INJ PARAVERT F JNT L/S 1 LEV, MODIFIERS: 50 13723 INJ PARAVERT F JNT L/S 2 LEV, MODIFIERS: 50 DISPOSITION & COMMUNICATION FOLLOW UP 3 WEEKS ELECTRONICALLY SIGNED BY PRADIP MARTIN MD, MD ON 09/25/2018 AT 12:48 PM EDT DISCLAIMER : THIS IS A VISIT SUMMARY EXTRACTED FROM THE [email or web address] CHART. IT IS NOT A COPY OF THE [employer] PROGRESS NOTE. MTDD
== END ==
LOC: M PAIN 09:00
PROVIDERS: ATTEND Anesthesiology
DX: M47.816 Spondylosis without myelopathy or radiculopathy, lumbar region (principal); M47.817 Spondylosis without myelopathy or radiculopathy, lumbosacral region; I10 Essential (primary) hypertension; E78.5 Hyperlipidemia, unspecified; M54.5 Low back pain; Z79.899 Other long term (current) drug therapy; Z88.1 Allergy status to other antibiotic agents; Z88.2 Allergy status to sulfonamides
CPT/HCPCS: 64493; 64494; J3301; Q9967

== ENCOUNTER → 2018-10-01 | Outpatient (CLI) | payer OTHER, MEDICARE ==
[~2018-10-01] MED LIST changes: -BUPIVACAINE HCL 0.25% 30 ML VIAL As Ordered ONE; -ISOVUE-M 300 61% 15ML VIAL (Q9967) As Ordered ONE; -LIDOCAINE 1% SDV INJ 30 ML VIAL As Ordered ONE; -TRIAMCINOLONE ACETONIDE SUSP 40 MG/ML VIAL (J3301) As Ordered ONE; -diazePAM 5 MG TAB As Ordered ONE; -oxyCODONE 5MG TAB As Ordered ONE
[2018-10-01 09:26] LABS: BASO # 0.1 10^3/uL (0.0-0.2); BASO % 0.5 % (0.0-1.0); EOS # 0.1 10^3/uL (0.0-0.50); EOS % 0.7 % (0.0-3.0); HEMATOCRIT 43.7 % (36.0-47.0); HEMOGLOBIN 14.6 g/dl (12.0-15.5); LYMPH # 3.2 10^3/uL (1.5-4.5); LYMPH % 33.4 % (24.0-44.0); MEAN CORPUSCULAR HEMOGLOBIN 30.9 pg (27.0-33.0); MEAN CORPUSCULAR HGB CONC 33.4 g/dl (32.0-36.5); MEAN CORPUSCULAR VOLUME 92.4 fl (80.0-96.0); MONO # 0.7 10^3/uL (0.0-0.8); MONO % 6.8 % (0.0-5.0); NEUTROPHILS # 5.5 10^3/uL (1.8-7.7); NEUTROPHILS % 57.1 % (36.0-66.0); PLATELET COUNT, AUTOMATED 340 10^3/uL (150-450); RED BLOOD COUNT 4.73 10^6/uL (4.00-5.40); WHITE BLOOD COUNT 9.6 10^3/uL (4.0-10.0)
[2018-10-01 10:01] LABS: BILIRUBIN,TOTAL 0.5 MG/DL (0.2-1.0); CALCIUM LEVEL 9.8 MG/DL (8.8-10.2); CHOLESTEROL RISK RATIO 2.855 (<5); CREATININE FOR GFR 0.98 MG/DL (0.55-1.30); FREE T3 2.6 PG/ML (2.2-4.0); FREE T4 0.92 NG/DL (0.76-1.46); GLOMERULAR FILTRATION RATE 59.9 (>45); POTASSIUM SERUM 4.1 MEQ/L (3.5-5.1); THYROID STIMULATING HORMONE 1.47 uIU/ML (0.358-3.740)
[2018-10-01 10:13] LABS: HEMOGLOBIN A1c 6.1 %
== END ==
LOC: M WUC 08:36
PROVIDERS: ATTEND Physician Assistant
DX: E78.2 Mixed hyperlipidemia (principal); E04.1 Nontoxic single thyroid nodule; I10 Essential (primary) hypertension

== ENCOUNTER → 2018-10-28 | Outpatient (REF) | payer OTHER, MEDICARE | LOC: M LAB LCGH 15:21 | PROVIDERS: ATTEND Obstetrics & Gynecology | DX: Z12.4 Encounter for screening for malignant neoplasm of cervix (principal) ==

== ENCOUNTER → 2018-11-04 | Outpatient (CLI) | payer OTHER, MEDICARE ==
--- NOTE | 2018-11-21 00:25 | ECWPNPC ---
PATIENT NAME: POONAM LIVE : 1950 GENDER: FEMALE VISIT DATE: 11/04/2018 DISCHARGE DATE: 11/04/18 0944 VISIT LOCKED DATE TIME: PHYSICIAN: ANGE COE RESOURCE: ANGE COE REASON FOR APPOINTMENT 1. POST PROC HISTORY OF PRESENT ILLNESS HISTORY OF PRESENT ILLNESS: HERE FOR POST PROC. F/U.HAD BILAT. L4/5-L5/S1 LFBT ON 09/17/18.SHE IS DOING QUITE WELL.ATTENDING [facility],MASSAGE AND APPLICATION SUPPORT INTERN Q2 WEEKS.COMPLAINING OF LEFT LBP THAT GETS WORSE WITH PROLONGED SITTING OR OVER DOING.RATING PAIN VAS 2/10.MEDICATION MAKES HER GROGGY SO SHE ONLY TAKES AT NIGHT. PAIN THE PATIENT DESCRIBES THE PAIN... THE PATIENT DESCRIBES THE PAIN... FALL RISK SCREENING: SCREENING :NO FALLS REPORTED IN THE LAST YEAR CURRENT MEDICATIONS TAKING IBUPROFEN 800 MG TABLET 1 TABLET WITH FOOD OR MILK NEEDED ORALLY EVERY 8 HOURS NEEDED MDD3 TAKING ATORVASTATIN CALCIUM 10 MG TABLET 1 TABLET ORALLY BEFORE BEDTIME TAKING METOPROLOL SUCCINATE ER 50 MG TABLET EXTENDED RELEASE 24 HOUR 1 TABLET ORALLY BEFORE BEDTIME TAKING POLYETHYLENE GLYCOL - POWDER 1 PKT NEEDED ORALLY DAILY TAKING ADVIL 200 MG TABLET 1 TABLET WITH FOOD OR MILK NEEDED ORALLY TWO TIMES A DAY TAKING ADVIL PM 200-38 MG TABLET 2 TABLETS AT BEDTIME NEEDED ORALLY ONCE A DAY TAKING LORATADINE 10 MG TABLET 1 TABLET NEEDED ORALLY ONCE A DAY TAKING TIZANIDINE HCL 2 MG TABLET 1/2 TO 1 TAB ORALLY FOR SPASMS AND PAIN Q8H PRN TAKING AMLODIPINE BESYLATE 2.5 MG TABLET 1 TABLET ORALLY BEFORE BEDTIME TAKING MAGNESIUM CITRATE 1.745 GM/30ML SOLUTION 150 ML ORALLY ONCE TAKING GABAPENTIN 300 MG CAPSULE 1 CAPSULE ORALLY FOR PAIN BID NOT-TAKING OXYCODONE HCL 5 MG TABLET 1 TABLET NEEDED ORALLY TWICE A DAY NEEDED, NOTES: NOT TAKING IT VERY FREQUENTLY NOT-TAKING CARISOPRODOL 350 MG TABLET 1 TABLET NEEDED ORALLY THREE TIMES A DAY NEEDED NOT-TAKING GABAPENTIN 100 MG CAPSULE 1 CAPSULE ORALLY DAILY AT 1200 NOT-TAKING DOCUSATE SODIUM 100 MG CAPSULE 1 CAPSULE NEEDED ORALLY BID NOT-TAKING PANTOPRAZOLE SODIUM 40 MG TABLET DELAYED RELEASE 1 TABLET ORALLY ONCE A DAY NOT-TAKING SENNA-DOCUSATE SODIUM 8.6-50 MG TABLET 1 TABLET ORALLY BID NOT-TAKING HEPARIN SODIUM (PORCINE) 5000 UNIT/ML SOLUTION SUBCUTANEOUSLY EVERY 8 HOURS MEDICATION LIST REVIEWED AND RECONCILED WITH THE PATIENT PAST MEDICAL HISTORY HYPERTENSION DYSLIPIDEMIA RIGHT LOW BACK PAIN 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 2 BROTHERS - ACCIDENT KIDS. SOCIAL HISTORY GENERAL: TOBACCO USE ARE YOU A:NONSMOKER OTHERS AT HOME: SPOUSE. EDUCATION LEVEL OF EDUCATION:FINISHED COLLEGE DIET: REGULAR. LANGUAGE LANGUAGES SPOKEN:SENEGALESE RECREATIONAL DRUG USE DRUG USE?NO LEARNING BARRIERS / SPECIAL NEEDS BARRIERS TO LEARNING?NO HEARING IMPAIRED?NO VISION IMPAIRED?YES :CORRECTIVE LENSES COGNITIVELY IMPAIRED?NO READINESS TO LEARN?YES LEARNING PREFERENCES?NO LEARNING CAPABILITIES PRESENT?YES EMOTIONAL BARRIERS?NO SPECIAL DEVICES?YES USES A CANE OR A WALKER RETAIL PRICING COORDINATOR NEEDED?NO PAIN CLINIC PFS, CLERGY, PUBLIC HEALTH REFERRALS WAS THE PROVIDER NOTIFIED OF ANY PERTINENT INFO?YES HAS THE PATIENT BEEN EDUCATED REGARDING HIS/HER PLAN OF CARE?YES HAS THE PATIENT BEEN EDUCATED REGARDING PAIN, THE RISK FOR PAIN, THE IMPORTANCE OF EFFECTIVE PAIN MANAGEMENT, AND THE PAIN ASSESSMENT PROCESS?YES LATEX QUESTIONNAIRE LATEX ALLERGY : HAVE YOU EVER DEVELOPED ANY TYPE OF REACTION AFTER HANDLING LATEX PRODUCTS SUCH RUBBER GLOVES, CONDOMS, DIAPHRAGMS, BALLOONS, SOCKS, OR UNDERWEAR?NO LATEX ALLERGY : HAVE YOU EVER DEVELOPED ANY TYPE OF REACTION DURING OR AFTER DENTAL APPOINTMENT, VAGINAL/RECTAL EXAMINATION, SURGICAL PROCEDURE, OR ANY OTHER EXPOSURE?NO LATEX RISK : HAVE YOU EVER HAD ANY DIFFICULTY BREATHING OR HIVES AFTER EATING OR HANDLING ANY FRUITS, OR VEGETABLES; SUCH KIWI, BANANAS, STONE FRUITS, OR CHESTNUTSNO LATEX RISK : DO YOU HAVE A PREVIOUS PERSONAL HISTORY OF MORE THAN NINE SURGERIES, SPINA BIFIDA, OR REPEATED CATHERIZATIONS? YES - PLEASE INDICATE : > 9 SURGERIES LATEX RISK : ARE YOU FREQUENTLY EXPOSED TO LATEX PRODUCTS IN YOUR OCCUPATION?NO DATE ASKED : 11/04/2018 CAFFEINE CAFFEINE USE?YES OCCASSIONAL ADVANCE DIRECTIVE ADVANCE DIRECTIVE DISCUSSED WITH PATIENT:YES HCP - REMY STORMS () [id number] [employer] MAR[facility] STATUS: . OCCUPATION: RETIRED. REVIEWED WITH PATIENT 04/30/18 0989 JSREVIEWED WITH PATIENT 05/22/18 1215 LASREVIEWED WITH PATIENT 07/29/18 1136 JS. HOSPITALIZATION/MAJOR DIAGNOSTIC PROCEDURE SURGERY- RELATED BACK PAIN 03/2018 REVIEW OF SYSTEMS REVIEWED BY: PROVIDER: ANGE LAMAR . CONSTITUTIONAL: ANY CHANGE IN YOUR MEDICAL CONDITION? NO . CHILLS NO . FEVER NO . INFECTION: DO YOU HAVE NEW INFECTIONS? NO . DO YOU HAVE HISTORY OF MRSA? NO . MUSCULOSKELETAL: ANY NEW PATTERNS OF PAIN OR NUMBNESS? YES, DECREASED . GASTROENTEROLOGY: ANY NEW CHANGE IN BOWEL CONTROL? NO . GENITOURINARY: ANY NEW CHANGE IN BLADDER CONTROL? NO . IS THERE A CHANCE YOU COULD BE ? NO . HEMATOLOGY/LYMPH: DO YOU TAKE ANY BLOOD THINNERS? (FOR EXAMPLE- COUMADIN, PLAVIX, AGGRENOX, PLATEL, PRADAXA, OR XARELTO) NO . WHEN WAS YOUR LAST DOSE? DATE: TIME: . NEUROLOGY: HAVE YOU FALLEN IN THE PAST 12 MONTHS? YES, PT STATES THAT SHE WAS HOME, TRIPPED, NO INJURY, NO RPORT TO ED . ANY NEW EXTREMITY NUMBNESS OR WEAKNESS? NO . CARDIOLOGY: DO YOU HAVE A PACEMAKER OR DEFIBRILLATOR? NO . RESPIRATORY: HAVE YOU BEEN SICK IN THE PAST WEEK? NO . FEVER NO . FLU LIKE SYMPTOMS? NO . COUGH NO . INTEGUMENTARY: DO YOU HAVE ANY RASHES OR OPEN SORES? NO . ALLERGIC/IMMUNO: ARE YOU ALLERGIC TO IV DYE? NO . ANY NEW ALLERGIES? NO . PSYCHIATRIC: DO YOU HAVE THOUGHTS OF HURTING YOURSELF OR SOMEONE ELSE? NO . ARE YOU ABUSED, NEGLECTED, OR IN AN UNSAFE ENVIRONMENT? NO . ENDOCRINOLOGY: ARE YOU DIABETIC? NO . OTHER: DO YOU NEED ANY PRESCRIPTIONS? NO . IF YES, PLEASE LIST: ____ . ANY NEW PROBLEMS WITH YOUR MEDICATIONS? NO . WHEN DID YOU LAST EAT? ____ . WHEN DID YOU LAST DRINK? ____ . WHAT DID YOU LAST DRINK? ____ . NAME OF PERSON DRIVING YOU HOME? ____ . DO YOU HAVE ANY OTHER QUESTIONS OR CONCERNS NO . VITAL SIGNS WT 196.6 LBS, HT 68 IN, BMI 29.89 INDEX, BP 150/80 MM HG, HR 62 /MIN, RR 16 /MIN, TEMP 97.4 F, OXYGEN SAT % 98%, SAFE IN ENV? (Y/N) Y, NA INITIALS [place] 09:04. EXAMINATION GENERAL EXAMINATION: GENERAL AWAKE,ALERT ,PLEAASANT . PSYCH AFFECT NORMAL . LUNGS: LUNG CARR ARE CLEAR TO AUSCULTATION BILATERALLY. GOOD MOVEMENT OF AIR . HEART: S1, S2 IN A REGULAR RATE AND RHYTHM. NO SIGNIFICANT MURMURS, RUBS OR GALLOPS NOTED . LUMBAR SACRAL SPINEPALPATION:TENDER OVER LEFT SIJ. DIAGNOSTIC TESTS REVIEWED MRI L/S SPINE-04/18/18. 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 PROCEDURE CODES FA211 ESTABILISHED PATIENT [facility] CHARGE DISPOSITION & COMMUNICATION FOLLOW UP 2 MONTHS (REASON: LBP) ELECTRONICALLY SIGNED BY BRIANDA PETTY ON 11/20/2018 AT 08:23 AM EDT DISCLAIMER : THIS IS A VISIT SUMMARY EXTRACTED FROM THE [employer] [facility] [facility] [employer] [facility] CHART. IT IS NOT A COPY OF THE [employer] PROGRESS NOTE. BRINDA
== END ==
LOC: M PAIN 09:00
PROVIDERS: ATTEND Nurse Practitioner Family
DX: M48.07 Spinal stenosis, lumbosacral region (principal); M46.1 Sacroiliitis, not elsewhere classified; I10 Essential (primary) hypertension; E78.5 Hyperlipidemia, unspecified; Z88.1 Allergy status to other antibiotic agents; Z79.899 Other long term (current) drug therapy

== ENCOUNTER → 2018-12-16 | Outpatient (CLI) | payer OTHER, MEDICARE ==
[2018-12-16 13:09] LABS: ALT/SGPT 51 U/L (12-78); BILIRUBIN,TOTAL 0.8 MG/DL (0.2-1.0); BLOOD UREA NITROGEN 18 MG/DL (7-18); CALCIUM LEVEL 9.4 MG/DL (8.8-10.2); CARBON DIOXIDE LEVEL 27 MEQ/L (21-32); CHLORIDE LEVEL 104 MEQ/L (98-107); CREATININE FOR GFR 0.78 MG/DL (0.55-1.30); GLOMERULAR FILTRATION RATE > 60.0 (>45); GLUCOSE, FASTING 89 MG/DL (70-100); POTASSIUM SERUM 4.6 MEQ/L (3.5-5.1); SODIUM LEVEL 139 MEQ/L (136-145); TOTAL PROTEIN 6.7 GM/DL (6.4-8.2)
[2018-12-16 13:31] LABS: HEMOGLOBIN A1c 5.1 %
[2018-12-16 17:17] LABS: MALB URINE SIEMENS 10.7 MG/L; MAU/CREAT RATIO 8.4 MCG/MG (0.0-30.0)
== END ==
LOC: M WUC 10:35
PROVIDERS: ATTEND Physician Assistant
DX: R73.03 Prediabetes (principal)

== ENCOUNTER → 2019-01-13 | Outpatient (CLI) | payer OTHER ==
--- NOTE | 2019-01-15 09:47 | SLEEPHOME ---
DATE OF STUDY: 01/13/2019 ORDERED BY: Dr. Alvarenga Diagnostic home sleep testing was performed due to concern for the obstructive sleep apnea syndrome in this patient with a history of somnolence. For testing, a nocturnal T3 respiratory monitoring device was used. Continuous record was made of pulse, oxygen saturation, airflow, chest and abdominal strain and body position. 11 hours and 56 minutes of data were reviewed. There were 8 hours and 24 minutes marked as time in bed. During the interval marked time in bed, there were 210 respiratory events identified of 10 seconds in duration or greater for a respiratory event index of 25. The events were primarily obstructive. Baseline pulse rate 61, pulse rate ranged 37-95. Baseline saturation was 93%. Saturations fell as low as 75%. Testing was performed in both the supine and nonsupine positions. IMPRESSION: Abnormal home sleep testing with repetitive respiratory events and oxygen desaturations to 75% with a respiratory event index of 25 is consistent with the obstructive sleep apnea syndrome. RECOMMENDATION: The patient should be encouraged to undergo formal sleep evaluation.
== END ==
LOC: M SLEEP HO 09:46
PROVIDERS: ATTEND Internal Medicine Cardiovascular Disease
DX: R40.0 Somnolence (principal); G47.9 Sleep disorder, unspecified

== ENCOUNTER → 2019-02-13 | Outpatient (CLI) | payer OTHER, MEDICARE ==
--- NOTE | 2019-03-04 03:59 | ECWPNPC ---
PATIENT NAME: POONAM LIVE : 1950 GENDER: FEMALE VISIT DATE: 02/13/2019 DISCHARGE DATE: 02/13/19 1507 VISIT LOCKED DATE TIME: PHYSICIAN: ANGE COE RESOURCE: ANGE COE REASON FOR APPOINTMENT 1. REVIEW CARDIO REPORT HISTORY OF PRESENT ILLNESS HISTORY OF PRESENT ILLNESS: HERE FOR F/U OF CHRONIC LBP ANT TO REVIEW CARDIAC WORKUP PER DR MARTIN.HER LBP HAS BEEN WELL CONTROLLED WITH MASSAGE,CHIROPRACTIC AND EXCERSISE OVER THE PAST FEW MONTHS.RATING PAIN VAS 3/10.WILL BE HAVING A CARDIAC CATHETERIZATION IN NEAR FUTURE. PAIN THE PATIENT DESCRIBES THE PAIN... FALL RISK SCREENING: SCREENING :NO FALLS REPORTED IN THE LAST YEAR CURRENT MEDICATIONS TAKING IBUPROFEN 800 MG TABLET 1 TABLET WITH FOOD OR MILK NEEDED ORALLY EVERY 8 HOURS NEEDED MDD3 TAKING ATORVASTATIN CALCIUM 10 MG TABLET 1 TABLET ORALLY BEFORE BEDTIME TAKING METOPROLOL SUCCINATE ER 50 MG TABLET EXTENDED RELEASE 24 HOUR 1 TABLET ORALLY BEFORE BEDTIME TAKING ADVIL 200 MG TABLET 1 TABLET WITH FOOD OR MILK NEEDED ORALLY TWO TIMES A DAY TAKING ADVIL PM 200-38 MG TABLET 2 TABLETS AT BEDTIME NEEDED ORALLY ONCE A DAY TAKING LORATADINE 10 MG TABLET 1 TABLET NEEDED ORALLY ONCE A DAY TAKING TIZANIDINE HCL 2 MG TABLET 1/2 TO 1 TAB ORALLY FOR SPASMS AND PAIN Q8H PRN TAKING AMLODIPINE BESYLATE 2.5 MG TABLET 1 TABLET ORALLY BEFORE BEDTIME TAKING MAGNESIUM CITRATE 1.745 GM/30ML SOLUTION 150 ML ORALLY ONCE TAKING GABAPENTIN 300 MG CAPSULE 1 CAPSULE ORALLY FOR PAIN BID TAKING ASPIR-LOW 81 MG TABLET DELAYED RELEASE 1 TABLET ORALLY ONCE A DAY NOT-TAKING OXYCODONE HCL 5 MG TABLET 1 TABLET NEEDED ORALLY TWICE A DAY NEEDED, NOTES: NOT TAKING IT VERY FREQUENTLY NOT-TAKING CARISOPRODOL 350 MG TABLET 1 TABLET NEEDED ORALLY THREE TIMES A DAY NEEDED NOT-TAKING GABAPENTIN 100 MG CAPSULE 1 CAPSULE ORALLY DAILY AT 1200 NOT-TAKING DOCUSATE SODIUM 100 MG CAPSULE 1 CAPSULE NEEDED ORALLY BID NOT-TAKING PANTOPRAZOLE SODIUM 40 MG TABLET DELAYED RELEASE 1 TABLET ORALLY ONCE A DAY NOT-TAKING SENNA-DOCUSATE SODIUM 8.6-50 MG TABLET 1 TABLET ORALLY BID NOT-TAKING HEPARIN SODIUM (PORCINE) 5000 UNIT/ML SOLUTION SUBCUTANEOUSLY EVERY 8 HOURS DISCONTINUED POLYETHYLENE GLYCOL - POWDER 1 PKT NEEDED ORALLY DAILY MEDICATION LIST REVIEWED AND RECONCILED WITH THE PATIENT PAST MEDICAL HISTORY HYPERTENSION DYSLIPIDEMIA RIGHT LOW BACK PAIN 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 2 BROTHERS - ACCIDENT KIDS. SOCIAL HISTORY GENERAL: TOBACCO USE ARE YOU A:NONSMOKER OTHERS AT HOME: SPOUSE. EDUCATION LEVEL OF EDUCATION:FINISHED COLLEGE DIET: REGULAR. LANGUAGE LANGUAGES SPOKEN:COOK ISLANDER RECREATIONAL DRUG USE DRUG USE?NO LEARNING BARRIERS / SPECIAL NEEDS BARRIERS TO LEARNING?NO HEARING IMPAIRED?NO VISION IMPAIRED?YES COGNITIVELY IMPAIRED?NO :CORRECTIVE LENSES READINESS TO LEARN?YES LEARNING PREFERENCES?NO LEARNING CAPABILITIES PRESENT?YES EMOTIONAL BARRIERS?NO SPECIAL DEVICES?YES USES A CANE OR A WALKER PIPED POCKET MACHINE OPERATOR NEEDED?NO PAIN CLINIC PFS, CLERGY, PUBLIC HEALTH REFERRALS WAS THE PROVIDER NOTIFIED OF ANY PERTINENT INFO?YES HAS THE PATIENT BEEN EDUCATED REGARDING HIS/HER PLAN OF CARE?YES HAS THE PATIENT BEEN EDUCATED REGARDING PAIN, THE RISK FOR PAIN, THE IMPORTANCE OF EFFECTIVE PAIN MANAGEMENT, AND THE PAIN ASSESSMENT PROCESS?YES LATEX QUESTIONNAIRE LATEX ALLERGY : HAVE YOU EVER DEVELOPED ANY TYPE OF REACTION AFTER HANDLING LATEX PRODUCTS SUCH RUBBER GLOVES, CONDOMS, DIAPHRAGMS, BALLOONS, SOCKS, OR UNDERWEAR?NO LATEX ALLERGY : HAVE YOU EVER DEVELOPED ANY TYPE OF REACTION DURING OR AFTER DENTAL APPOINTMENT, VAGINAL/RECTAL EXAMINATION, SURGICAL PROCEDURE, OR ANY OTHER EXPOSURE?NO DATE ASKED : 11/04/2018 LATEX RISK : HAVE YOU EVER HAD ANY DIFFICULTY BREATHING OR HIVES AFTER EATING OR HANDLING ANY FRUITS, OR VEGETABLES; SUCH KIWI, BANANAS, STONE FRUITS, OR CHESTNUTSNO LATEX RISK : DO YOU HAVE A PREVIOUS PERSONAL HISTORY OF MORE THAN NINE SURGERIES, SPINA BIFIDA, OR REPEATED CATHERIZATIONS? YES - PLEASE INDICATE : > 9 SURGERIES LATEX RISK : ARE YOU FREQUENTLY EXPOSED TO LATEX PRODUCTS IN YOUR OCCUPATION?NO CAFFEINE CAFFEINE USE?YES OCCASSIONAL ADVANCE DIRECTIVE ADVANCE DIRECTIVE DISCUSSED WITH PATIENT:YES HCP - REMY LIVE () CHEONDOISM [id number] GNOSTICIST MARITAL STATUS: . OCCUPATION: RETIRED. REVIEWED WITH PATIENT 04/30/18 0919 JSREVIEWED WITH PATIENT 05/22/18 1215 LASREVIEWED WITH PATIENT 07/29/18 1136 JS. HOSPITALIZATION/MAJOR DIAGNOSTIC PROCEDURE SURGERY- RELATED BACK PAIN 03/2018 REVIEW OF SYSTEMS REVIEWED BY: PROVIDER: ANGE LAMAR . CONSTITUTIONAL: ANY CHANGE IN YOUR MEDICAL CONDITION? NEW PCP DR FRIEDA ALVARADO. PT HAD NUCLEAR STRESS TEST ABND IS GOING TO HAVE HEART CATH DONE . CHILLS NO . FEVER NO . INFECTION: DO YOU HAVE NEW INFECTIONS? NO . DO YOU HAVE HISTORY OF MRSA? NO . MUSCULOSKELETAL: ANY NEW PATTERNS OF PAIN OR NUMBNESS? NO . GASTROENTEROLOGY: ANY NEW CHANGE IN BOWEL CONTROL? NO . GENITOURINARY: ANY NEW CHANGE IN BLADDER CONTROL? NO . IS THERE A CHANCE YOU COULD BE ? NO . HEMATOLOGY/LYMPH: DO YOU TAKE ANY BLOOD THINNERS? (FOR EXAMPLE- COUMADIN, PLAVIX, AGGRENOX, PLATEL, PRADAXA, OR XARELTO) NO . WHEN WAS YOUR LAST DOSE? DATE: TIME: . NEUROLOGY: HAVE YOU FALLEN IN THE PAST 12 MONTHS? NO . ANY NEW EXTREMITY NUMBNESS OR WEAKNESS? NO . CARDIOLOGY: DO YOU HAVE A PACEMAKER OR DEFIBRILLATOR? NO . RESPIRATORY: HAVE YOU BEEN SICK IN THE PAST WEEK? NO . FEVER NO . FLU LIKE SYMPTOMS? NO . COUGH NO . INTEGUMENTARY: DO YOU HAVE ANY RASHES OR OPEN SORES? NO . ALLERGIC/IMMUNO: ARE YOU ALLERGIC TO IV DYE? NO . ANY NEW ALLERGIES? NO . PSYCHIATRIC: DO YOU HAVE THOUGHTS OF HURTING YOURSELF OR SOMEONE ELSE? NO . ARE YOU ABUSED, NEGLECTED, OR IN AN UNSAFE ENVIRONMENT? NO . ENDOCRINOLOGY: ARE YOU DIABETIC? NO . OTHER: DO YOU NEED ANY PRESCRIPTIONS? NO . IF YES, PLEASE LIST: ____ . ANY NEW PROBLEMS WITH YOUR MEDICATIONS? NO . WHEN DID YOU LAST EAT? ____ . WHEN DID YOU LAST DRINK? ____ . WHAT DID YOU LAST DRINK? ____ . NAME OF PERSON DRIVING YOU HOME? ____ . DO YOU HAVE ANY OTHER QUESTIONS OR CONCERNS SUPER FLU VACCINE RECEIVED 2 WEEKS AGO . VITAL SIGNS WT 198.4 LBS, HT 68 IN, BMI 30.16 INDEX, BP 159/87 MM HG, HR 71 /MIN, RR 16 /MIN, TEMP 97.3 F, OXYGEN SAT % 97%, NA INITIALS SC 13:49. EXAMINATION GENERAL EXAMINATION: GENERALAWAKE,ALERT ,PLEAASANT . PSYCHAFFECT NORMAL . LUNGS:LUNG CARR ARE CLEAR TO AUSCULTATION BILATERALLY. GOOD MOVEMENT OF AIR . HEART:S1, S2 IN A REGULAR RATE AND RHYTHM. NO SIGNIFICANT MURMURS, RUBS OR GALLOPS NOTED . 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 PROCEDURE CODES FA211 ESTABILISHED PATIENT [facility] CHARGE DISPOSITION & COMMUNICATION FOLLOW UP 6 MONTHS ELECTRONICALLY SIGNED BY BRIANDA PETTY ON 03/03/2019 AT 09:08 AM EST DISCLAIMER : THIS IS A VISIT SUMMARY EXTRACTED FROM THE [employer] CHART. IT IS NOT A COPY OF THE [employer] PROGRESS NOTE. BRINDA
== END ==
LOC: M PAIN 13:15
PROVIDERS: ATTEND Nurse Practitioner Family
DX: M48.07 Spinal stenosis, lumbosacral region (principal); I10 Essential (primary) hypertension; Z79.82 Long term (current) use of aspirin; Z79.899 Other long term (current) drug therapy; Z88.1 Allergy status to other antibiotic agents; Z88.2 Allergy status to sulfonamides
CPT/HCPCS: 36415; 80048; 85027; G0463

== ENCOUNTER → 2019-02-13 | Outpatient (CLI) | payer OTHER, MEDICARE ==
[2019-02-13 20:05] LABS: HEMATOCRIT 44.4 % (36.0-47.0); HEMOGLOBIN 14.1 g/dl (12.0-15.5); MEAN CORPUSCULAR HEMOGLOBIN 30.5 pg (27.0-33.0); MEAN CORPUSCULAR HGB CONC 31.8 g/dl (32.0-36.5); MEAN CORPUSCULAR VOLUME 95.9 fl (80.0-96.0); PLATELET COUNT, AUTOMATED 303 10^3/uL (150-450); RED BLOOD COUNT 4.63 10^6/uL (4.00-5.40); WHITE BLOOD COUNT 6.7 10^3/uL (4.0-10.0)
[2019-02-13 20:09] LABS: BLOOD UREA NITROGEN 15 MG/DL (7-18); CALCIUM LEVEL 9.4 MG/DL (8.8-10.2); CARBON DIOXIDE LEVEL 25 MEQ/L (21-32); CHLORIDE LEVEL 108 MEQ/L (98-107); CREATININE FOR GFR 0.97 MG/DL (0.55-1.30); GLOMERULAR FILTRATION RATE > 60.0 (>39); GLUCOSE, FASTING 108 MG/DL (70-100); POTASSIUM SERUM 4.4 MEQ/L (3.5-5.1); SODIUM LEVEL 140 MEQ/L (136-145)
== END ==
LOC: M WUC 15:41
PROVIDERS: ATTEND Internal Medicine Cardiovascular Disease
DX: I25.10 Atherosclerotic heart disease of native coronary artery without angina pectoris (principal); I10 Essential (primary) hypertension

== ENCOUNTER → 2019-09-01 | Outpatient (CLI) | payer OTHER, MEDICARE ==
--- NOTE | 2019-09-03 04:20 | ECWPNPC ---
PATIENT NAME: POONAM LIVE : 1950 GENDER: FEMALE VISIT DATE: 09/01/2019 DISCHARGE DATE: 09/01/19939 VISIT LOCKED DATE TIME: PHYSICIAN: ANGE COE RESOURCE: ANGE COE REASON FOR APPOINTMENT 1. BACK; HISTORY OF PRESENT ILLNESS GENERAL: PATIENT IS AGREEABLE TO TELEMED VISIT VIA ZOOM. PAIN IS LOCATED IN THE LOWER BACK, LEFT HIP AND RIGHT LEG. WAS DOING VERY WELL WITH PLANT ECOLOGIST, MASSAGE, AND POOL THERAPY UNTIL COVID 19 CRISIS. PATIENT FEELS HER PAIN HAS RETURNED. FINDING IT DIFFICULT TO WALK AT TIMES AND DESCRIBES A BALANCE ISSUE. USING TIZANIDINE 2 MG WHEN NECESSARY FOR SEVERE PAIN EPISODES. RESTARTED GABAPENTIN. REVIEWED MRI AND DISCUSSED TREATMENT OPTIONS. -. FALL RISK SCREENING: SCREENING :ONE FALL WITHOUT INJURY IN THE PAST YEAR PAIN SCREENING: PATIENT HAS A COMPLAINT OF ACUTE OR CHRONIC PAIN :YES 08/29/19 INTENSITY OF PAIN (SCALE OF 1 TO 10):5 WHAT DOES YOUR PAIN FEEL LIKE:ACHING, SHARP PAIN IS INCREASED BY: SITTING, WALKING ON UNEVEN SURFACE PAIN IS DECREASED BY: REST, HEAT NURSING NOTE: -. PAIN CENTER INTAKE QUESTIONS: DO YOU HAVE A HISTORY OF MRSA? :NO DO YOU TAKE A BLOOD THINNERS? :NO DO YOU HAVE ANY BLEEDING DISORDERS? :NO ANY NEW NUMBNESS OR WEAKNESS IN YOUR LEGS OR ARMS? :YES ARMS AND HANDS ANY PACEMAKER,DEFIBRILLATOR, OR DORSAL COLUMN STIMULATOR? :NO DO YOU HAVE ANY RASHES OR OPEN SORES? :NO ARE YOU ALLERGIC TO IV DYE? :NO ARE YOU DIABETIC? :NO ANY NEW PROBLEMS WITH YOUR MEDICATIONS? :NO HAVE YOU RECEIVED A VACCINE IN THE PAST 30 DAYS? :NO DO YOU PLAN TO RECEIVE A VACCINE IN THE NEXT 21 DAYS? :NO DO YOU NEED ANY PRESCRIPTION? :NO DO YOU TAKE ANY IMMUNOSUPPRESSIVE MEDICATIONS? :NO CURRENT MEDICATIONS TAKING IBUPROFEN 800 MG TABLET 1 TABLET WITH FOOD OR MILK NEEDED ORALLY EVERY 8 HOURS NEEDED MDD3 TAKING ATORVASTATIN CALCIUM 10 MG TABLET 1 TABLET ORALLY BEFORE BEDTIME TAKING METOPROLOL SUCCINATE ER 50 MG TABLET EXTENDED RELEASE 24 HOUR 1 TABLET ORALLY BEFORE BEDTIME TAKING ADVIL 200 MG TABLET 1 TABLET WITH FOOD OR MILK NEEDED ORALLY TWO TIMES A DAY TAKING ADVIL PM 200-38 MG TABLET 2 TABLETS AT BEDTIME NEEDED ORALLY ONCE A DAY TAKING LORATADINE 10 MG TABLET 1 TABLET NEEDED ORALLY ONCE A DAY TAKING TIZANIDINE HCL 2 MG TABLET 1/2 TO 1 TAB ORALLY FOR SPASMS AND PAIN Q8H PRN TAKING MAGNESIUM CITRATE 1.745 GM/30ML SOLUTION 150 ML ORALLY ONCE TAKING GABAPENTIN 300 MG CAPSULE 1 CAPSULE ORALLY FOR PAIN BID NOT-TAKING AMLODIPINE BESYLATE 2.5 MG TABLET 1 TABLET ORALLY BEFORE BEDTIME NOT-TAKING ASPIR-LOW 81 MG TABLET DELAYED RELEASE 1 TABLET ORALLY ONCE A DAY NOT-TAKING OXYCODONE HCL 5 MG TABLET 1 TABLET NEEDED ORALLY TWICE A DAY NEEDED, NOTES: NOT TAKING IT VERY FREQUENTLY NOT-TAKING CARISOPRODOL 350 MG TABLET 1 TABLET NEEDED ORALLY THREE TIMES A DAY NEEDED NOT-TAKING GABAPENTIN 100 MG CAPSULE 1 CAPSULE ORALLY DAILY AT 1200 NOT-TAKING DOCUSATE SODIUM 100 MG CAPSULE 1 CAPSULE NEEDED ORALLY BID NOT-TAKING PANTOPRAZOLE SODIUM 40 MG TABLET DELAYED RELEASE 1 TABLET ORALLY ONCE A DAY NOT-TAKING SENNA-DOCUSATE SODIUM 8.6-50 MG TABLET 1 TABLET ORALLY BID NOT-TAKING HEPARIN SODIUM (PORCINE) 5000 UNIT/ML SOLUTION SUBCUTANEOUSLY EVERY 8 HOURS MEDICATION LIST REVIEWED AND RECONCILED WITH THE PATIENT PAST MEDICAL HISTORY HYPERTENSION DYSLIPIDEMIA RIGHT LOW BACK PAIN 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 2 BROTHERS - ACCIDENT KIDS. SOCIAL HISTORY GENERAL: TOBACCO USE ARE YOU A:NONSMOKER LATEX QUESTIONNAIRE LATEX ALLERGY : HAVE YOU EVER DEVELOPED ANY TYPE OF REACTION AFTER HANDLING LATEX PRODUCTS SUCH RUBBER GLOVES, CONDOMS, DIAPHRAGMS, BALLOONS, SOCKS, OR UNDERWEAR?NO LATEX ALLERGY : HAVE YOU EVER DEVELOPED ANY TYPE OF REACTION DURING OR AFTER DENTAL APPOINTMENT, VAGINAL/RECTAL EXAMINATION, SURGICAL PROCEDURE, OR ANY OTHER EXPOSURE?NO DATE ASKED : 11/04/2018 LATEX RISK : HAVE YOU EVER HAD ANY DIFFICULTY BREATHING OR HIVES AFTER EATING OR HANDLING ANY FRUITS, OR VEGETABLES; SUCH KIWI, BANANAS, STONE FRUITS, OR CHESTNUTSNO LATEX RISK : DO YOU HAVE A PREVIOUS PERSONAL HISTORY OF MORE THAN NINE SURGERIES, SPINA BIFIDA, OR REPEATED CATHERIZATIONS? YES - PLEASE INDICATE : > 9 SURGERIES LATEX RISK : ARE YOU FREQUENTLY EXPOSED TO LATEX PRODUCTS IN YOUR OCCUPATION?NO RECREATIONAL DRUG USE DRUG USE?NO CAFFEINE CAFFEINE USE?YES OCCASSIONAL CHRISTIAN [id number] JEW LANGUAGE LANGUAGES SPOKEN:ZIMBABWEAN EDUCATION LEVEL OF EDUCATION:FINISHED COLLEGE LEARNING BARRIERS / SPECIAL NEEDS BARRIERS TO LEARNING?NO HEARING IMPAIRED?NO VISION IMPAIRED?YES COGNITIVELY IMPAIRED?NO :CORRECTIVE LENSES READINESS TO LEARN?YES LEARNING PREFERENCES?NO LEARNING CAPABILITIES PRESENT?YES EMOTIONAL BARRIERS?NO SPECIAL DEVICES?YES USES A CANE OR A WALKER INSPECTOR RADAR AND ELECTRONICS NEEDED?NO OCCUPATION: RETIRED. DIET: REGULAR. MARITAL STATUS: . OTHERS AT HOME: SPOUSE. PAIN CLINIC PFS, CLERGY, PUBLIC HEALTH REFERRALS WAS THE PROVIDER NOTIFIED OF ANY PERTINENT INFO?YES HAS THE PATIENT BEEN EDUCATED REGARDING HIS/HER PLAN OF CARE?YES HAS THE PATIENT BEEN EDUCATED REGARDING PAIN, THE RISK FOR PAIN, THE IMPORTANCE OF EFFECTIVE PAIN MANAGEMENT, AND THE PAIN ASSESSMENT PROCESS?YES ADVANCE DIRECTIVE ADVANCE DIRECTIVE DISCUSSED WITH PATIENT:YES HCP - REMY LIVE () REVIEWED WITH PATIENT 04/30/18 0945 JSREVIEWED WITH PATIENT 05/22/18 1215 LASREVIEWED WITH PATIENT 07/29/18 1136 JS. HOSPITALIZATION/MAJOR DIAGNOSTIC PROCEDURE SURGERY- RELATED BACK PAIN 03/2018 REVIEW OF SYSTEMS CONSTITUTIONAL: ANY RECENT FEVER OR ILLNESS NO . CHILLS NO . GASTROENTEROLOGY: BOWEL INCONTINENCE NO . ANY NEW CHANGE IN BOWEL CONTROL? NO . ABDOMINAL PAIN NO . CONSTIPATION NO . GENITOURINARY: ANY NEW CHANGE IN BLADDER CONTROL? NO . IS THERE A CHANCE YOU COULD BE ? NO . URINARY INCONTINENCE NO . CARDIOLOGY: CHEST PRESSURE NO . CHEST PAIN NO . RESPIRATORY: COUGH NO . SHORTNESS OF BREATH NO . EXAMINATION GENERAL EXAMINATION: GENERALNO ACUTE DISTRESS, WELL NOURISHED AND HYDRATED. PSYCHAPPROPRIATE MOOD AND AFFECT . FACE:UNREMARKABLE. ASSESSMENTS LUMBOSACRAL SPINAL STENOSIS - M48.07 (PRIMARY) TREATMENT LUMBOSACRAL SPINAL STENOSIS REFILL TIZANIDINE HCL TABLET, 2 MG, 1/2 TO 1 TAB, ORALLY FOR SPASMS AND PAIN, Q8H PRN, 30 DAY(S), 45, REFILLS 2 CONTINUE GABAPENTIN CAPSULE, 300 MG, 1 CAPSULE, ORALLY FOR PAIN, BID NOTES: PATIENT WILL BE STARTING PLANT ECOLOGIST AND MASSAGE THERAPY AGAIN. SHE WOULD LIKE TO SEE HOW THESE MODALITIES HELP WITH HER PAIN. VIRTUAL VISIT IN 6 WEEKS AT PAIN CLINIC IS SCHEDULED. SHE MAY CONSIDER INJECTION THERAPY IF NO IMPROVEMENT AT THAT POINT. SHE IS ALSO INTERESTED IN NERVE CONDUCTION STUDIES OF THE LOWER EXTREMITIES. TOTAL TIME SPENT DURING TELEMED VISIT WAS APPROXIMATELY 12 MINUTES. DISPOSITION & COMMUNICATION FOLLOW UP 6 WEEKS TELEMED VISIT (REASON: LOW BACK PAIN) ELECTRONICALLY SIGNED BY BRIANDA PETTY ON 09/02/2019 AT 02:33 PM EDT DISCLAIMER : THIS IS A VISIT SUMMARY EXTRACTED FROM THE [employer] CHART. IT IS NOT A COPY OF THE [employer] PROGRESS NOTE. BRINDA
== END ==
LOC: M PAIN 09:30
PROVIDERS: ATTEND Nurse Practitioner Family
DX: M48.07 Spinal stenosis, lumbosacral region (principal)

== ENCOUNTER → 2019-10-06 | Outpatient (CLI) | payer OTHER, MEDICARE ==
--- NOTE | 2019-10-11 03:00 | ECWPNPC ---
PATIENT NAME: POONAM LIVE : 1950 GENDER: FEMALE VISIT DATE: 10/06/2019 DISCHARGE DATE: 10/06/19 1032 VISIT LOCKED DATE TIME: PHYSICIAN: ANGE COE RESOURCE: ANGE COE REASON FOR APPOINTMENT 1. LOW BACK PAIN 2. VIA ZOOM HISTORY OF PRESENT ILLNESS GENERAL: PATIENT IS AGREEABLE TO TELEMED VISIT VIA ZOOM. CONTINUES WITH RIGHT SIDED LOW BACK PAIN. ATTENDING WEAPONS SYSTEM INSTRUMENT MECHANIC AND MASSAGE THERAPY. SHE WOULD LIKE TO CONTINUE WITH THIS TYPE OF THERAPY. SHE IS CONCERNED ABOUT STEROID INJECTIONS AND DECREASED IMMUNITY POST PROCEDURE. SHE HAS RESPONDED WELL TO RIGHT SIJ INJECTION AND LUMBAR THERAPEUTIC FACET BLOCKS IN THE PAST. -. FALL RISK SCREENING: SCREENING :NO FALLS REPORTED IN THE LAST YEAR PAIN SCREENING: PATIENT HAS A COMPLAINT OF ACUTE OR CHRONIC PAIN :YES LOCATION OF PAIN:RIGHT HIP BUTTOCK AREA INTENSITY OF PAIN (SCALE OF 1 TO 10):6 WHAT DOES YOUR PAIN FEEL LIKE:BURNING, CONTINOUS, TENDER DURATION:RHYTHMIC PAIN IS INCREASED BY:OTHERS SITTING MAKES IT WORSE PAIN IS DECREASED BY:OTHERS NURSING NOTE: -. CURRENT MEDICATIONS TAKING TIZANIDINE HCL 2 MG TABLET 1/2 TO 1 TAB ORALLY FOR SPASMS AND PAIN Q8H PRN TAKING GABAPENTIN 300 MG CAPSULE 1 CAPSULE ORALLY FOR PAIN BID TAKING IBUPROFEN 800 MG TABLET 1 TABLET WITH FOOD OR MILK NEEDED ORALLY EVERY 8 HOURS NEEDED MDD3 TAKING ATORVASTATIN CALCIUM 10 MG TABLET 1 TABLET ORALLY BEFORE BEDTIME TAKING METOPROLOL SUCCINATE ER 50 MG TABLET EXTENDED RELEASE 24 HOUR 1 TABLET ORALLY BEFORE BEDTIME TAKING LORATADINE 10 MG TABLET 1 TABLET NEEDED ORALLY ONCE A DAY TAKING RAMIPRIL 5 MG CAPSULE ORALLY NOT-TAKING ADVIL 200 MG TABLET 1 TABLET WITH FOOD OR MILK NEEDED ORALLY TWO TIMES A DAY NOT-TAKING ADVIL PM 200-38 MG TABLET 2 TABLETS AT BEDTIME NEEDED ORALLY ONCE A DAY NOT-TAKING MAGNESIUM CITRATE 1.745 GM/30ML SOLUTION 150 ML ORALLY ONCE NOT-TAKING AMLODIPINE BESYLATE 2.5 MG TABLET 1 TABLET ORALLY BEFORE BEDTIME NOT-TAKING ASPIR-LOW 81 MG TABLET DELAYED RELEASE 1 TABLET ORALLY ONCE A DAY NOT-TAKING OXYCODONE HCL 5 MG TABLET 1 TABLET NEEDED ORALLY TWICE A DAY NEEDED, NOTES: NOT TAKING IT VERY FREQUENTLY NOT-TAKING CARISOPRODOL 350 MG TABLET 1 TABLET NEEDED ORALLY THREE TIMES A DAY NEEDED NOT-TAKING GABAPENTIN 100 MG CAPSULE 1 CAPSULE ORALLY DAILY AT 1200 NOT-TAKING DOCUSATE SODIUM 100 MG CAPSULE 1 CAPSULE NEEDED ORALLY BID NOT-TAKING PANTOPRAZOLE SODIUM 40 MG TABLET DELAYED RELEASE 1 TABLET ORALLY ONCE A DAY NOT-TAKING SENNA-DOCUSATE SODIUM 8.6-50 MG TABLET 1 TABLET ORALLY BID NOT-TAKING HEPARIN SODIUM (PORCINE) 5000 UNIT/ML SOLUTION SUBCUTANEOUSLY EVERY 8 HOURS MEDICATION LIST REVIEWED AND RECONCILED WITH THE PATIENT PAST MEDICAL HISTORY HYPERTENSION DYSLIPIDEMIA RIGHT LOW BACK PAIN 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 2 BROTHERS - ACCIDENT KIDS. SOCIAL HISTORY GENERAL: TOBACCO USE ARE YOU A:NONSMOKER LATEX QUESTIONNAIRE LATEX ALLERGY : HAVE YOU EVER DEVELOPED ANY TYPE OF REACTION AFTER HANDLING LATEX PRODUCTS SUCH RUBBER GLOVES, CONDOMS, DIAPHRAGMS, BALLOONS, SOCKS, OR UNDERWEAR?NO LATEX ALLERGY : HAVE YOU EVER DEVELOPED ANY TYPE OF REACTION DURING OR AFTER DENTAL APPOINTMENT, VAGINAL/RECTAL EXAMINATION, SURGICAL PROCEDURE, OR ANY OTHER EXPOSURE?NO DATE ASKED : 11/04/2018 LATEX RISK : HAVE YOU EVER HAD ANY DIFFICULTY BREATHING OR HIVES AFTER EATING OR HANDLING ANY FRUITS, OR VEGETABLES; SUCH KIWI, BANANAS, STONE FRUITS, OR CHESTNUTSNO LATEX RISK : DO YOU HAVE A PREVIOUS PERSONAL HISTORY OF MORE THAN NINE SURGERIES, SPINA BIFIDA, OR REPEATED CATHERIZATIONS? YES - PLEASE INDICATE : > 9 SURGERIES LATEX RISK : ARE YOU FREQUENTLY EXPOSED TO LATEX PRODUCTS IN YOUR OCCUPATION?NO RECREATIONAL DRUG USE DRUG USE?NO CAFFEINE CAFFEINE USE?YES OCCASSIONAL SABIANIST [id number] LANGUAGE LANGUAGES SPOKEN:ROMANSH EDUCATION LEVEL OF EDUCATION:FINISHED COLLEGE LEARNING BARRIERS / SPECIAL NEEDS BARRIERS TO LEARNING?NO HEARING IMPAIRED?NO VISION IMPAIRED?YES COGNITIVELY IMPAIRED?NO :CORRECTIVE LENSES READINESS TO LEARN?YES LEARNING PREFERENCES?NO LEARNING CAPABILITIES PRESENT?YES EMOTIONAL BARRIERS?NO SPECIAL DEVICES?YES USES A CANE OR A WALKER PLANT OPERATOR CONTROL ROOM OPERATOR NEEDED?NO OCCUPATION: RETIRED. DIET: REGULAR. MARITAL STATUS: . OTHERS AT HOME: SPOUSE. PAIN CLINIC PFS, CLERGY, PUBLIC HEALTH REFERRALS WAS THE PROVIDER NOTIFIED OF ANY PERTINENT INFO?YES HAS THE PATIENT BEEN EDUCATED REGARDING HIS/HER PLAN OF CARE?YES HAS THE PATIENT BEEN EDUCATED REGARDING PAIN, THE RISK FOR PAIN, THE IMPORTANCE OF EFFECTIVE PAIN MANAGEMENT, AND THE PAIN ASSESSMENT PROCESS?YES ADVANCE DIRECTIVE ADVANCE DIRECTIVE DISCUSSED WITH PATIENT:YES HCP - REMY LIVE () REVIEWED WITH PATIENT 04/30/18 0985 JSREVIEWED WITH PATIENT 05/22/18 1215 LASREVIEWED WITH PATIENT 07/29/18 1136 JS. HOSPITALIZATION/MAJOR DIAGNOSTIC PROCEDURE SURGERY- RELATED BACK PAIN 03/2018 REVIEW OF SYSTEMS CONSTITUTIONAL: ANY RECENT FEVER NO . CHILLS NO . WEIGHT CHANGE OF UNKNOWN REASONS NO . GASTROENTEROLOGY: NEW UNEXPLAINABLE CHANGES IN BOWEL CONTROL NO . CONSTIPATION NO . GENITOURINARY: ANY NEW CHANGE IN BLADDER CONTROL? NO . NEUROLOGY: NEW ONSET DIZZINESS OR NEUROLOGICAL CHANGES NOT MENTIONED NO . NEW NUMBNESS OR PAIN PATTERNS NOT MENTIONED AND PERTINENT TO TODAY'S VISIT NO . CARDIOLOGY: NEW CHEST PRESSURE NO . NEW CHEST PAIN NO . RESPIRATORY: UNEXPLAINABLE COUGH NO . NEW SHORTNESS OF BREATH NO . EXAMINATION GENERAL EXAMINATION: GENERALNO ACUTE DISTRESS, WELL NOURISHED AND HYDRATED. PSYCHAPPROPRIATE MOOD AND AFFECT . FACE:UNREMARKABLE. 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 PATIENT WILL CALL US IF HER CONDITION CHANGES AND IF SHE WOULD LIKE TO CONSIDER INJECTIONS. TOTAL TIME SPENT DURING TELEMED VISIT WAS APPROXIMATELY 12 MINUTES. DISPOSITION & COMMUNICATION FOLLOW UP PATIENT WILL CALL US WHEN NEEDED FOR APPOINTMENT (REASON: RIGHT LOW BACK PAIN) ELECTRONICALLY SIGNED BY BRIANDA PETTY ON 10/10/2019 AT 08:49 AM EDT DISCLAIMER : THIS IS A VISIT SUMMARY EXTRACTED FROM THE [employer] CHART. IT IS NOT A COPY OF THE [employer] PROGRESS NOTE. BRINDA
== END ==
LOC: M PAIN 14:15 → M TMPAIN 14:15
PROVIDERS: ATTEND Nurse Practitioner Family
DX: M48.07 Spinal stenosis, lumbosacral region (principal); M46.1 Sacroiliitis, not elsewhere classified

== ENCOUNTER → 2019-10-13 | Outpatient (CLI) | payer OTHER, MEDICARE ==
[2019-10-13 12:46] LABS: HEMOGLOBIN A1c 5.6 %
[2019-10-13 12:49] LABS: ALBUMIN 4.2 GM/DL (3.2-5.2); ALT/SGPT 76 U/L (12-78); BILIRUBIN,TOTAL 0.6 MG/DL (0.2-1.0); BLOOD UREA NITROGEN 20 MG/DL (7-18); CALCIUM LEVEL 9.4 MG/DL (8.8-10.2); CARBON DIOXIDE LEVEL 29 MEQ/L (21-32); CHLORIDE LEVEL 105 MEQ/L (98-107); CHOLESTEROL LEVEL 213 MG/DL (<200); CHOLESTEROL RISK RATIO 4.018 (<5); CREATININE FOR GFR 0.81 MG/DL (0.55-1.30); GLOMERULAR FILTRATION RATE > 60.0 (>39); GLUCOSE, FASTING 98 MG/DL (70-100); HDL CHOLESTEROL 53 MG/DL (>40); LDL CHOLESTEROL 103 MG/DL (<100); NON-HDL-C 160 MG/DL; POTASSIUM SERUM 4.8 MEQ/L (3.5-5.1); SODIUM LEVEL 138 MEQ/L (136-145); TOTAL 25(OH) VITAMIN D 23.1 NG/ML (30.0-100.0); TOTAL PROTEIN 7.4 GM/DL (6.4-8.2); TRIGLYCERIDES LEVEL 286 MG/DL (<150)
== END ==
LOC: M WUC 09:39
PROVIDERS: ATTEND Physician Assistant
DX: E78.2 Mixed hyperlipidemia (principal); R73.01 Impaired fasting glucose

== ENCOUNTER → 2020-01-13 | Outpatient (CLI) | payer OTHER, MEDICARE ==
[2020-01-13 13:14] LABS: BASO % 0.7 % (0.0-1.0); EOS # 0.1 10^3/uL (0.0-0.5); EOS % 2.5 % (0.0-3.0); HEMATOCRIT 44.5 % (36.0-47.0); HEMOGLOBIN 14.5 g/dl (12.0-15.5); LYMPH % 35.2 % (24.0-44.0); MEAN CORPUSCULAR HEMOGLOBIN 29.9 pg (27.0-33.0); MEAN CORPUSCULAR HGB CONC 32.6 g/dl (32.0-36.5); MEAN CORPUSCULAR VOLUME 91.8 fl (80.0-96.0); MONO # 0.5 10^3/uL (0.0-0.8); MONO % 8.3 % (0.0-5.0); NEUTROPHILS % 52.8 % (36.0-66.0); PLATELET COUNT, AUTOMATED 319 10^3/uL (150-450); RED BLOOD COUNT 4.85 10^6/uL (4.00-5.40); WHITE BLOOD COUNT 5.7 10^3/uL (4.0-10.0)
[2020-01-13 13:30] LABS: ALT/SGPT 37 U/L (12-78); BILIRUBIN,TOTAL 0.6 MG/DL (0.2-1.0); BLOOD UREA NITROGEN 18 MG/DL (7-18); CALCIUM LEVEL 9.7 MG/DL (8.8-10.2); CARBON DIOXIDE LEVEL 29 MEQ/L (21-32); CHLORIDE LEVEL 105 MEQ/L (98-107); CHOLESTEROL LEVEL 205 MG/DL (<200); GLOMERULAR FILTRATION RATE > 60.0 (>39); GLUCOSE, FASTING 100 MG/DL (70-100); HDL CHOLESTEROL 50 MG/DL (>40); LDL CHOLESTEROL 98 MG/DL (<100); NON-HDL-C 155 MG/DL; POTASSIUM SERUM 4.8 MEQ/L (3.5-5.1); SODIUM LEVEL 140 MEQ/L (136-145); TOTAL 25(OH) VITAMIN D 46.9 NG/ML (30.0-100.0); TOTAL PROTEIN 6.8 GM/DL (6.4-8.2); TRIGLYCERIDES LEVEL 285 MG/DL (<150)
[2020-01-13 14:31] LABS: HEMOGLOBIN A1c 5.6 %
== END ==
LOC: M WUC 09:07
PROVIDERS: ATTEND Family Medicine
DX: E55.9 Vitamin D deficiency, unspecified (principal); E78.2 Mixed hyperlipidemia; R73.03 Prediabetes

== ENCOUNTER → 2020-02-12 | Outpatient (CLI) | payer OTHER, MEDICARE ==
--- NOTE | 2020-02-17 00:22 | ECWPNPC ---
PATIENT NAME: POONAM LIVE : 1950 GENDER: FEMALE VISIT DATE: 02/12/2020 DISCHARGE DATE: 02/12/2048 VISIT LOCKED DATE TIME: PHYSICIAN: ANGE COE RESOURCE: ANGE COE REASON FOR APPOINTMENT 1. DISCUSS MASSAGE THERAPY HISTORY OF PRESENT ILLNESS GENERAL: PATIENT IS AGREEABLE TO TELEPHONE VISIT TODAY. TELEPHONE VISIT IS BEING DONE DUE TO PATIENT'S FEAR OF COVID 19 AND INCREASED RISK COMING INTO CLINIC. PATIENT IS DOING FAIRLY WELL. ATTENDING GLASSWARE SELECTOR EVERY OTHER WEEK AND MASSAGE THERAPY EVERY OTHER WEEK. SHE WOULD LIKE TO CONTINUE TO USE THESE MODALITIES TO TREAT CHRONIC PAIN. SHE FEELS THOUGH PAIN MAY INTENSIFY WHERE SHE WOULD HAVE TO CALL US TO EVALUATE TO HAVE MORE PROCEDURES BUT AT THIS TIME WISHES TO CONTINUE WITH MASSAGE AND GLASSWARE SELECTOR. -. FALL RISK SCREENING: SCREENING :NO FALLS REPORTED IN THE LAST YEAR PAIN SCREENING: PATIENT HAS A COMPLAINT OF ACUTE OR CHRONIC PAIN :NO NURSING NOTE: -. PAIN CENTER INTAKE QUESTIONS: DO YOU HAVE A HISTORY OF MRSA? :NO DO YOU TAKE A BLOOD THINNERS? :NO DO YOU HAVE ANY BLEEDING DISORDERS? :NO ANY NEW NUMBNESS OR WEAKNESS IN YOUR LEGS OR ARMS? :NO ANY PACEMAKER,DEFIBRILLATOR, OR DORSAL COLUMN STIMULATOR? :NO DO YOU HAVE ANY RASHES OR OPEN SORES? :NO ARE YOU ALLERGIC TO IV DYE? :NO ARE YOU DIABETIC? :NO ANY NEW PROBLEMS WITH YOUR MEDICATIONS? :NO HAVE YOU RECEIVED A VACCINE IN THE PAST 30 DAYS? :NO DO YOU PLAN TO RECEIVE A VACCINE IN THE NEXT 21 DAYS? :NO DO YOU NEED ANY PRESCRIPTION? :NO DO YOU TAKE ANY IMMUNOSUPPRESSIVE MEDICATIONS? :NO IS THERE A CHANCE YOU COULD BE ? :NO ARE YOU BREAST FEEDING? :NO CURRENT MEDICATIONS TAKING TIZANIDINE HCL 2 MG TABLET 1/2 TO 1 TAB ORALLY FOR SPASMS AND PAIN Q8H PRN TAKING IBUPROFEN 800 MG TABLET 1 TABLET WITH FOOD OR MILK NEEDED ORALLY EVERY 8 HOURS NEEDED MDD3 TAKING ATORVASTATIN CALCIUM 10 MG TABLET 1 TABLET ORALLY BEFORE BEDTIME TAKING METOPROLOL SUCCINATE ER 50 MG TABLET EXTENDED RELEASE 24 HOUR 1 TABLET ORALLY BEFORE BEDTIME TAKING LORATADINE 10 MG TABLET 1 TABLET NEEDED ORALLY ONCE A DAY TAKING RAMIPRIL 5 MG CAPSULE ORALLY TAKING GABAPENTIN 300 MG CAPSULE 1 CAPSULE ORALLY FOR PAIN BID NOT-TAKING ADVIL 200 MG TABLET 1 TABLET WITH FOOD OR MILK NEEDED ORALLY TWO TIMES A DAY NOT-TAKING ADVIL PM 200-38 MG TABLET 2 TABLETS AT BEDTIME NEEDED ORALLY ONCE A DAY NOT-TAKING MAGNESIUM CITRATE 1.745 GM/30ML SOLUTION 150 ML ORALLY ONCE NOT-TAKING AMLODIPINE BESYLATE 2.5 MG TABLET 1 TABLET ORALLY BEFORE BEDTIME NOT-TAKING ASPIR-LOW 81 MG TABLET DELAYED RELEASE 1 TABLET ORALLY ONCE A DAY NOT-TAKING OXYCODONE HCL 5 MG TABLET 1 TABLET NEEDED ORALLY TWICE A DAY NEEDED, NOTES: NOT TAKING IT VERY FREQUENTLY NOT-TAKING CARISOPRODOL 350 MG TABLET 1 TABLET NEEDED ORALLY THREE TIMES A DAY NEEDED NOT-TAKING GABAPENTIN 100 MG CAPSULE 1 CAPSULE ORALLY DAILY AT 1200 NOT-TAKING DOCUSATE SODIUM 100 MG CAPSULE 1 CAPSULE NEEDED ORALLY BID NOT-TAKING PANTOPRAZOLE SODIUM 40 MG TABLET DELAYED RELEASE 1 TABLET ORALLY ONCE A DAY NOT-TAKING SENNA-DOCUSATE SODIUM 8.6-50 MG TABLET 1 TABLET ORALLY BID NOT-TAKING HEPARIN SODIUM (PORCINE) 5000 UNIT/ML SOLUTION SUBCUTANEOUSLY EVERY 8 HOURS MEDICATION LIST REVIEWED AND RECONCILED WITH THE PATIENT PAST MEDICAL HISTORY HYPERTENSION DYSLIPIDEMIA RIGHT LOW BACK PAIN 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 2 BROTHERS - ACCIDENT KIDS. SOCIAL HISTORY GENERAL: TOBACCO USE ARE YOU A:NONSMOKER LATEX QUESTIONNAIRE LATEX ALLERGY : HAVE YOU EVER DEVELOPED ANY TYPE OF REACTION AFTER HANDLING LATEX PRODUCTS SUCH RUBBER GLOVES, CONDOMS, DIAPHRAGMS, BALLOONS, SOCKS, OR UNDERWEAR?NO LATEX ALLERGY : HAVE YOU EVER DEVELOPED ANY TYPE OF REACTION DURING OR AFTER DENTAL APPOINTMENT, VAGINAL/RECTAL EXAMINATION, SURGICAL PROCEDURE, OR ANY OTHER EXPOSURE?NO LATEX RISK : HAVE YOU EVER HAD ANY DIFFICULTY BREATHING OR HIVES AFTER EATING OR HANDLING ANY FRUITS, OR VEGETABLES; SUCH KIWI, BANANAS, STONE FRUITS, OR CHESTNUTSNO LATEX RISK : DO YOU HAVE A PREVIOUS PERSONAL HISTORY OF MORE THAN NINE SURGERIES, SPINA BIFIDA, OR REPEATED CATHERIZATIONS? 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 DIET: REGULAR. MARITAL STATUS: . OTHERS AT HOME: SPOUSE. PAIN CLINIC PFS, CLERGY, PUBLIC HEALTH REFERRALS WAS THE PROVIDER NOTIFIED OF ANY PERTINENT INFO?YES HAS THE PATIENT BEEN EDUCATED REGARDING HIS/HER PLAN OF CARE?YES HAS THE PATIENT BEEN EDUCATED REGARDING PAIN, THE RISK FOR PAIN, THE IMPORTANCE OF EFFECTIVE PAIN MANAGEMENT, AND THE PAIN ASSESSMENT PROCESS?YES ADVANCE DIRECTIVE ADVANCE DIRECTIVE DISCUSSED WITH PATIENT:YES HCP - REMY LIVE () REVIEWED WITH PATIENT 04/30/18 0996 JSREVIEWED WITH PATIENT 05/22/18 1215 LASREVIEWED WITH PATIENT 07/29/18 1136 JS. HOSPITALIZATION/MAJOR DIAGNOSTIC PROCEDURE SURGERY- RELATED BACK PAIN 03/2018 REVIEW OF SYSTEMS CONSTITUTIONAL: ANY RECENT FEVER NO . CHILLS NO . WEIGHT CHANGE OF UNKNOWN REASONS NO . GASTROENTEROLOGY: NEW UNEXPLAINABLE CHANGES IN BOWEL CONTROL NO . CONSTIPATION NO . GENITOURINARY: ANY NEW CHANGE IN BLADDER CONTROL? NO . NEUROLOGY: NEW ONSET DIZZINESS OR NEUROLOGICAL CHANGES NOT MENTIONED NO . NEW NUMBNESS OR PAIN PATTERNS NOT MENTIONED AND PERTINENT TO TODAY'S VISIT NO . CARDIOLOGY: NEW CHEST PRESSURE NO . NEW CHEST PAIN NO . RESPIRATORY: UNEXPLAINABLE COUGH NO . NEW SHORTNESS OF BREATH NO . VITAL SIGNS WT 191 LBS, HT 68 IN, BMI 29.04 INDEXNOT OBTAINED DUE TO VIRTUAL VISIT. ASSESSMENTS LUMBOSACRAL SPINAL STENOSIS - M48.07 (PRIMARY) TREATMENT LUMBOSACRAL SPINAL STENOSIS NOTES: PATIENT WILL CONTINUE WITH CHIROPRACTIC AND MASSAGE THERAPY. PATIENT WILL CALL US TO SCHEDULE FOLLOW-UP IF PAIN BECOMES OUT OF CONTROL TO CONSIDER INJECTION THERAPY. TOTAL TIME SPENT DURING TELEPHONE VISIT WAS APPROXIMATELY 11 MINUTES. OTHERS NOTES: 02/12/20 1110 NURSE SPOKE TO REMY AND VERIFIED MOST INFORATION EXCEPT MEDICATION REVIEW, WILL ATTEMPT TO RECONTACT PATIENT AROUND 1200/1230. VICKIE MORALES, CLINICAL ACCOUNT EXECUTIVE. DISPOSITION & COMMUNICATION FOLLOW UP PATIENT WILL CALL FOR FOLLOW-UP IF NEEDED (REASON: LOW BACK PAIN) ELECTRONICALLY SIGNED BY BRIANDA PETTY ON 02/16/2020 AT 11:21 AM EST DISCLAIMER : THIS IS A VISIT SUMMARY EXTRACTED FROM THE [employer] CHART. IT IS NOT A COPY OF THE [employer] PROGRESS NOTE. JND
== END ==
LOC: M PAIN 13:45
PROVIDERS: ATTEND Nurse Practitioner Family
DX: M48.07 Spinal stenosis, lumbosacral region (principal); G89.29 Other chronic pain; I10 Essential (primary) hypertension; Z88.1 Allergy status to other antibiotic agents; Z79.899 Other long term (current) drug therapy

== ENCOUNTER → 2020-06-21 | Outpatient (CLI) | payer OTHER, MEDICARE ==
[~2020-06-21] MED LIST changes: +GABA-282 PO; -GABA-843 PO
--- NOTE | 2020-06-21 14:40 | REP ---
INDICATION: F/U FX. COMPARISON: None. TECHNIQUE: AP and lateral views of the left wrist FINDINGS: Osseous structures, joint spaces, and surrounding soft tissues appear relatively age-appropriate and within normal limits. No obvious acute fracture or dislocation identified. Of note, the trapezium and trapezoid are poorly evaluated due to overlapping structures IMPRESSION: No obvious acute fracture or dislocation <Electronically signed by Alexandru Amezcua > 06/21/20 1568
== END ==
LOC: M SOG 13:18
PROVIDERS: ATTEND Orthopaedic Surgery Sports Medicine
DX: M25.532 Pain in left wrist (principal)

== ENCOUNTER → 2020-09-11 | Outpatient (CLI) | payer OTHER, MEDICARE ==
[~2020-09-11] MED LIST changes: +CALCTAB17 PO; +D31000TA2 PO; +IBUP200C25 PO; +METO1TAB32 PO; +RAMI1CAP24 PO; +TIZA2TA PO
== END ==
LOC: M LABSMTC 08:45
PROVIDERS: ATTEND Anesthesiology
DX: Z01.812 Encounter for preprocedural laboratory examination (principal)

== ENCOUNTER 2020-09-16 11:28 | Day surgery (SDC) | payer OTHER, MEDICARE ==
[~2020-09-16] VITALS: Ht 170.2 cm; Wt 84.4 kg
[~2020-09-16 11:28] MED LIST changes: +NS 1,000 ML IV ONE
[2020-09-16] MEDS ORDERED: propofoL 200 MG/20 ML VIAL As Ordered ONE (11:40)
[2020-09-16] MEDS ORDERED: LIDOCAINE 2% 100MG/5ML SDV (FOR ANES.) As Ordered ONE (11:40)
--- NOTE | 2020-09-16 13:26 | ROOR ---
Patient Name: Michelle Vallejo Procedure Date: 09/16/2020 1:00 PM Date of : 1950 Age: 70 Room: [facility] Gender: Female Note Status: Finalized Procedure: Colonoscopy Indications: Constipation Providers: Donn Blanco Jr, MD Referring MD: Edyta SIMMONS DO Requesting Provider: Medicines: Propofol per Anesthesia Complications: No immediate complications. Procedure: Pre-Anesthesia Assessment: - Prior to the procedure, a History and Physical was performed, and patient medications and allergies were reviewed. The patient is competent. The risks and benefits of the procedure and the sedation options and risks were discussed with the patient. All questions were answered and informed consent was obtained. Patient identification and proposed procedure were verified by the physician and the nurse in the pre-procedure area and in the procedure room. Mental Status Examination: alert and oriented. Airway Examination: normal oropharyngeal airway and neck mobility. Respiratory Examination: clear to auscultation. CV Examination: normal. ASA Grade Assessment: II - A patient with mild systemic disease. After reviewing the risks and benefits, the patient was deemed in satisfactory condition to undergo the procedure. The anesthesia plan was to use moderate sedation / analgesia (conscious sedation). Immediately prior to administration of medications, the patient was re-assessed for adequacy to receive sedatives. The heart rate, respiratory rate, oxygen saturations, blood pressure, adequacy of pulmonary ventilation, and response to care were monitored throughout the procedure. The physical status of the patient was re-assessed after the procedure. The Colonoscope was introduced through the anus and advanced to the cecum, identified by appendiceal orifice and ileocecal valve. The colonoscopy was performed without difficulty. The patient tolerated the procedure well. The quality of the bowel preparation was adequate. Findings: The rectum, recto-sigmoid colon, descending colon, transverse colon, cecum, appendiceal orifice and ileocecal valve appeared normal. Three polyps were found in the sigmoid colon and ascending colon. The polyps were diminutive in size. These polyps were removed with a jumbo cold forceps. Resection and retrieval were complete. Impression: - The rectum, recto-sigmoid colon, descending colon, transverse colon, cecum, appendiceal orifice and ileocecal valve are normal. - Three diminutive polyps in the sigmoid colon and in the ascending colon, removed with a jumbo cold forceps. Resected and retrieved. Recommendation: - Repeat colonoscopy in 5-10 years for surveillance based on pathology results. Procedure Code(s): --- Professional --- 22530, Colonoscopy, flexible; with biopsy, single or multiple Diagnosis Code(s): --- Professional --- K63.5, Polyp of colon K59.00, Constipation, unspecified CPT copyright 2019 [employer]. All rights reserved. The codes documented in this report are preliminary and upon commercial hvac technician review may be revised to meet current compliance requirements. Donn Blanco MD Donn Blanco Jr, MD 09/16/2020 1:26:16 PM Electronically signed by Donn Blanco Jr, MD Number of Addenda: 0 Note Initiated On: 09/16/2020 1:00 PM Estimated Blood Loss: Estimated blood loss: none.
[2020-09-16 13:45] VITALS: BP 164/77
== END 2020-09-16 13:57 | disposition home or self-care (01) ==
LOC: M OPP 11:28
PROVIDERS: ATTEND Surgery
DX: K63.5 Polyp of colon (principal); K59.00 Constipation, unspecified; Z79.899 Other long term (current) drug therapy; Z88.1 Allergy status to other antibiotic agents

== ENCOUNTER → 2020-10-21 | Outpatient (CLI) | payer OTHER ==
[~2020-10-21] MED LIST changes: -NS 1,000 ML IV ONE
[2020-10-21 12:41] LABS: BLOOD UREA NITROGEN 19 MG/DL (7-18); CALCIUM LEVEL 9.6 MG/DL (8.8-10.2); CARBON DIOXIDE LEVEL 25 MEQ/L (21-32); CHLORIDE LEVEL 105 MEQ/L (98-107); CREATININE FOR GFR 0.77 MG/DL (0.55-1.30); GLOMERULAR FILTRATION RATE > 60.0 (>39); GLUCOSE, FASTING 100 MG/DL (70-100); POTASSIUM SERUM 4.8 MEQ/L (3.5-5.1); SODIUM LEVEL 137 MEQ/L (136-145)
== END ==
LOC: M WUC 09:56
PROVIDERS: ATTEND Family Medicine
DX: I10 Essential (primary) hypertension (principal); R91.8 Other nonspecific abnormal finding of lung field

== ENCOUNTER → 2020-10-26 | Outpatient (CLI) | payer OTHER ==
[~2020-10-26] MED LIST changes: +ISOVUE-370 76% 100ML VIAL As Ordered ONE
== END ==
LOC: M RAD 13:03
PROVIDERS: ATTEND Family Medicine
DX: R91.8 Other nonspecific abnormal finding of lung field (principal); E04.1 Nontoxic single thyroid nodule; K80.20 Calculus of gallbladder without cholecystitis without obstruction
CPT/HCPCS: 71260; Q9967

== ENCOUNTER → 2020-10-27 | Outpatient (CLI) | payer OTHER ==
[~2020-10-27] MED LIST changes: -ISOVUE-370 76% 100ML VIAL As Ordered ONE
--- NOTE | 2020-10-27 19:30 | REPVR ---
PROCEDURE INFORMATION: Exam: MR Lumbar Spine Without Contrast Exam date and time: 10/27/2020 4:14 PM Age: 70 years old Clinical indication: Low back pain; Additional info: Radiculopathy TECHNIQUE: Imaging protocol: Multiplanar magnetic resonance images of the lumbar spine without intravenous contrast. COMPARISON: MRI-Spine, L.S. without con 04/18/2018 12:58 PM FINDINGS: Straightening of the lumbar lordosis. Vertebral body heights are maintained. Modic type 1 edematous degenerative endplate change from L3 through L5. No cord compression. No abnormal cord signal. Conus medullaris terminates at the L1 level. Paravertebral soft tissues are unremarkable. L1-L2: Facet hypertrophy causes mild bilateral foraminal narrowing. No significant canal narrowing. L2-L3: Broad-based disc bulge and facet hypertrophy cause mild canal narrowing and mild bilateral foraminal narrowing. L3-L4: Broad-based disc bulge and facet hypertrophy cause mild canal narrowing and mild bilateral foraminal narrowing. L4-L5: Broad-based disc bulge and facet hypertrophy cause mild canal narrowing. Mild left and moderate to severe right foraminal narrowing. Impingement upon the exiting right L4 nerve root. L5-S1: Broad-based disc bulge and facet hypertrophy cause mild left and moderate right foraminal narrowing. No significant canal narrowing. IMPRESSION: Multilevel spondylotic changes of the lumbar spine, including impingement upon the exiting right L4 nerve root, as detailed above. Electronically signed by: Troy Uriarte On 10/27/2020 19:30:27 PM
== END ==
LOC: M PLAIMG 15:22
PROVIDERS: ATTEND Family Medicine
DX: M54.17 Radiculopathy, lumbosacral region (principal); M51.26 Other intervertebral disc displacement, lumbar region; M51.27 Other intervertebral disc displacement, lumbosacral region

== ENCOUNTER → 2020-10-29 | Outpatient (CLI) | payer OTHER ==
--- NOTE | 2020-10-29 10:38 | REP ---
INDICATION: PAIN COMPARISON: None. TECHNIQUE: Fifth digit right foot, three views. FINDINGS: There is a slightly displaced fracture in the proximal shaft of the 5th digit proximal phalange with slight angulation at the fracture site. There is no dislocation. Mineralization and joint spaces are unremarkable. IMPRESSION: Fracture at the proximal shaft of the 5th digit proximal phalange as described. No dislocation. <Electronically signed by Michel Grider > 10/29/20 1031
== END ==
LOC: M WUC 08:03
PROVIDERS: ATTEND Physician Assistant
DX: S92.514A Nondisplaced fracture of proximal phalanx of right lesser toe(s), initial encounter for closed fracture (principal); X58.XXXA Exposure to other specified factors, initial encounter; Y92.9 Unspecified place or not applicable

== ENCOUNTER → 2020-11-08 | Outpatient (CLI) | payer OTHER ==
--- NOTE | 2020-11-08 22:20 | REP ---
INDICATION: NON TOXIC SINGLE THYROID NODULE COMPARISON: 04/23/2018 TECHNIQUE: Mckeon scale and color evaluation of the thyroid gland using the linear high frequency transducer. FINDINGS: Right lobe measures 4.6 x 2.5 x 2.0 cm and includes 8 x 7 x 7 mm upper pole hypoechoic nodule, 2.0 x 1.4 x 1.6 cm complex midpole nodule with cystic component and small calcifications, as well as 9 x 7 x 7 mm lower pole hypoechoic nodule. Left lobe measures 3.9 x 1.6 x 1.3 cm and includes 5 x 3 x 4 mm upper pole hypoechoic nodule, 7 x 5 x 7 mm complex midpole cyst, and 7 x 5 x 6 mm hypoechoic lower pole nodule. IMPRESSION: 1. The bilateral hypoechoic and complex nodules identified on current examination are relatively similar to prior examination. 2. Previously identified large complex cyst in the left thyroid lobe is no longer evident. <Electronically signed by Alexandru Amezcua > 11/08/20 2710
== END ==
LOC: M RAD 10:41
PROVIDERS: ATTEND Family Medicine
DX: E04.1 Nontoxic single thyroid nodule (principal)

== ENCOUNTER → 2020-11-12 | Outpatient (CLI) | payer OTHER, MEDICARE | LOC: M PAIN 13:00 | PROVIDERS: ATTEND Anesthesiology | DX: M47.816 Spondylosis without myelopathy or radiculopathy, lumbar region (principal); G89.29 Other chronic pain; Z88.1 Allergy status to other antibiotic agents; Z79.899 Other long term (current) drug therapy ==

== ENCOUNTER → 2020-12-08 | Outpatient (CLI) | payer OTHER, MEDICARE | LOC: M LABSMTC 10:54 | PROVIDERS: ATTEND Anesthesiology | DX: Z20.822 Contact with and (suspected) exposure to COVID-19 (principal) ==

== ENCOUNTER → 2020-12-13 | Outpatient (CLI) | payer OTHER, MEDICARE ==
[~2020-12-13] MED LIST changes: +BUPIVACAINE HCL 0.25% 30ML VIAL As Ordered ONE; +ISOVUE-M 300 61% 15ML VIAL As Ordered ONE; +LIDOCAINE 1% SDV 30ML VIAL As Ordered ONE
--- NOTE | 2020-12-13 17:14 | REP ---
INDICATION: BILATERAL DIAGNOSTIC LUMBAR FACET BLOCK. COMPARISON: None. TECHNIQUE: Two C-arm views lower lumbar spine. FINDINGS: [place] are seen along the lower lumbar facet joints bilaterally. A small amount of contrast is injected. IMPRESSION: 37 seconds fluoroscopy time utilized. <Electronically signed by Michel Mckeon > 12/13/20 3078
== END ==
LOC: M PAIN 14:20
PROVIDERS: ATTEND Anesthesiology
DX: M47.816 Spondylosis without myelopathy or radiculopathy, lumbar region (principal); Z88.1 Allergy status to other antibiotic agents; Z79.899 Other long term (current) drug therapy
CPT/HCPCS: 64493; 64494; Q9967

== ENCOUNTER → 2021-02-23 | Outpatient (CLI) | payer OTHER, MEDICARE ==
[~2021-02-23] MED LIST changes: -BUPIVACAINE HCL 0.25% 30ML VIAL As Ordered ONE; -ISOVUE-M 300 61% 15ML VIAL As Ordered ONE; -LIDOCAINE 1% SDV 30ML VIAL As Ordered ONE
== END ==
LOC: M PAIN 14:30
PROVIDERS: ATTEND Anesthesiology
DX: M51.16 Intervertebral disc disorders with radiculopathy, lumbar region (principal); G89.29 Other chronic pain; Z88.1 Allergy status to other antibiotic agents; Z79.899 Other long term (current) drug therapy

== ENCOUNTER → 2021-03-01 | Outpatient (CLI) | payer OTHER, MEDICARE ==
[2021-03-01 09:49] LABS: BASO % 0.7 % (0.0-1.0); EOS # 0.2 10^3/uL (0.0-0.5); HEMATOCRIT 44.1 % (36.0-47.0); HEMOGLOBIN 14.7 g/dl (12.0-15.5); LYMPH # 1.9 10^3/uL (1.5-5.0); LYMPH % 35.8 % (24.0-44.0); MEAN CORPUSCULAR HEMOGLOBIN 30.6 pg (27.0-33.0); MEAN CORPUSCULAR HGB CONC 33.3 g/dl (32.0-36.5); MEAN CORPUSCULAR VOLUME 91.7 fl (80.0-96.0); MONO # 0.5 10^3/uL (0.0-0.8); MONO % 9.5 % (2.0-8.0); NEUTROPHILS # 2.7 10^3/uL (1.5-8.5); NEUTROPHILS % 49.9 % (36.0-66.0); PLATELET COUNT, AUTOMATED 295 10^3/uL (150-450); RED BLOOD COUNT 4.81 10^6/uL (4.00-5.40); WHITE BLOOD COUNT 5.4 10^3/uL (4.0-10.0)
[2021-03-01 10:07] LABS: HEMOGLOBIN A1c 5.6 %
[2021-03-01 10:32] LABS: ALBUMIN 3.7 GM/DL (3.2-5.2); ALT/SGPT 46 U/L (12-78); BILIRUBIN,TOTAL 0.6 MG/DL (0.2-1.0); BLOOD UREA NITROGEN 19 MG/DL (7-18); CALCIUM LEVEL 9.4 MG/DL (8.8-10.2); CARBON DIOXIDE LEVEL 27 MEQ/L (21-32); CHLORIDE LEVEL 107 MEQ/L (98-107); CHOLESTEROL LEVEL 214 MG/DL (<200); CHOLESTEROL RISK RATIO 3.962 (<5); CREATININE FOR GFR 0.84 MG/DL (0.55-1.30); GLOMERULAR FILTRATION RATE > 60.0 (>39); GLUCOSE, FASTING 109 MG/DL (70-100); HDL CHOLESTEROL 54 MG/DL (>40); LDL CHOLESTEROL 122 MG/DL (<100); NON-HDL-C 160 MG/DL; POTASSIUM SERUM 4.5 MEQ/L (3.5-5.1); SODIUM LEVEL 139 MEQ/L (136-145); TOTAL PROTEIN 6.7 GM/DL (6.4-8.2); TRIGLYCERIDES LEVEL 191 MG/DL (<150)
== END ==
LOC: M WUC 08:12
PROVIDERS: ATTEND Physician Assistant
DX: R73.01 Impaired fasting glucose (principal)

== ENCOUNTER → 2021-05-18 | Outpatient (CLI) | payer OTHER, MEDICARE | LOC: M LABSMTC 11:48 | PROVIDERS: ATTEND Anesthesiology | DX: Z01.818 Encounter for other preprocedural examination (principal); Z11.52 Encounter for screening for COVID-19 ==

== ENCOUNTER → 2021-05-23 | Outpatient (CLI) | payer OTHER, MEDICARE ==
[~2021-05-23] MED LIST changes: +BUPIVACAINE HCL 0.25% 30ML VIAL As Ordered ONE; -D31000TA2 PO; +ISOVUE-M 300 61% 15ML VIAL As Ordered ONE; +LIDOCAINE 1% SDV 30ML VIAL As Ordered ONE; +VITA100093 PO
== END ==
LOC: M PAIN 08:30
PROVIDERS: ATTEND Anesthesiology
DX: M47.816 Spondylosis without myelopathy or radiculopathy, lumbar region (principal); M47.817 Spondylosis without myelopathy or radiculopathy, lumbosacral region; Z88.1 Allergy status to other antibiotic agents; Z79.899 Other long term (current) drug therapy
CPT/HCPCS: 64493; 64494; Q9967

== ENCOUNTER → 2021-06-07 | Outpatient (CLI) | payer OTHER, MEDICARE ==
[~2021-06-07] MED LIST changes: -BUPIVACAINE HCL 0.25% 30ML VIAL As Ordered ONE; -ISOVUE-M 300 61% 15ML VIAL As Ordered ONE; -LIDOCAINE 1% SDV 30ML VIAL As Ordered ONE
== END ==
LOC: M PAIN 14:45
PROVIDERS: ATTEND Nurse Practitioner Family
DX: M47.816 Spondylosis without myelopathy or radiculopathy, lumbar region (principal); M47.817 Spondylosis without myelopathy or radiculopathy, lumbosacral region; G89.29 Other chronic pain; Z88.1 Allergy status to other antibiotic agents; Z79.899 Other long term (current) drug therapy

== ENCOUNTER 2021-07-31 09:22 | Emergency (ER) | payer OTHER, MEDICARE ==
[~2021-07-31] VITALS: Ht 172.7 cm; Wt 88.1 kg
[2021-07-31] MEDS ORDERED: BENZONATATE 100MG CAPSULE PO ONE (10:50)
[2021-07-31] MEDS ORDERED: ALBUTEROL 90 MCG/ACT 8GM HFA INHALER INH ONE (10:50)
[2021-07-31] MEDS ORDERED: guaiFENesin ER 600 MG TAB PO STA (11:02)
[2021-07-31 11:28] LABS: BASO % 0.1 % (0.0-1.0); HEMATOCRIT 47.2 % (36.0-47.0); HEMOGLOBIN 15.6 g/dl (12.0-15.5); LYMPH # 2.1 10^3/uL (1.5-5.0); LYMPH % 17.4 % (24.0-44.0); MEAN CORPUSCULAR HEMOGLOBIN 30.4 pg (27.0-33.0); MEAN CORPUSCULAR HGB CONC 33.1 g/dl (32.0-36.5); MONO # 0.5 10^3/uL (0.0-0.8); NEUTROPHILS # 8.9 10^3/uL (1.5-8.5); NEUTROPHILS % 72.8 % (36.0-66.0); PLATELET COUNT, AUTOMATED 324 10^3/uL (150-450); RED BLOOD COUNT 5.13 10^6/uL (4.00-5.40); WHITE BLOOD COUNT 12.2 10^3/uL (4.0-10.0)
[2021-07-31 11:47] LABS: ERYTHROCYTE SEDIMENTATION RATE 5 mm/hr (0-30)
[2021-07-31 12:15] LABS: BLOOD UREA NITROGEN 16 MG/DL (7-18); CALCIUM LEVEL 9.3 MG/DL (8.8-10.2); CARBON DIOXIDE LEVEL 28 MEQ/L (21-32); CHLORIDE LEVEL 104 MEQ/L (98-107); CREATININE FOR GFR 0.82 MG/DL (0.55-1.30); GLOMERULAR FILTRATION RATE > 60.0 (>39); GLUCOSE, FASTING 121 MG/DL (70-100); POTASSIUM SERUM 4.5 MEQ/L (3.5-5.1); SODIUM LEVEL 137 MEQ/L (136-145)
[2021-07-31 12:36] VITALS: BP 156/85
[2021-07-31] MEDS ORDERED: BENZ200C70 PO (12:56)
[2021-07-31] MEDS ORDERED: MUCI1TAB18 PO (12:56)
[2021-07-31] MEDS ORDERED: guaiFENesin ER 600 MG TAB PO SCH (21:00)
== END 2021-07-31 13:09 | disposition home or self-care (01) ==
LOC: M ED 09:22
DX: J06.9 Acute upper respiratory infection, unspecified (principal); I10 Essential (primary) hypertension; E78.5 Hyperlipidemia, unspecified; Z88.1 Allergy status to other antibiotic agents; Z88.8 Allergy status to other drugs, medicaments and biological substances; Z79.899 Other long term (current) drug therapy

== ENCOUNTER → 2021-11-01 | Outpatient (CLI) | payer MEDICARE, OTHER ==
[~2021-11-01] MED LIST changes: +BENZ200C70 PO; +MUCI1TAB18 PO
[2021-11-01 13:19] LABS: BLOOD UREA NITROGEN 16 MG/DL (7-18); CALCIUM LEVEL 9.6 MG/DL (8.8-10.2); CARBON DIOXIDE LEVEL 29 MEQ/L (21-32); CHLORIDE LEVEL 105 MEQ/L (98-107); CREATININE FOR GFR 0.78 MG/DL (0.55-1.30); GLOMERULAR FILTRATION RATE > 60.0 (>39); GLUCOSE, FASTING 102 MG/DL (70-100); POTASSIUM SERUM 4.7 MEQ/L (3.5-5.1); SODIUM LEVEL 138 MEQ/L (136-145)
== END ==
LOC: M WUC 09:54
PROVIDERS: ATTEND Physician Assistant
DX: I10 Essential (primary) hypertension (principal)

== ENCOUNTER → 2021-11-01 | Outpatient (CLI) | payer MEDICARE, OTHER ==
[2021-11-01 12:33] LABS: PLATELET COUNT, AUTOMATED 267 10^3/uL (150-450)
[2021-11-01 12:44] LABS: INR 0.91; PROTHROMBIN TIME 12.6 SECONDS (12.7-14.5)
[2021-11-01 12:45] LABS: PARTIAL THROMBOPLASTIN TIME 27.6 SECONDS (25.9-37.0)
== END ==
LOC: M WUC 09:56
PROVIDERS: ATTEND Physical Medicine & Rehabilitation
DX: M48.02 Spinal stenosis, cervical region (principal)

== ENCOUNTER → 2021-11-01 | Outpatient (CLI) | payer MEDICARE, OTHER ==
[2021-11-01 12:33] LABS: BASO % 0.4 % (0.0-1.0); EOS # 0.2 10^3/uL (0.0-0.5); EOS % 2.4 % (0.0-3.0); HEMATOCRIT 43.4 % (36.0-47.0); HEMOGLOBIN 14.2 g/dl (12.0-15.5); LYMPH # 2.1 10^3/uL (1.5-5.0); LYMPH % 29.4 % (24.0-44.0); MEAN CORPUSCULAR HEMOGLOBIN 30.9 pg (27.0-33.0); MEAN CORPUSCULAR HGB CONC 32.7 g/dl (32.0-36.5); MEAN CORPUSCULAR VOLUME 94.3 fl (80.0-96.0); MONO # 0.4 10^3/uL (0.0-0.8); MONO % 6.1 % (2.0-8.0); NEUTROPHILS # 4.3 10^3/uL (1.5-8.5); PLATELET COUNT, AUTOMATED 308 10^3/uL (150-450)
[2021-11-01 13:54] LABS: ALBUMIN 4.1 GM/DL (3.2-5.2); ALT/SGPT 86 U/L (12-78); BILIRUBIN,TOTAL 0.8 MG/DL (0.2-1.0); BLOOD UREA NITROGEN 16 MG/DL (7-18); CALCIUM LEVEL 9.4 MG/DL (8.8-10.2); CARBON DIOXIDE LEVEL 30 MEQ/L (21-32); CHLORIDE LEVEL 106 MEQ/L (98-107); CHOLESTEROL LEVEL 194 MG/DL (<200); CHOLESTEROL RISK RATIO 3.803 (<5); FREE T4 0.82 NG/DL (0.76-1.46); GLOMERULAR FILTRATION RATE > 60.0 (>39); GLUCOSE, FASTING 102 MG/DL (70-100); HDL CHOLESTEROL 51 MG/DL (>40); LDL CHOLESTEROL 90 MG/DL (<100); NON-HDL-C 143 MG/DL; POTASSIUM SERUM 4.7 MEQ/L (3.5-5.1); SODIUM LEVEL 140 MEQ/L (136-145); THYROID STIMULATING HORMONE 0.885 uIU/ML (0.358-3.740); TOTAL PROTEIN 6.9 GM/DL (6.4-8.2); TRIGLYCERIDES LEVEL 266 MG/DL (<150)
[2021-11-01 14:45] LABS: TOTAL 25(OH) VITAMIN D 56.9 NG/ML (30.0-100.0)
[2021-11-01 15:22] LABS: HEMOGLOBIN A1c 5.7 %
== END ==
LOC: M WUC 09:51
PROVIDERS: ATTEND Nurse Practitioner Adult Health
DX: I10 Essential (primary) hypertension (principal); E78.2 Mixed hyperlipidemia; R73.01 Impaired fasting glucose; E55.9 Vitamin D deficiency, unspecified

== ENCOUNTER → 2021-11-21 | Outpatient (CLI) | payer OTHER | LOC: M RAD 11:02 | PROVIDERS: ATTEND Family Medicine | DX: E04.1 Nontoxic single thyroid nodule (principal) ==

== ENCOUNTER → 2021-12-12 | Outpatient (CLI) | payer OTHER ==
[2021-12-12 13:38] LABS: ALBUMIN 4.4 GM/DL (3.2-5.2); BILIRUBIN,DIRECT 0.1 MG/DL (0.0-0.2); BILIRUBIN,TOTAL 0.5 MG/DL (0.2-1.0); CHOLESTEROL RISK RATIO 2.966 (<5); TOTAL PROTEIN 7.1 GM/DL (6.4-8.2)
== END ==
LOC: M WUC 09:58
PROVIDERS: ATTEND Nurse Practitioner Adult Health
DX: E78.2 Mixed hyperlipidemia (principal); R94.5 Abnormal results of liver function studies

== ENCOUNTER → 2022-01-11 | Outpatient (CLI) | payer OTHER | LOC: M WHC 11:52 | PROVIDERS: ATTEND Nurse Practitioner Adult Health | DX: Z12.31 Encounter for screening mammogram for malignant neoplasm of breast (principal) ==

== ENCOUNTER → 2022-03-13 | Outpatient (REF) | payer OTHER ==
[2022-03-13 10:56] LABS: HEMOGLOBIN A1c 5.3 % (4.0-6.0)
[2022-03-13 11:18] LABS: ALBUMIN 4.3 G/DL (3.2-5.2); ALKALINE PHOSPHATASE 118 U/L (46-116); ALT/SGPT 40 U/L (7.0-40); AST/SGOT 22 U/L (<34); BILIRUBIN,TOTAL 0.5 MG/DL (0.3-1.2); BLOOD UREA NITROGEN 22 MG/DL (9-23); CALCIUM LEVEL 9.5 MG/DL (8.3-10.6); CARBON DIOXIDE LEVEL 22 MMOL/L (20-31); CHLORIDE LEVEL 106 MMOL/L (98-107); CHOLESTEROL LEVEL 186 MG/DL (<200); CHOLESTEROL RISK RATIO 3.19 (<5); CREATININE FOR GFR 0.82 MG/DL (0.55-1.30); GLOMERULAR FILTRATION RATE > 60.0 (>39); GLUCOSE, FASTING 91 MG/DL (74-106); HDL CHOLESTEROL 58.3 MG/DL (>40); LDL CHOLESTEROL 95.3 MG/DL (<100); NON-HDL-C 128 MG/DL; POTASSIUM SERUM 4.9 MMOL/L (3.5-5.1); SODIUM LEVEL 138 MMOL/L (136-145); TOTAL PROTEIN 6.7 G/DL (5.7-8.2); TRIGLYCERIDES LEVEL 162 MG/DL (<150)
== END ==
LOC: M LABWUC 09:30
PROVIDERS: ATTEND Family Medicine
DX: R73.01 Impaired fasting glucose (principal)

== ENCOUNTER → 2022-07-20 | Outpatient (CLI) | payer OTHER, MEDICARE | LOC: M RAD 16:00 | PROVIDERS: ATTEND Physician Assistant | DX: I65.23 Occlusion and stenosis of bilateral carotid arteries (principal) ==

== ENCOUNTER → 2022-11-16 | Outpatient (CLI) | payer OTHER, MEDICARE | LOC: M RAD 12:19 | PROVIDERS: ATTEND Family Medicine | DX: E04.1 Nontoxic single thyroid nodule (principal) ==

== ENCOUNTER → 2022-12-07 | Outpatient (REF) | payer OTHER, MEDICARE | LOC: M LAB REF 17:53 | PROVIDERS: ATTEND Internal Medicine Endocrinology, Diabetes & Metabolism | DX: E04.2 Nontoxic multinodular goiter (principal) ==

== ENCOUNTER → 2022-12-15 | Outpatient (CLI) | payer OTHER, MEDICARE | LOC: M WUC 09:41 | PROVIDERS: ATTEND Internal Medicine Endocrinology, Diabetes & Metabolism | DX: E04.2 Nontoxic multinodular goiter (principal) ==

== ENCOUNTER → 2023-01-18 | Outpatient (CLI) | payer OTHER, MEDICARE | LOC: M WHC 14:23 | PROVIDERS: ATTEND Family Medicine | DX: Z12.31 Encounter for screening mammogram for malignant neoplasm of breast (principal) ==

== ENCOUNTER → 2023-06-12 | Outpatient (CLI) | payer OTHER, MEDICARE ==
[2023-06-12 10:56] LABS: BASO % 0.5 % (0.0-1.0); EOS # 0.2 10^3/uL (0.0-0.5); EOS % 2.8 % (0.0-3.0); HEMOGLOBIN 14.9 g/dl (12.0-15.5); LYMPH # 2.2 10^3/uL (1.5-5.0); LYMPH % 38.9 % (24.0-44.0); MEAN CORPUSCULAR HGB CONC 33.1 g/dl (32.0-36.5); MEAN CORPUSCULAR VOLUME 93.6 fl (80.0-96.0); MONO # 0.5 10^3/uL (0.0-0.8); MONO % 8.2 % (2.0-8.0); NEUTROPHILS # 2.8 10^3/uL (1.5-8.5); NEUTROPHILS % 48.9 % (36.0-66.0); PLATELET COUNT, AUTOMATED 315 10^3/uL (150-450); RED BLOOD COUNT 4.81 10^6/uL (4.00-5.40); WHITE BLOOD COUNT 5.6 10^3/uL (4.0-10.0)
[2023-06-12 11:19] LABS: ALBUMIN 4.3 G/DL (3.2-5.2); ALKALINE PHOSPHATASE 115 U/L (46-116); ALT/SGPT 29 U/L (7.0-40); AST/SGOT 19 U/L (<34); BILIRUBIN,TOTAL 0.7 MG/DL (0.3-1.2); BLOOD UREA NITROGEN 11 MG/DL (9-23); CALCIUM LEVEL 9.6 MG/DL (8.3-10.6); CARBON DIOXIDE LEVEL 28 MMOL/L (20-31); CHLORIDE LEVEL 103 MMOL/L (98-107); CHOLESTEROL LEVEL 166 MG/DL (<200); CHOLESTEROL RISK RATIO 2.99 (<5); CREATININE FOR GFR 0.75 MG/DL (0.55-1.30); GLOMERULAR FILTRATION RATE > 60.0 (>39); GLUCOSE, FASTING 93 MG/DL (74-106); HDL CHOLESTEROL 55.4 MG/DL (>40); LDL CHOLESTEROL 82.6 MG/DL (<100); NON-HDL-C 110.6 MG/DL; POTASSIUM SERUM 4.8 MMOL/L (3.5-5.1); SODIUM LEVEL 137 MMOL/L (136-145); TOTAL PROTEIN 6.8 G/DL (5.7-8.2); TRIGLYCERIDES LEVEL 140 MG/DL (<150)
[2023-06-12 11:22] LABS: HEMOGLOBIN A1c 5.5 % (4.0-6.0)
[2023-06-12 11:23] LABS: FREE T4 0.95 NG/DL (0.89-1.76); THYROID STIMULATING HORMONE 1.446 uIU/ML (0.55-4.78)
== END ==
LOC: M WUC 08:19
PROVIDERS: ATTEND Family Medicine
DX: E04.1 Nontoxic single thyroid nodule (principal); I10 Essential (primary) hypertension; R73.01 Impaired fasting glucose

== ENCOUNTER → 2023-11-21 | Outpatient (CLI) | payer OTHER, MEDICARE ==
[~2023-11-21] MED LIST changes: -RAMI1CAP24 PO; +RAMI5CAP60 PO
[2023-11-21 09:53] LABS: BASO % 0.7 % (0.0-1.0); EOS # 0.2 10^3/uL (0.0-0.5); EOS % 3.8 % (0.0-3.0); HEMATOCRIT 43.3 % (36.0-47.0); HEMOGLOBIN 14.6 g/dl (12.0-15.5); LYMPH # 1.8 10^3/uL (1.5-5.0); LYMPH % 29.3 % (24.0-44.0); MEAN CORPUSCULAR HEMOGLOBIN 31.5 pg (27.0-33.0); MEAN CORPUSCULAR HGB CONC 33.7 g/dl (32.0-36.5); MEAN CORPUSCULAR VOLUME 93.5 fl (80.0-96.0); MONO # 0.6 10^3/uL (0.0-0.8); MONO % 9.9 % (2.0-8.0); NEUTROPHILS # 3.4 10^3/uL (1.5-8.5); NEUTROPHILS % 55.8 % (36.0-66.0); PLATELET COUNT, AUTOMATED 312 10^3/uL (150-450); RED BLOOD COUNT 4.63 10^6/uL (4.00-5.40); WHITE BLOOD COUNT 6.1 10^3/uL (4.0-10.0)
[2023-11-21 10:24] LABS: ALBUMIN 4.6 G/DL (3.2-5.2); ALKALINE PHOSPHATASE 126 U/L (46-116); ALT/SGPT 50 U/L (7.0-40); AST/SGOT 29 U/L (<34); BILIRUBIN,TOTAL 0.8 MG/DL (0.3-1.2); BLOOD UREA NITROGEN 14 MG/DL (9-23); CALCIUM LEVEL 9.8 MG/DL (8.3-10.6); CARBON DIOXIDE LEVEL 25 MMOL/L (20-31); CHLORIDE LEVEL 107 MMOL/L (98-107); CHOLESTEROL LEVEL 151 MG/DL (<200); CHOLESTEROL RISK RATIO 2.55 (<5); CREATININE FOR GFR 0.79 MG/DL (0.55-1.30); GLOMERULAR FILTRATION RATE > 60.0 (>39); GLUCOSE, FASTING 100 MG/DL (74-106); HDL CHOLESTEROL 59.1 MG/DL (>40); HEMOGLOBIN A1c 5.4 % (4.0-6.0); LDL CHOLESTEROL 69.9 MG/DL (<100); NON-HDL-C 91.9 MG/DL; POTASSIUM SERUM 4.7 MMOL/L (3.5-5.1); SODIUM LEVEL 138 MMOL/L (136-145); TOTAL PROTEIN 6.9 G/DL (5.7-8.2); TRIGLYCERIDES LEVEL 110 MG/DL (<150)
[2023-11-21 10:36] LABS: TOTAL 25(OH) VITAMIN D 64.4 NG/ML (20.0-100.0)
== END ==
LOC: M WUC 08:40
PROVIDERS: ATTEND Nurse Practitioner Adult Health
DX: R73.01 Impaired fasting glucose (principal); E78.2 Mixed hyperlipidemia; E55.9 Vitamin D deficiency, unspecified; I10 Essential (primary) hypertension

== ENCOUNTER → 2024-01-21 | Outpatient (CLI) | payer OTHER, MEDICARE ==
[~2024-01-21] MED LIST changes: +GABA-1172 PO; -GABA-282 PO
== END ==
LOC: M WHC 12:17
PROVIDERS: ATTEND Family Medicine
DX: Z12.31 Encounter for screening mammogram for malignant neoplasm of breast (principal)

== ENCOUNTER → 2025-01-22 | Outpatient (CLI) | payer OTHER, MEDICARE ==
[~2025-01-22] MED LIST changes: +CALC-134 PO; -CALCTAB17 PO; +CARI-555 PO; -CARI1TAB7 PO; -IBUP-1022 PO; +IBUP600T42 PO
== END ==
LOC: M WHC 10:51
PROVIDERS: ATTEND Nurse Practitioner Adult Health
DX: Z12.31 Encounter for screening mammogram for malignant neoplasm of breast (principal)

== ENCOUNTER → 2025-02-04 | Outpatient (CLI) | payer MEDICARE, OTHER ==
[2025-02-04 12:21] LABS: BASO # 0.0 10^3/uL (0.0-0.2); BASO % 0.6 % (0.0-1.0); EOS # 0.2 10^3/uL (0.0-0.5); EOS % 3.0 % (0.0-3.0); LYMPH # 2.3 10^3/uL (1.5-5.0); LYMPH % 36.2 % (24.0-44.0); MONO # 0.5 10^3/uL (0.0-0.8); MONO % 8.1 % (2.0-8.0); NEUTROPHILS # 3.2 10^3/uL (1.5-8.5); NEUTROPHILS % 51.3 % (36.0-66.0); PLATELET COUNT, AUTOMATED 330 10^3/uL (150-450)
[2025-02-04 12:32] LABS: ALT/SGPT 41.0 U/L (7.0-40); AST/SGOT 26.0 U/L (<34); CALCIUM LEVEL 9.5 MG/DL (8.3-10.6); CARBON DIOXIDE LEVEL 26.0 MMOL/L (20-31); CHLORIDE LEVEL 104.0 MMOL/L (98-107); CHOLESTEROL LEVEL 156.0 MG/DL (<200); CHOLESTEROL RISK RATIO 3.03 (<5); CREATININE FOR GFR 0.84 MG/DL (0.55-1.30); GLOMERULAR FILTRATION RATE 72.0 (>39); LDL CHOLESTEROL 64.8 MG/DL (<100); NON-HDL-C 104.6 MG/DL; POTASSIUM SERUM 4.6 MMOL/L (3.5-5.1); SODIUM LEVEL 140.0 MMOL/L (136-145); TRIGLYCERIDES LEVEL 199.0 MG/DL (<150)
[2025-02-04 12:34] LABS: FREE T4 1.07 NG/DL (0.89-1.76)
[2025-02-04 12:35] LABS: TOTAL 25(OH) VITAMIN D 64.9 NG/ML (20.0-100.0)
[2025-02-04 12:50] LABS: ESTIMATED AVERAGE GLUCOSE 114.0 MG/DL (60-110)
== END ==
LOC: M WUC 10:01
PROVIDERS: ATTEND Nurse Practitioner Adult Health
DX: E04.1 Nontoxic single thyroid nodule (principal)

== ENCOUNTER → 2025-02-04 | Outpatient (CLI) | payer MEDICARE, OTHER ==
[2025-02-04 12:21] LABS: PLATELET COUNT, AUTOMATED 324 10^3/uL (150-450)
[2025-02-04 12:32] LABS: INR 0.86
== END ==
LOC: M WUC 10:03
PROVIDERS: ATTEND Physician Assistant
DX: Z01.818 Encounter for other preprocedural examination (principal)